=== PATIENT | male | born 1945 | race Caucasian/White ===

== ENCOUNTER 2022-04-13 13:23 | Outpatient (CLI) | payer MEDICARE, SELFPAY ==
[2022-04-13 18:51] LABS: Erythrocyte SedimentationRate* 50 mm/hr (2-15)
== END 2022-04-13 13:24 | disposition home or self-care (01) ==
PROVIDERS: PCP Family Medicine; Visit Provider Family Medicine
DX: R50.9 Fever, unspecified (principal)
CPT/HCPCS: 85651; 87086

== ENCOUNTER 2022-05-14 08:46 | Outpatient (CLI) | payer MEDICARE, SELFPAY ==
--- OUTSIDE RECORDS SUMMARY | 2022-05-14 09:05 | XMS_ITS | Encounter Summary ---
:1945 Author Organization [facility] Address [address] [place] [address]. [place] [address] Care Team Providers Name Role Phone Tello Torres MD Primary Care Provider Encounter Details Date Type Department Care Team Description 04/04/2022 Travel Social History Tobacco Use Types Packs/Day Years Used Date Former Smoker Quit: 03/17/19 87 Alcohol Use Standard Drinks/Week Comments Yes 0 (1 standard drink = 0.6 oz pure alcoho l) 1 drink every other day Alcohol Habits Answer Date Recorded How often do you have a drink containing Not asked alcohol? How many drinks containing alcohol do you have Not asked on a typical day when you are drinking? How often do you have six or more drinks on one Not asked occasion? Comment: 1 drink every other day 03/17/2012 Sex Assigned at Date Recorded Not on file COVID-19 Exposure Response Date Recorded In the last 10 days, have you been in contact with No / Unsu re 04/04/2022 1:21 PM CDT someone who was confirmed or suspected to have Coronavirus/COVID-19? documented as of this encounter Plan of Treatment Not on filedocumented as of this encounter Visit Diagnoses Not on filedocumented in this encounter Care Teams Tearer Press Clipping Relationship Specialty Start Date End Date Tello Torres MD PCP - General Family Practice 03/06/12 [facility] [address] [place] [id number] documented as of this encounter
--- OUTSIDE RECORDS SUMMARY | 2022-05-14 09:05 | XMS_ITS | Clinical Summary ---
:1945 Author Organization [facility] Address [address] [place] [id number] Care Team Providers Name Role Phone Tello Torres MD Primary Care Provider Allergies No known active allergies Medications Medication Sig Dispensed Refills Start Date End Date Status Atorvastatin Calcium Take 10 mg by 0 Active (LIPITOR PO) mouth At Bedtime. NIACIN CR PO Take 500 mg by 0 Ac tive mouth At Bedtime. Multiple Vitamin Take 1 tablet by 0 Active (MULTI-VITAMIN) per mouth daily. tablet oxyCODONE (ROXICODONE) Take 1-2 tablets 50 tablet 0 03/29/2012 Active 5 MG immediate release by mouth every 3 tabletIndications: hours as needed. Status post THR (total hip replacement) Active Problems Problem Noted Date Status post THR (total hip replacement) 03/27/2012 Advanced directives, counseling/discussion 03/27/2012 Overview: Received outside advance directive. HCD: Previously signed by patient and notarized by [employer]. Pet Stylist scanned into EMR as Advance Directive/Living Will document. View document and details in C ode Status History Report. Please see ad guillaume directive for specifics. 03/27/2012 Encounters Date Type Specialty Care Team Description 04/04/2022 Emergency EMERGENCY MEDICINE Benjamin Bullock Acut e pain of both shoulders; Other fatigue 04/04/2022 Travel from Last 3 Months Social History Tobacco Use Types Packs/Day Years [...] Assigned at Date Recorded Not on file Last Filed Vital Signs Vital Sign Reading Time Taken Comments Blood Pressure 132/87 04/04/2022 3:00 PM CDT Pulse 88 04/04/2022 3:00 PM CDT Temperature 36.8 ??C (98.3 ??F) 04/04/2022 1:27 PM CDT Respiratory Rate 16 04/04/2022 1:27 PM CDT Oxygen Saturation 95% 04/04/2022 3:15 PM CDT Inhaled Oxygen Concentration - - Weight 84.8 kg (187 lb) 03/27/2012 5:45 AM CDT Height 182.9 cm (6') 03/27/2012 5:39 AM CDT Body Mass Index 25.36 03/27/2012 5:39 AM CDT Plan of Treatment Health Maintenance Due Date Last Done Comments ANNUAL REVIEW OF HM ORDERS 1945 CT COLONOGRAPHY 1945 FIT-DNA (Cologuard) 1945 FIT 1945 FLEX SIG 1945 COLONOSCOPY 1956 COLORECTAL CANCER SCREENING 1956 HEPATITIS C SCREENING 1964 LIPID 1981 LUNG CANCER SCREENING 1996 AORTIC ANEURYSM SCREENING 2011 (SYSTEM ASSIGNED) FALL RISK ASSESSMENT 2011 MEDICARE ANNUAL WELLNESS 2011 VISIT Pneumococcal Vaccine: 65+ 12/07/2015 12/06/2014, 11/20/2010 , Years (2 - PPSV23 or PCV20) 10/22/2009 ADVANCE CARE PLANNING 03/27/2017 03/27/2012 PHQ-2 (once per calendar 08/15/2021 year) COVID-19 Vaccine (4 - 10/29/2021 07/01/2021, 10/31/2020, Booster for Moderna series) 10/03/2020 INFLUENZA VACCINE (#1) 2022 04/29/2020, 06/18/2019, 06/03/2018, Additional history exists DTAP/TDAP/TD IMMUNIZATION 04/11/2029 04/11/2019, 10/22/2009 (3 - Td or Tdap) ZOSTER IMMUNIZATION Completed 02/18/2021, 12/17/2020, 09/13/2007 HEPATITIS B IMMUNIZATION Aged Out No long er eligible based on patient 's age to complete this topic IPV IMMUNIZATION Aged Out No longer eligi ble based on patient 's age to complete this topic MENINGITIS IMMUNIZATION Aged Out No longe r eligible based on patient 's age to complete this topic Medical Devices Implanted Type Area Psychiatric Technician Device Shelf Model / Identifier Expiration Date Ser ial / Lot Imp Head Femoral Strk Biolox Delta Ceramic 36mm -5mm Right: 11/25/2016 [id number] / Implanted: Qty: 1 on 03/27/2012 by Andrzej Ricks MD at [facility] Hip / [id number] Procedures Procedure Name Priority Date/Time Associated Comments Diagnosis COVID-19 VIRUS STAT 04/04/2022 2:30 PM Results for this (CORONAVIRUS) BY PCR CDT procedu re are in the results section. CBC WITH PLATELETS & STAT 04/04/2022 2:13 PM R esults for this DIFFERENTIAL CDT procedure are i n the results section. CK TOTAL STAT 04/04/2022 2:13 PM Results f or this CDT procedure are i n the results section. ERYTHROCYTE STAT 04/04/2022 2:13 PM Results f or this SEDIMENTATION RATE CDT procedure are in AUTO the results section. CBC WITH PLATELETS AND STAT 04/04/2022 2:13 PM Results for this DIFFERENTIAL CDT procedure are i n the results section. TROPONIN T, HIGH STAT 04/04/2022 2:13 PM Resul ts for this SENSITIVITY CDT procedure are i n the results section. BASIC METABOLIC PANEL STAT 04/04/2022 2:13 PM Results for this CDT procedure are i n the results section. EKG 12-LEAD, TRACING STAT 04/04/2022 2:06 PM R esults for this ONLY CDT procedure are i n the results section. EKG CARDIAC - HIM SCAN 04/04/2022 12:00 AM CDT from Last 3 Months Results Asymptomatic COVID-19 Virus (Coronavirus) by PCR Nasopharyngeal (04/04/2022 2:30 PM CDT) Analysis Performed At Patho logist Time Signature SARS CoV2 PCR Negative Negative 04/04/2022 LABORATORY 3:23 PM CDT Comment: NEGATIVE: SARS-CoV-2 (COVID-19) RNA not detected, presumed negative. Specimen Anatomical Location / Collection Method Collection Sandoval e Received Time (Source) Laterality / Volume Swab NASOPHARYNGEAL Non-blood 04/04/2022 2:30 04/04/2022 2:42 STRUCTURE / Unknown Collection / PM CDT PM CDT Unknown Narrative [facility] - 04/04/2022 3:23 PM CDT Testing was performed using the Xpert Xpress SARS-CoV-2 Assay on the [employer]. A dditional information about this Emergency Use Authorization (EUA) a ssay can be found via the Lab Guide. This test should be ordered for t he detection of SARS-CoV-2 in individuals who meet SARS-CoV-2 clinical and/or epidemiological criteria. Test performance is unknown in asymptomatic patients. This test is for in vitro diagnostic use unde r the FDA EUA for laboratories certified under CLIA to per form high complexity testing. This test has not been FDA cleared or ap proved. A negative result does not rule out the presence of PCR in hibitors in the specimen or target RNA in concentration below the li adriano of detection for the assay. The possibility of a false negati ve should be considered if the patient's recent exposure or clinica l presentation suggests COVID-19. This test was validated by the [facility]. This laboratory is certified under the Clinical Laboratory Improvement Amendments of 1988 (CLIA-88) as qualified to perform high complexity laboratory testing. Benjamin Bullock MD LAB - MICRO GENERAL ORDERABL ES Performing Organization Address City/State/ZIP Code [place] [address] Care [facility] [address] Lab (1st floor, no room number) (ABNORMAL) CBC with platelets and differential (04/04/2022 2:13 PM CDT) Patholo gist Method Time Signature WBC Count 7.3 4.0 - 04/04/2022 LABORATORY 11.0 2:23 PM CDT 10e3/uL RBC Count 4.05 (L) 4.40 - 04/04/2022 [facility] 5.90 2:23 PM CDT 10e6/uL Hemoglobin 13.2 (L) 13.3 - 04/04/2022 [facility] 17.7 g/dL 2:23 PM CDT Hematocrit 39.7 (L) 40.0 - 04/04/2022 [facility] 53.0 % 2:23 PM CDT MCV 98 78 - 100 04/04/2022 [facility] fL 2:23 PM CDT MCH 32.6 26.5 - 04/04/2022 [facility] 33.0 pg 2:23 PM CDT MCHC 33.2 31.5 - 04/04/2022 [facility] 36.5 g/dL 2:23 PM CDT RDW 13.0 10.0 - 04/04/2022 [facility] 15.0 % 2:23 PM CDT Platelet Count 136 (L) 150 - 450 04/04/2022 [facility] 10e3/uL 2:23 PM CDT % Neutrophils 76 % 04/04/2022 [facility] 2:23 PM CDT % Lymphocytes 14 % 04/04/2022 [facility] 2:23 PM CDT % Monocytes 10 % 04/04/2022 [facility] 2:23 PM CDT % Eosinophils 0 % 04/04/2022 [facility] 2:23 PM CDT % Basophils 0 % 04/04/2022 [facility] 2:23 PM CDT % Immature 0 % 04/04/2022 [facility] Granulocytes 2:23 PM CDT NRBCs per 100 0 <1 /100 04/04/2022 [facility] WBC 2:23 PM CDT Absolute 5.5 1.6 - 8.3 04/04/2022 [facility] Neutrophils 10e3/uL 2:23 PM CDT Absolute 1.0 0.8 - 5.3 04/04/2022 [facility] Lymphocytes 10e3/uL 2:23 PM CDT Absolute 0.8 0.0 - 1.3 04/04/2022 [facility] Monocytes 10e3/uL 2:23 PM CDT Absolute 0.0 0.0 - 0.7 04/04/2022 [facility] Eosinophils 10e3/uL 2:23 PM CDT Absolute 0.0 0.0 - 0.2 04/04/2022 [facility] Basophils 10e3/uL 2:23 PM CDT Absolute 0.0 <=0.4 04/04/2022 [facility] Immature 10e3/uL 2:23 PM CDT Granulocytes Absolute NRBCs 0.0 10e3/uL 04/04/2022 [facility] 2:23 PM CDT Specimen Anatomical Collection Method / Collection Time Recei katya Time (Source) Location / Volume Laterality Blood VENOUS LINE / Venipuncture / 04/04/2022 2:13 2 2:19 Unknown Unknown PM CDT PM CDT Benjamin Bullock MD LAB - BLOOD ORDERABLES Performing Organization Address City/State/[place] [phone] Care Lab [address] Lab (1st floor, no room number) Troponin T, High Sensitivity (04/04/2022 2:13 PM CDT) P athologist Signature Troponin T, High 12 <=22 ng/L 04/04/2022 [facility] LABOR[facility] Y Sensitivity 2:49 PM CDT Specimen Anatomical Collection Method / Collection Time Recei katya Time (Source) Location / Volume Laterality Blood VENOUS LINE / Venipuncture / 04/04/2022 2:13 2 2:19 Unknown Unknown PM CDT PM CDT Benjamin Bullock MD LAB - BLOOD ORDERABLES Performing Organization Address City/[facility]/[place] [phone] Care Lab [address] Lab (1st floor, no room number) Erythrocyte sedimentation rate auto (04/04/2022 2:13 PM CDT) Patholo gist Method Time Signature Erythrocyte 19 0 - 20 04/04/2022 LABORATORY Sedimentation Rate mm/hr 3:06 PM CDT Specimen Anatomical Collection Method / Collection Time Recei katya Time (Source) Location / Volume Laterality Blood VENOUS LINE / Venipuncture / 04/04/2022 2:13 2 2:19 Unknown Unknown PM CDT PM CDT Benjamin Bullock MD LAB - BLOOD ORDERABLES Performing Organization Address City/[facility]/[place] [address] Care Lab [address] Lab (1st floor, no room number) CK total (04/04/2022 2:13 PM CDT) P athologist Signature CK 136 39 - 308 U/L 04/04/2022 [facility] 3:18 PM CDT Specimen Anatomical Collection Method / Collection Time Recei katya Time (Source) Location / Volume Laterality Blood VENOUS LINE / Venipuncture / 04/04/2022 2:13 2:19 Unknown Unknown PM CDT PM CDT Benjamin Bullock MD LAB - BLOOD ORDERABLES Performing Organization Address City/State/ZIP Code [place] [address] Care [facility] [address] Lab (1st floor, no room number) (ABNORMAL) Basic metabolic panel (04/04/2022 2:13 PM CDT) Analysis Performed At Patho logist Time Signature Creatinine 0.78 0.67 - 04/04/2022 LABORATORY 1.17 mg/dL 2:46 PM CDT Sodium 137 136 - 145 04/04/2022 LABORATORY mmol/L 2:46 PM CDT Potassium 4.1 3.4 - 5.3 04/04/2022 LABORATORY mmol/L 2:46 PM CDT Urea Nitrogen 11.2 8.0 - 23.0 04/04/2022 LABORATORY mg/dL 2:46 PM CDT Chloride 103 98 - 107 04/04/2022 LABORATORY mmol/L 2:46 PM CDT Carbon Dioxide 26 22 - 29 04/04/2022 LABORATORY (CO2) mmol/L 2:46 PM CDT Anion Gap 8 7 - 15 04/04/2022 LABORATORY mmol/L 2:46 PM CDT Glucose 128 (H) 70 - 99 04/04/2022 LABORATORY mg/dL 2:46 PM CDT GFR Estimate >90 >60 04/04/2022 LABORATORY mL/min/1.7 2:46 PM CDT 3m2 Comment: Effective August 04, 2021 eGF Rcr in adults is calculated using the 2020 CKD-EPI creatinine equation which includ es age and gender ([employer] Operator et al., NEJ, DOI: 10.1056/PELKig3453998) Calcium 9.2 8.8 - 10.2 mg/dL 04/04/2022 2:46 PM CDT [facility] Specimen Anatomical Collection Method / Collection Time Recei katya Time (Source) Location / Volume Laterality Blood VENOUS LINE / Venipuncture / 04/04/2022 2:13 2 2:19 Unknown Unknown PM CDT PM CDT Benjamin Bullock MD LAB - BLOOD ORDERABLES Performing Organization Address City/State/ZIP Code [place] [address] Care Lab [address] Lab (1st floor, no room number) EKG 12-lead, tracing only (04/04/2022 2:06 PM CDT) [facility] gist Method Time Signature Systolic Blood mmHg RADIOLOGY Pressure RESULTS Diastolic Blood mmHg RADIOLOGY Pressure RESULTS Ventricular Rate 92 BPM RADIOLOGY RESULTS Atrial Rate 92 BPM RADIOLOGY RESULTS DC Interval 154 ms RADIOLOGY RESULTS QRS Duration 88 ms RADIOLOGY RESULTS QT 348 ms RADIOLOGY RESULTS QTc 430 ms RADIOLOGY RESULTS P [employer] 50 degrees RADIOLOGY RESULTS R AXIS -31 degrees RADIOLOGY RESULTS T [employer] 52 degrees RADIOLOGY RESULTS Interpretation Sinus rhythm RADIOLOGY ECG Left axis deviation RESULTS Abnormal ECG No previous ECGs available Specimen Anatomical Collection Method Collection Time Receive d Time (Source) Location / / Volume Laterality 04/04/2022 2:06 PM 2 6:49 CDT PM CDT Benjamin Bullock MD ECG ORDERABLES Performing Organization Address City/[facility]/ZIP [facility] Phon e Number RADIOLOGY RESULTS EKG CARDIAC - HIM SCAN (04/04/2022 12:00 AM CDT) Specimen (Source) Anatomical Location Collection Method / Collectio n Time Received Time / Laterality Volume 04/04/2022 Narrative This result has an attachment that is no t available. Provider Outside ECG ORDERABLES from Last 3 Months Insurance Payer Benefit Plan / Subscriber ID Effective Dates Phone Addre ss Type Group ARE [facility] MEDICARE [id number] 2019-Present [phone] [address] [place] [address] Advance Directives For more information, please contact: [phone] Latest Code Status on File Code Status Date Activated Date Inactivated Comments Full Code 03/29/2012 10:59 AM 04/04/2022 1:21 PM Full Code 03/27/2012 1:01 PM 03/29/2012 10:59 AM Care Teams Ethnology Professor Relationship Specialty Start Date End Date Tello Torres MD PCP - General Family Practice 03/06/12 [facility] [address] [place] [id number]
--- OUTSIDE RECORDS SUMMARY | 2022-05-14 09:06 | XMS_ITS | Encounter Summary ---
:1945 Author Organization [facility] Address [address] [place] [id number] Care Team Providers Name Role Phone Tello Torres MD Primary Care Provider Reason for Visit Reason Comments Shoulder Pain Encounter Details Date Type Department Care Team Description 04/04/2022 Emergency [facility] Clayton Bullock MD Acute pain of both shoulders; [facility] Emergency Dep t [facility] Other fatigue [address] [place], [place] [address] [place] [id number] [place] [address] [place], [place] [id number] (Wo rk) Social History Tobacco Use Types Packs/Day Years [...] have Coronavirus/COVID-19? documented as of this encounter Last Filed Vital Signs Vital Sign Reading Time Taken Comments Blood Pressure 132/87 04/04/2022 3:00 PM CDT Pulse 88 04/04/2022 3:00 PM CDT Temperature 36.8 ??C (98.3 ??F) 04/04/2022 1:27 PM CDT Respiratory Rate 16 04/04/2022 1:27 PM CDT Oxygen Saturation 95% 04/04/2022 3:15 PM CDT Inhaled Oxygen Concentration - - Weight - - Height - - Body Mass Index - - documented in this encounter Discharge Instructions Discharge InstructionsBenjamin Bullock MD - 04/04/2022 3:25 PM CDT You came in today with fatigue and bilateral shoulder/upper arm pain. We did not find signs of heartdamage or muscle inflammation/breakdown. On my exam I was concerned for possible inflammation and/orinjury to the rotator cuffs. Please follow-up with your doctor to discuss further evaluation. Returnfor new or worsening symptoms. documented in this encounter Medications at Time of Discharge Medication Sig Dispensed Refills Start Date End Date Atorvastatin Calcium Take 10 mg by mouth 0 (LIPITOR PO) At Bedtime. Multiple Vitamin Take 1 tablet by 0 (MULTI-VITAMIN) per tablet mouth daily. NIACIN CR PO Take 500 mg by mouth 0 At Bedtime. oxyCODONE (ROXICODONE) 5 Take 1-2 tablets by 50 tablet 0 MG immediate release mouth every 3 hours tabletIndications: Status as needed. post THR (total hip replacement) documented as of this encounter ED Notes Michele Gamez RN - 04/04/2022 1:29 PM CDT Pt presents for complaint of bilateral upper arm and shoulder pain. Pt states this has been on goingfor a few days. Pt states he has existing shoulder issues, but the pain is now radiating down his biceps. Pt states pain is worse when lifting his arms. ABC intact, A&Ox4. Benjamin Bullock MD - 04/04/2022 1:21 PM CDT History Chief Complaint: Shoulder Pain HPI Colin Diaz is a 76 year old male who presents with malaise, fatigue, bilateral shoulder pain.Symptoms started about 4 days ago. There is no chest pain or shortness of breath or cough or neck pain or weakness or numbness in the arms. He reports his shoulders being banged up and gets pain fromtime to time. No new injuries he can think of. ROS: Review of Systems A 10 point ROS was obtained and negative except as noted here and in HPI Allergies: No Known Allergies Medications: Atorvastatin Calcium (LIPITOR PO) Multiple Vitamin (MULTI-VITAMIN) per tablet NIACIN CR PO oxyCODONE (ROXICODONE) 5 MG immediate release tablet Past Medical History: Past Medical History: Diagnosis Date ??? Hypertension Past Surgical History: Past Surgical History: Procedure Laterality Date ??? ARTHROPLASTY HIP 03/27/2012 Procedure: ARTHROPLASTY HIP; Right Total Hip ; Surgeon: Andrzej Izquierdo MD; Location: [facility] OR ??? wisdom teeth[ Family History: family history is not on file. Social History: reports that he quit smoking about 35 years ago. He does not have any smokeless tobacco history on file. He reports current alcohol use. He reports that he does not use drugs. PCP: Tello Torres Physical Exam Patient Vitals for the past 24 hrs: BP Temp Pulse Resp SpO2 04/04/22 1515 -- -- -- -- 95 % 04/04/22 1500 132/87 -- 88 -- 94 % 04/04/22 1445 92/74 -- 89 -- 95 % 04/04/22 1430 (!) 89/87 -- 88 -- 97 % 04/04/22 1327 (!) 140/84 98.3 ??F (36.8 ??C) 98 16 97 % Physical Exam VS: Reviewed per above HENT: normal speech EYES: sclera anicteric CV: Rate as noted, regular rhythm. RESP: Effort normal. Breath sounds are normal bilaterally. NEURO: Alert, moving all extremities with 5-5 strength, sensation intact light touch in the bilateral upper extremities. Bilateral radial pulses intact. MSK: No deformity of the extremities, pain with empty can maneuver in the bilateral shoulders. No bilateral upper extremity redness or swelling or warmth. SKIN: Warm and dry Emergency Department Course ECG: ECG dated 04/04/2022 at 1406: Normal sinus rhythm, left axis deviation, abnormal ECG. Ventricular rate 92 bpm. MI interval 154 ms. QRS duration 88 ms. QT/QTc 348/438 ms. P-R-T axes 50, -31, 52. Agree with computer interpretation. No prior ECG for comparison. Interpreted by Benjamin Bullock MD on 04/04/2022 at 2:15 PM. Laboratory: Labs Ordered and Resulted from Time of ED Arrival to Time of ED Departure BASIC METABOLIC PANEL - Abnormal Result Value Creatinine 0.78 Sodium 137 Potassium 4.1 Urea Nitrogen 11.2 Chloride 103 Carbon Dioxide (CO2) 26 Anion Gap 8 Glucose 128 (*) GFR Estimate >90 Calcium 9.2 CBC WITH PLATELETS AND DIFFERENTIAL - Abnormal WBC Count 7.3 RBC Count 4.05 (*) Hemoglobin 13.2 (*) Hematocrit 39.7 (*) MCV 98 MCH 32.6 MCHC 33.2 RDW 13.0 Platelet Count 136 (*) % Neutrophils 76 % Lymphocytes 14 % Monocytes 10 % Eosinophils 0 % Basophils 0 % Immature Granulocytes 0 NRBCs per 100 WBC 0 Absolute Neutrophils 5.5 Absolute Lymphocytes 1.0 Absolute Monocytes 0.8 Absolute Eosinophils 0.0 Absolute Basophils 0.0 Absolute Immature Granulocytes 0.0 Absolute NRBCs 0.0 TROPONIN T, HIGH SENSITIVITY - Normal Troponin T, High Sensitivity 12 ERYTHROCYTE SEDIMENTATION RATE AUTO - Normal Erythrocyte Sedimentation Rate 19 CK TOTAL - Normal CK 136 COVID-19 VIRUS (CORONAVIRUS) BY PCR - Normal SARS CoV2 PCR Negative Emergency Department Course: Reviewed: I reviewed nursing notes, vitals and past medical history Assessments: I obtained history and examined the patient as noted above. I rechecked the patient and explained findings. Disposition: The patient was discharged to home. Impression & Plan Medical Decision Making: Patient presents to the ER for evaluation of intermittent bilateral shoulder/upper arm pain over thepast 4 days. This is accompanied by extreme fatigue. On arrival vital signs are reassuring. On exam there is no evidence of neurovascular compromise in the bilateral upper extremities. No signs of joint effusion or skin soft tissue infection. No weakness or numbness to suggest obvious neuropathy in the extremities. With pain worsened with empty can maneuver, I am concerned for possible rotator cuff pathology contributing to symptoms. No evidence of ACS or rhabdomyolysis or elevated inflammatory markers to suggest processes such as PMR. COVID testing is negative. At this time no emergent condition identified to explain his symptoms. Encouraged ongoing primary care follow-up. Return precautions discussed prior to discharge. Diagnosis: ICD-10-CM 1. Acute pain of both shoulders M25.511 M25.512 2. Other fatigue R53.83 Discharge Medications: New Prescriptions No medications on file 04/04/2022 Benjamin Bullock MD Lindenbaum, Elan, MD 04/04/22 1542 documented in this encounter Plan of Treatment Not on filedocumented as of this encounter Procedures Procedure Name Priority Date/Time Associated Comments Diagnosis COVID-19 VIRUS STAT 04/04/2022 2:30 PM Results for this (CORONAVIRUS) BY PCR CDT procedu re are in the results section. CBC WITH PLATELETS AND STAT 04/04/2022 2:13 PM Results for this DIFFERENTIAL CDT procedure are i n the results section. TROPONIN T, HIGH STAT 04/04/2022 2:13 PM Resul ts for this SENSITIVITY CDT procedure are i n the results section. CBC WITH PLATELETS & STAT 04/04/2022 2:13 PM R esults for this DIFFERENTIAL CDT procedure are i n the results section. ERYTHROCYTE STAT 04/04/2022 2:13 PM Results f or this SEDIMENTATION RATE CDT procedure are in AUTO the results section. CK TOTAL STAT 04/04/2022 2:13 PM Results f or this CDT procedure are i n the results section. BASIC METABOLIC PANEL STAT 04/04/2022 2:13 PM Results for this CDT procedure are i n the results section. EKG 12-LEAD, TRACING STAT 04/04/2022 2:06 PM R esults for this ONLY CDT procedure are i n the results section. documented in this encounter Results Asymptomatic COVID-19 Virus (Coronavirus) by PCR [...] the Xpert Xpress SARS-CoV-2 Assay on the [employer]. A dditional information about this [...] COVID-19. This test was validated by the [facility]. This laboratory is certified under the Clinical Laboratory Improvement Amendments of 1988 (CLIA-88) as qualified to perform high complexity laboratory testing. Benjamin Bullock MD LAB - MICRO GENERAL ORDERABL ES Performing Organization Address City/[facility]/[place] [address] Care Lab [address] [facility] Lab (1st floor, no room number) CK [...] LAB - BLOOD ORDERABLES Performing Organization Address City/[facility]/ZIP [facility] [place] [address] Care Lab [address] Lab (1st floor, no room number) Erythrocyte sedimentation rate auto (04/04/2022 2:13 PM CDT) [facility] Method Time Signature Erythrocyte 19 0 - 20 04/04/2022 [facility] Sedimentation Rate mm/hr 3:06 PM CDT Specimen Anatomical Collection Method / Collection Time Recei katya Time (Source) Location / Volume Laterality Blood VENOUS LINE / Venipuncture / 04/04/2022 2:13 2:19 Unknown Unknown PM CDT PM CDT Benjamin Bullock MD LAB - BLOOD ORDERABLES Performing Organization Address City/State/ZIP Code Ph[place] [phone] Care Lab [address] Lab (1st floor, no room number) (ABNORMAL) CBC with platelets and differential (04/04/2022 2:13 PM CDT) [facility] Method Time Signature WBC Count 7.3 4.0 - 04/04/2022 [facility] 11.0 2:23 PM CDT 10e3/uL RBC [...] 2:23 PM CDT Absolute 0.0 <=0.4 04/04/2022 LABORATORY Immature 10e3/uL 2:23 PM CDT Granulocytes [...] Address City/State/ZIP Code [place] [address] Care Lab [address] [facility] Lab (1st floor, no room number) Troponin T, High Sensitivity (04/04/2022 2:13 PM CDT) athologist Signature Troponin T, High 12 <=22 [...] City/State/ZIP Code [place] [address] Care Lab [address] Lab (1st floor, no room number) [...] equation which includ es age and gender (Ruba et al., NEJM, DOI: 10.1056/MGOGdm6169612) Calcium 9.2 8.8 - 10.2 mg/dL 04/04/2022 2:46 PM CDT [facility] Specimen Anatomical Collection Method / Collection Time Recei katya Time (Source) Location / Volume Laterality Blood VENOUS LINE / Venipuncture / 04/04/2022 2:13 2 2:19 Unknown Unknown PM CDT PM CDT Benjamin Bullock MD LAB - BLOOD ORDERABLES Performing Organization Address City/State/ZIP Code [place] [address] Care Lab [address] Lab (1st floor, no room number) EKG 12-lead, tracing only (04/04/2022 2:06 PM CDT) [facility] Method Time Signature Systolic Blood mmHg RADIOLOGY Pressure RESULTS Diastolic Blood mmHg RADIOLOGY Pressure RESULTS Ventricular Rate 92 BPM RADIOLOGY RESULTS Atrial Rate 92 BPM RADIOLOGY RESULTS MI Interval 154 ms RADIOLOGY RESULTS QRS Duration 88 ms RADIOLOGY RESULTS QT 348 ms RADIOLOGY RESULTS QTc 430 ms RADIOLOGY RESULTS [place] 50 degrees RADIOLOGY RESULTS R AXIS -31 degrees RADIOLOGY RESULTS [place] 52 degrees RADIOLOGY RESULTS Interpretation Sinus rhythm RADIOLOGY ECG Left axis deviation RESULTS Abnormal ECG No previous ECGs available Specimen Anatomical Collection Method Collection Time Receive d Time (Source) Location / / Volume Laterality 04/04/2022 2:06 PM 2 6:49 CDT PM CDT Benjamin Bullock MD ECG ORDERABLES Performing Organization Address City/[facility]/ZIP [facility] Phon e Number RADIOLOGY RESULTS documented in this encounter Visit Diagnoses Diagnosis Acute pain of both shoulders Other fatigue documented in this encounter Care Teams Insemination Worker Relationship Specialty Start Date End Date Tello Torres MD PCP - General Family Practice 03/06/12 [facility] [address] [place] [address] documented as of this encounter
--- OUTSIDE RECORDS SUMMARY | 2022-05-14 09:06 | XMS_ITS | Encounter Summary ---
:1945 Author Organization [facility] Address [address] [place] [id number] Care Team Providers Name Role Phone Tello Torres MD Primary Care Provider Reason for Visit Auth/Cert - Closed Specialty Diagnoses / Procedures Referred By Contact Refer red To Contact Surgery Diagnoses Degenerative Joint Disease Rh Periop Services Procedures ARTHROPLASTY HIP [address] [place], [place] [address] Phone: Fax: Referral ID Status Reason Start Date Expiration Date Visits Requ ested Visits Authorized [id number] Closed 1 1 Encounter Details Date Type Department Care Team Description 03/27/2012 - Hospital Encounter [facility] Timbo Martín petersonsima post THR 03/30/2012 [place] [address] Inge Donnelly MD (total hip Surgical ORTHOPAEDIC replacement) [address] [facility] [place], [place] [address] [id number] [address] [place] [address] Social History Tobacco Use Types Packs/Day Years [...] Assigned at Date Recorded Not on file documented as of this encounter Last Filed Vital Signs Vital Sign Reading Time Taken Comments Blood Pressure 104/67 03/30/2012 7:00 AM CDT Pulse 78 03/30/2012 7:00 AM CDT Temperature 36.9 ??C (98.5 ??F) 03/30/2012 7:00 AM CDT Respiratory Rate 16 03/30/2012 9:13 AM CDT Oxygen Saturation 100% 03/30/2012 7:00 AM CDT Inhaled Oxygen Concentration - - Weight 84.8 kg (187 lb) 03/27/2012 5:45 AM CDT Height 182.9 cm (6') 03/27/2012 5:39 AM CDT Body Mass Index 25.36 03/27/2012 5:39 AM CDT documented in this encounter Discharge Summaries Mayito Izquierdo MD - 03/29/2012 11:00 AM CDT Diagnosis: DJD Hip Procedure: PADMINI Surgeon: Mayito Izquierdo MD Patient underwent total hip replacement without complication. Patient's hospital stay included physical therapy and DVT prophylaxis. Patient will follow -up in the office 10-14days post-op for wound check. Please refer to chart for any other specifics of this hospital stay. Mayito Izquierdo MD documented in this encounter Discharge Instructions Discharge InstructionsCrintea-Eleanor Tilley MD - 03/30/2012 10:39 AM CDT Call md if: 1.Uncontrolled/persistant temperature (chiills, sweats) 2. Uncontrolled pain despite pain medication 3. Numbness or tingling in operative leg, weakness, falls 4. Increased/persistant redness,swelling, bruising, drainage (yellow/odourous), or bleeding from incision or incision pulling apart. 5. Dizziness, lightheaded, sedation 6. Calf pain, hard/swollen/warm area, chest pain or shortness of breath 7. Constipation despite taking over the counter stool softner as directed and laxative for constipation (take as directed) Other instructions: See general discharge instruction sheet for hips. 1. Do exercises as instructed by therapist 2. Observe your hip precautions. 3. Walk daily increasing distance and time each day by a little. 4. Ice hip for swelling and discomfort 3-4 times daily for 20 minutes 5. May shower, change dressing daily and examine incision when uncovered for s/s of infections. Do not soak in tub or pool 6.Notify your dentist of your implant so you can get antibiotics before any dental work or for any other invasive procedure. 7.Follow up apt. 10-14 days,call to make apt. [phone] Izquierdo Follow up with your primary doctor in 3-4 weeks and ask him/her to follow up on your blood cells ( hemoglobin, Platelets) When you have a good bowel regimen you may start taking iron tablet once or twice a day documented in this encounter Medications at Time of Discharge Medication Sig Dispensed Refills Start Date End Date Atorvastatin Calcium Take 10 mg by mouth 0 (LIPITOR PO) At Bedtime. Multiple Vitamin Take 1 tablet by 0 (MULTI-VITAMIN) per mouth daily. tablet NIACIN CR PO Take 500 mg by 0 mouth At Bedtime. oxyCODONE (ROXICODONE) 5 Take 1-2 tablets by 50 tablet 0 MG immediate release mouth every 3 hours tabletIndications: Status as needed. post THR (total hip replacement) aspirin EC 325 MG tablet Take 2 tablets by 120 tablet 0 03/1504/29/2012 mouth two times daily for 30 days. documented as of this encounter Progress Notes Mayito Izquierdo MD - 04/01/2012 12:08 AM CDT Mayito Izquierdo MD - 03/31/2012 9:34 PM CDT Mayito Izquierdo MD - 03/31/2012 9:34 PM CDT Mayito Izquierdo MD - 03/31/2012 9:34 PM CDT Mayito Izquierdo MD - 03/31/2012 9:34 PM CDT Mayito Izquierdo MD - 03/31/2012 9:34 PM CDT Mayito Izquierdo MD - 03/30/2012 1:42 PM CDT [facility] Orthopedic Post-Op Progress Note Assessment and Plan: Assessment: Post-operative day #3 Total hip arthoplasty (Right) Doing well. Pain well-controlled. Plan: Dc today Interval History: Doing well. Continues to improve. Pain is well-controlled. No fevers. Physical Exam: BP 104/67 Pulse 78 Temp(Src) 98.5 ??F (36.9 ??C) (Oral) Resp 16 Ht 1.829 m (6') Wt 84.823 kg (187 lb) BMI 25.36 kg/m2 SpO2 100% Data: Hemoglobin Date Value Range Status 03/30/2012 9.6* 13.3-17.7 (g/dL) Final ] INR/Prothrombin Time MAYITO IZQUIERDO MD Eleanor Raymundo MD - 03/30/2012 10:40 AM CDT [facility] Hospitalist Progress Note Admission day 03/27/2012 Assessment and Plan: Patient admitted for elective right total hip arthroplasty on Mar 27 had post op anemia and sec syncopal episode, feels better and he wants to be discharged today. No acute c/o. 66 yo with hx of HTN, hyperlipdiemia, DJD POD 2 s/p elective RTHA. Had significant intra-op blood loss, with transfusion of 2u PRBC, 1u FFP and 1u Plt. Post-op hgb was 8.5 after the 2 units. Yesterday had episode of dizziness/presyncope after getting OOB. Was transfused 2 more units of RBC later yesterday. A/P: Syncopal episode on Mar 28 likely related to hypovolemia from acute blood loss anemia. Lisinopril held because low BP ASA held because of the recent bleeding ( no Hx of CAD noted ) Acute post-surgical blood loss anemia: Had significant intra-op blood loss, with transfusion of 2u PRBC, 1u FFP and 1u Plt. Post-op hgb was 8.5 after the 2 units. Thrombocytopenia: stable. Instructed to f/u on it with pcp Hyperlipidemia. niacin and Lipitor . Status post right total hip arthroplasty. The patient will continue with PT and OT as tolerated and pain control as per Orthopedics. DVT prophylaxis. Per Orthopedics. DIspo: Per ortho PADMINI pathway. Interval History: No acute c/o. He feels well and he wants to be discharged ROS: negative for fever, chills, cough, wheezes, chest pain, shortness of breath, vomiting, abdominal pain, leg swelling Physical Exam: Blood pressure 104/67, pulse 78, temperature 98.5 ??F (36.9 ??C), temperature source Oral, resp. rate 16, height 1.829 m (6'), weight 84.823 kg (187 lb), SpO2 100.00%. NAD, appears comfortable Skin: no rashes Chest: clear to auscultation bilaterally, good respiratory effort Heart: S1 S2, RRR, no mgr appreciated Abdomen: soft, not tender, Extremities: no clubbing, cyanosis or edema. Neurologic: A, Ox3, no focal signs appreciated Vital Sign Ranges Temperature Temp Av ??F (37.2 ??C) Min: 98.5 ??F (36.9 ??C) Max: 100.2 ??F (37.9 ??C) Blood pressure Systolic (24hrs), Av mmHg, Min:104 mmHg, Max:132 mmHg Diastolic (24hrs), Av mmHg, Min:65 mmHg, Max:74 mmHg Pulse Pulse Av.8 Min: 71 Max: 100 Respirations Resp Av.7 Min: 16 Max: 20 Pulse oximetry SpO2 Av % Min: 95 % Max: 100 % Medications: Current Facility-Administered Medications Medication ??? magnesium hydroxide (MILK OF MAGNESIA) suspension 30 mL ??? 0.9 % sodium chloride IV solution ??? sodium chloride 0.9 % BOLUS 500 mL ??? niacin (NIASPAN) CR tablet 500 mg ??? atorvastatin (LIPITOR) tablet 10 mg ??? sodium chloride (PF) 0.9% PF flush 3 mL ??? sodium chloride (PF) 0.9% PF flush 3 mL ??? sodium chloride (PF) 0.9% PF flush 3 mL ??? rivaroxaban ANTICOAGULANT (XARELTO) tablet 10 mg ??? naloxone (NARCAN) injection 0.1-0.4 mg ??? ondansetron (ZOFRAN-ODT) disintegrating tablet 4 mg Or ??? ondansetron (ZOFRAN) injection 4 mg ??? docusate sodium (COLACE) capsule 100 mg ??? bisacodyl (DULCOLAX) suppository 10 mg ??? phosphate (FLEET) enema 1 enema ??? zolpidem (AMBIEN) tablet 5 mg ??? celecoxib (celeBREX) capsule 200 mg ??? phenol-menthol (CEPASTAT) lozenge 1-2 lozenge ??? DISCONTINUE ACUTE CARE OCCUPATIONAL THERAPIST by end of POD1 ??? HYDROmorphone (DILAUDID) injection 0.2-0.4 mg ??? oxyCODONE (ROXICODONE) immediate release tablet 5-10 mg ??? hydrOXYzine (ATARAX) tablet 25-50 mg Prescriptions prior to admission Medication Sig Dispense Refill ??? Atorvastatin Calcium (LIPITOR PO) Take 10 mg by mouth At Bedtime. ??? NIACIN CR PO Take 500 mg by mouth At Bedtime. ??? Multiple Vitamin (MULTI-VITAMIN) per tablet Take 1 tablet by mouth daily. ??? DISCONTD: aspirin 325 MG tablet Take by mouth daily. ??? DISCONTD: LISINOPRIL PO Take 10 mg by mouth daily. Intake/Output Summary (Last 24 hours) at 03/30/12 1040 Last data filed at 03/30/12 0800 Gross per 24 hour Intake 2170 ml Output 3450 ml Net -1280 ml Data: Recent labs, imaging, and other studies were reviewed. Lab 03/30/12 0550 03/29/12 0552 03/28/12 1710 03/28/12 0532 WBC 8.3 9.2 -- 10.5 HGB 9.6* 10.0* 10.9* -- HCT 28.1* 29.3* -- 24.6* MCV 95 96 -- 96 PLT 80* 82* 95* -- Lab 03/29/12 0552 03/28/12 0532 03/28/12 0530 03/24/12 0900 NA -- 137 -- -- POTASSIUM -- 4.2 -- 3.9 CHLORIDE -- 107 -- -- CO2 -- 24 -- -- ANIONGAP -- 6 -- -- GLC 101* 117* 117* -- BUN -- 6* -- -- CR -- 0.68 -- 0.84 GFRESTIMATED -- >90 -- >90 GFRESTBLACK -- >90 -- >90 DEX -- 7.4* -- -- MAG -- -- -- -- PHOS -- -- -- -- PROTTOTAL -- -- -- -- ALBUMIN -- -- -- -- BILITOTAL -- -- -- -- ALKPHOS -- -- -- -- AST -- -- -- -- ALT -- -- -- -- Mayito Izquierdo MD - 03/29/2012 11:06 AM CDT EIGHT Mayito Izquierdo MD - 03/29/2012 10:55 AM CDT [facility] Orthopedic Post-Op Progress Note Assessment and Plan: Assessment: Post-operative day #2 Total hip arthoplasty (Right) Doing well. Pain well-controlled. Plan: Continue physical therapy Interval History: Doing well. Continues to improve. Pain is well-controlled. No fevers. Much better after transfusion.Dc tomorrow Physical Exam: BP 121/70 Pulse 82 Temp(Src) 98.3 ??F (36.8 ??C) (Oral) Resp 18 Ht 1.829 m (6') Wt 84.823 kg (187 lb) BMI 25.36 kg/m2 SpO2 98% Data: Hemoglobin Date Value Range Status 03/29/2012 10.0* 13.3-17.7 (g/dL) Final ] INR/Prothrombin Time MAYITO IZQUIERDO MD Sveta Marino MD - 03/29/2012 9:12 AM CDT [facility] Hospitalist Progress Note Assessment and Plan: Addendum: Plans for discharge noted, discharge medications reconciled. Will have patient hold ASA and Lisinopril until seen by PCP in one week with repeat CBC 66 yo with hx of HTN, hyperlipdiemia, DJD POD 2 s/p elective RTHA. Had significant intra-op blood loss, with transfusion of 2u PRBC, 1u FFP and 1u Plt. Post-op hgb was 8.5 after the 2 units. Yesterday had episode of dizziness/presyncope after getting OOB. Was transfused 2 more units of RBC later yesterday. A/P: 1. Syncopal episode likely related to hypovolemia from acute blood loss anemia. -- Patient tells me he sat at the edge of bed without symptoms. Planning to work with PT/OT today tosee if symptoms recur -- Continue to hold lisinopril -- BP slightly soft overnight, will gently rehydrate with 500 cc more of NS -- Holding ASA ( no Hx of CAD noted ) 2. Acute post-surgical blood loss anemia: Hb stable at around 10 today after receiving 2 unit of pRBC yesterday afternoon. Recheck tomorrow am if patient stays overnight. 3. Thrombocytopenia: Nor prior baseline, so unclear if chronic or acute, could be related to consumption due to acute bleeding, stable. May need further work up as outpatient if does not improve. 4. Hyperlipidemia. The patient can be resumed on his niacin and Lipitor as tolerated. 5. Status post right total hip arthroplasty. The patient will continue with PT and OT as tolerated and pain control as per Orthopedics. 6. DVT prophylaxis. Per Orthopedics. 7. DIspo: Per ortho PADMINI pathway. Interval History: Feels well today, has not had a chance to stand up yet, pain is controlled. Physical Exam: Blood pressure 121/70, pulse 82, temperature 98.3 ??F (36.8 ??C), temperature source Oral, resp. rate 18, height 1.829 m (6'), weight 84.823 kg (187 lb), SpO2 98.00%. Exam: GENERAL: Comfortable. PSYCH: pleasant, oriented, No acute distress. EYES: Normal conjunctiva. HEART: Normal S1, S2 with no edema. LUNGS: Clear to auscultation, SKIN: Dressing over right hip c/d/i , no surrounding hematoma felt Data: NA 137 03/28/2012 CHLORIDE 107 03/28/2012 BUN 6 03/28/2012 POTASSIUM 4.2 03/28/2012 CO2 24 03/28/2012 CR 0.68 03/28/2012 Lab Results Component Value Date WBC 9.2 03/29/2012 WBC 10.5 03/28/2012 HGB 10.0* 03/29/2012 HGB 10.9* 03/28/2012 PLT 82* 03/29/2012 PLT 95* 03/28/2012 CR 0.68 03/28/2012 CR 0.84 03/24/2012 Medications: I have reviewed this patient's current medications. Bobo Terry OT - 03/28/2012 3:38 PM CDT 03/28/12 4347 Living Environment [R] Lives With spouse Living Arrangements house Home Accessibility stairs to enter home;stairs w/i home;tub/shower is not walk in Number of Stairs to Enter Home 3 Number of Stairs Within Home 2 Transportation Available car;family or friend will provide Self-Care Dominant Hand right Usual Activity Tolerance excellent Current Activity Tolerance poor Regular Exercise yes Activity/Exercise/Self-Care Comment bikes regularly. [R] Functional Level Prior [R] Ambulation 0 - independent [R]Transferring 0 - independent [R] Toileting 0 - independent [R] Bathing 0 - independent [R] Dressing 0 - independent [R] Eating 0 - independent [R] Communication 0 - understands/communicates w/o difficulty [R] Cognition 0 - no cognition issues reported [R] Fall history within last six months no [R] Which of the above functional risks had a recent onset or change? ambulation;transferring;toileting;bathing;dressing General Information, OT Eval Onset of Illness/Injury or Date of Surgery - Date 03/27/[address] Thakkar Patient/Family Goals Statement To get out as soon as possible and to be comfortable using a walker Pertinent History of Current Problem Pt s/p R PADMINI posterior approach on 03/27/12. Precautions/Limitations right hip precautions Weight-Bearing Status - RLE weight-bearing as tolerated Cognitive Status Examination - OT Eval Orientation orientation to person, place and time Level of Consciousness alert Follows Commands and Answers Questions 100% of the time Personal Safety and Judgment intact Memory intact Attention No deficits were identified Organization/Problem Solving No deficits were identified Executive Function No deficits were identified Visual Perception - OT Eval Visual Perception no deficits were identified Visual Perception Comments wears glasses, light sensitivity this a.m. Sensory Examination - OT Eval Sensory Examination (WFL) no deficits were identified Pain Assessment Patient Currently in Pain Yes, see Vital Sign flowsheet (Pt rates resting pain 3/10) Range of Motion (ROM), OT Eval Range of Motion (WFL) no deficits were identified ROM Comment B UE AROM WNLs Strength Manual Muscle Testing Results no deficits were identified Strength Comments B UE AROM Mobility Bed Mobility Bed mobility skill: Scooting/Bridging;Bed mobility skill: Sit to supine;Bed mobility skill: Supine to sit Bed Mobility Skill: Scooting/Bridging, Rehab Eval Level of [place]: Scooting/Bridging minimum assist (75% patients effort) Physical Assist/Nonphysical Assist: Scooting/Bridging 1 person assist Bed Mobility Skill: Sit to Supine Level of [place]: Sit/Supine minimum assist (75% patients effort) Physical Assist/Nonphysical Assist: Sit/Supine verbal cues;supervision;1 person assist Assistive Device: Sit/Supine overhead trapeze Bed Mobility Skill: Supine to Sit Level of [place]: Supine/Sit minimum assist (75% patients effort) Physical Assist/Nonphysical Assist: Supine/Sit supervision;verbal cues;1 person assist Assistive Device: Supine/Sit overhead trapeze Activities of Daily Living Analysis Impairments Contributing to Impaired Activities of Daily Living pain;strength decreased;post surgical precautions;flexibility decreased General Therapy Interventions Planned Therapy Interventions ADL retraining;transfer training;bed mobility training Clinical Impression, OT Eval Criteria for Skilled Therapeutic Interventions Met yes;treatment indicated OT Diagnosis Decreased independence with ADLs. Rehab Potential good, to achieve stated therapy goals Therapy Frequency daily Predicted Duration of Therapy Intervention (days/wks) 1 week Anticipated Equipment Needs at Discharge shower chair Anticipated Discharge Disposition inpatient rehabilitation facility Risks and Benefits of Treatment have been explained. Yes Patient, Family & other staff in agreement with plan of care Yes Total Evaluation Time Total Evaluation Time (Minutes) 10 Kinjal Uriostegui LSW - 03/28/2012 11:23 AM CDT SWS D: Per MD request to see regarding discharge planning. Chart reviewed, noted pt's admit yesterday after surgery for R THR, noted PT assessment with anticipation of pt's return home on discharge. Pt lives with in their home in [place], stairs to enter and within home. Pt has been independent with ambulation and ADLs prior to his surgery. A: Based on progress thus far anticipate pt's return home on discharge with assist of as needed. PT/OT to assess for and issue needed DME for ambulation and ADLs adjustment. P: No SW needs identified at this time, available until discharge should needs arise. EIGHT Mayito Izquierdo MD - 03/28/2012 10:18 AM CDT [facility] Orthopedic Post-Op Progress Note Assessment and Plan: Assessment: Post-operative day #1 Total hip arthoplasty (Right) Doing well. Pain well-controlled. Plan: Start physical therapy Interval History: Doing well. Continues to improve. Pain is well-controlled. No fevers. X ray ok. hgb low, is to have 2 more units of blood Physical Exam: BP 94/53 Pulse 75 Temp(Src) 98.2 ??F (36.8 ??C) (Oral) Resp 16 Ht 1.829 m (6') Wt 84.823 kg (187 lb) BMI 25.36 kg/m2 SpO2 99% Data: Hemoglobin Date Value Range Status 03/28/2012 8.5* 13.3-17.7 (g/dL) Final ] INR/Prothrombin Time MAYITO IZQUIERDO MD Cleopatra Torres, PT - 03/28/2012 8:57 AM CDT 03/28/12 0800 Quick Adds Type of Visit Initial Living Environment [R] Lives With spouse Living Arrangements house Number of Stairs to Enter Home 3 Number of Stairs Within Home 2 Transportation Available car;family or friend will provide Self-Care Dominant Hand right Usual Activity Tolerance excellent Current Activity Tolerance poor Regular Exercise yes (bike, gym 3x/wk) Equipment Currently Used at Home no Functional Level Prior [R] Ambulation 0 - independent [R]Transferring 0 - independent [R] Toileting 0 - independent [R] Bathing 0 - independent [R] Dressing 0 - independent [R] Cognition 0 - no cognition issues reported [R] Fall history within last six months no General Information Onset of Illness/Injury or Date of Surgery - Date 03/27/[address] Thakkar Patient/Family Goals Statement To return home back to independence Pertinent History of Current Problem s/p R PADMINI d/t DJD Precautions/Limitations right hip precautions Weight-Bearing Status - RLE weight-bearing as tolerated General Observations Patient supine in bed upon arrival, pleasant and agreeable to PT Cognitive Status Examination Orientation orientation to person, place and time Level of Consciousness alert Follows Commands and Answers Questions 100% of the time Personal Safety and Judgment intact Memory intact Pain Assessment Patient Currently in Pain Yes, see Vital Sign flowsheet (11/17) Posture Posture Posture was appropriate Range of Motion (ROM) ROM Comment L LE WFL for transfers and mobility, R LE hip motions decreased s/p R PADMINI Strength Strength Comments L LE WFL for transfers and mobility, impaired R LE s/p R PADMINI Mobility Mobility Comments Independent Transfer Skills Transfer Comments Justin for advancing LE's to EOB, independent with sit to stand to FWW with cues forhand placement, difficulty adhering to hip precautions Gait, PT Eval Gait Comments ambulated approx 3' from EOB to w/c CGA with wheeled walker, good weight bearing onto R LE Balance Balance Comments sitting balance good, standing balance impaired s/p R PADMINI Sensory Examination Sensory Perception no deficits were identified General Therapy Interventions Planned Therapy Interventions gait training;ROM;strengthening;transfer training;home program guidelines Clinical Impression Criteria for Skilled Therapeutic Interventions Met yes;treatment indicated PT Diagnosis s/p R PADMINI APTA Preferred Practice Pattern musculoskeletal Influenced by the following impairments pain, decreased ROM, impaired strength Functional limitations due to impairments impaired functional mobility Rehab Potential good, to achieve stated therapy goals Therapy Frequency 2 times/day Predicted Duration of Therapy Intervention (days/wks) 3 days Anticipated Discharge Disposition home;home w/ assist Risk & Benefits of therapy have been explained Yes Patient, Family & other staff in agreement with plan of care Yes Clinical Impression Comments Patient is a 66 y/o male who presents s/p R PADMINI. Patient presents with impairments in ROM, strength, and pain resulting in impaired functional mobility. Skilled PT is indicated to address above mentioned deficits to return to PLOF. Prognosis is good to return home. Total Evaluation Time Total Evaluation Time (Minutes) 10 Marie Damon - 03/27/2012 1:41 PM CDT 03/27/12 0600 [R] Advance Directives [R] Is there an Advance Health Care Directive? Yes Directive Location Copy in chart Validation of Advance Healthcare Directive Reviewed and valid [facility] Progress Note [facility] Advance Directive Advance Directive found on paper chart, reviewed and validated. AD has not yet been scanned into patient's electronic chart. documented in this encounter H&P Notes Marce Provider - 03/24/2012 10:43 AM CDT Flakita Zheng - 03/17/2012 11:06 AM CDT documented in this encounter Consult Notes Harika Evans PA-C - 03/28/2012 9:47 AM CDT Hospitalist consult Dictated 66 yo with hx of HTN, hyperlipdiemia, DJD POD 1 s/p elective RTHA. Had significant intra-op blood loss, s/p 2u PRBC, 1u FFP and 1u Plt. Post-op hgb was 8.5 after the 2 units. Has no hx of coagulapathy,bleeding d/o hematologic d/o. This am RR was called 2/2 near syncope/syncopal episode when getting OOB with PT. C/o being lightheadedness, dizziness, passed out for a few seconds and came through when sat back down to chair. BP in the 94's after being sat down to wheelchair. Sxs resolved currently. A/P: 1. Syncopal episode likely related to hypovolemia from acute blood loss anemia -transfuse 2 U prbc now -check repeat hgb and plt this afternoon -check INR -hold lisinopril Harika Evans PA-C - 03/28/2012 9:46 AM CDT MEDICINE CONSULTATION PRIMARY CARE PROVIDER: Tello Torres MD. REASON FOR CONSULTATION: Postop medical management and presyncopal episode. HISTORY OF PRESENT ILLNESS: Colin Diaz is a 66-year-old gentleman with a past medical history significant for hypertension and hyperlipidemia who underwent elective right total hip arthroplasty secondary to degenerative joint disease. I actually saw him this morning in the setting of rapid response in which he had a presyncopal/syncopal episode while getting up in a standing position with the physical therapist. In reviewing the operative records, it was noted that there was significant blood loss during the case, not from any 1 source, but was constantly oozing. He had an estimated 2,500 cc of estimated blood loss. Therefore, he got 2 units of packed red blood cell intraoperatively along with 2 units of plasma, 2 units of FFP and 1 unit of platelets. His postoperative hemoglobin this morning after 2 units intraoperatively yesterday is 8.5 from a preoperative of 15. He did have significant drain output of 890 after surgery, but it was clamped and overnight it just put out 200. For total net I's and O's, he is currently still up to 2,900 cc since the beginning of OR. His blood pressure overnight has been fairly stable in the low 110s. However, early this morning he was somewhat hypotensive with a blood pressure 84/48, and he got 500 cc of normal saline. His blood pressure then improved into the mid 90s, but when working physical therapy he did become lightheaded and dizzy. His eyes kindof rolled backwards and he fell down to the wheelchair. He did pass out for maybe a few seconds, butopened his eyes immediately once he reached the wheelchair. He otherwise denies any other complaintssuch as chest pain, shortness of breath, nausea or vomiting, but he is somewhat diaphoretic. Currently, as he is sitting, he states that his symptoms have improved. He is no longer lightheaded and dizzy. His blood pressure taken at that time was 94/53 with a heart rate of 75 and sats in the 99s on room air. Otherwise, he had been in normal state of health prior to surgery. He has well- controlled blood pressure and hyperlipidemia with no recent illness. He has never had any heart attacks or strokes. No previous history of arrhythmias. PAST MEDICAL HISTORY: 1. Hypertension. 2. Hyperlipidemia. 3. DJD. 4. Status post skin cancer removal of basal cell carcinoma. MEDICATIONS: 1. Lipitor 10 mg daily. 2. Lisinopril 10 mg daily. 3. Niacin extended release 500 mg daily. 4. Aspirin 325 mg daily, which he stopped on the . 5. Multivitamins daily. ALLERGIES: No known drug allergies. FAMILY HISTORY: Reviewed and noncontributory. His father did have a history of coronary artery disease and hypertension. Mother had osteoporosis. No history of DVTs or PEs. SOCIAL HISTORY: The patient is a nonsmoker and nondrinker. REVIEW OF SYSTEMS: A 12-point system was reviewed and is all negative beyond those stated in HPI. PHYSICAL EXAMINATION: VITAL SIGNS: T-max is 98.2 with a heart rate of 75. His current blood pressure while sitting is 94/53, respirations are 16 and he is saturating 99% on room air. GENERAL: The patient is an alert, oriented gentleman who is somewhat pale and diaphoretic. HEENT: Pupils are equal, round and react to light. EOMs are intact. Sclerae are nonicteric. Conjunctivae are pink. Oral mucosa is pink and moist. NECK: Supple with no evidence cervical lymphadenopathy or thyromegaly. Trachea is midline. CARDIAC: Regular rate and rhythm, normal S1 and S2, with no significant murmur, rubs or gallops appreciated. PULMONARY: Clear to auscultation bilaterally. No wheezing, rales or rhonchi. No use of accessory muscles or intercostal retraction. ABDOMEN: Bowel sounds are present. Soft, nontender and nondistended with no hepatomegaly. EXTREMITIES: No edema. His right hip dressing is clean, dry and intact with a drain intact. NEUROLOGIC: Cranial nerves II-XII are intact. He has bilateral symmetric upper and lower extremity strength. Sensation is intact distally. He has no focal deficits. PSYCHIATRIC: Mood and affect are appropriate. LABORATORY RESULTS: Again, as discussed above, postoperative hemoglobin is 8.5. White count is normal at 10.5 with a platelet count of 98 with no preoperative hemoglobin of 15. BMP is currently pending. ASSESSMENT/PLAN: Colin Diaz is a 66-year-old gentleman with a history of hypertension and hyperlipidemia who underwent elective right total hip arthroplasty secondary to severe progressive DJD. Heexperienced significant blood loss of 2,500 cc intraoperatively, although with no significant specific source of bleeding identified. He did receive 2 units of packed red blood cells along with FFP michelle unit of platelets intraoperatively per report. He did experience a syncopal episode this morning when working with physical therapy, likely related to vasovagal reaction given his hypovolemia and hypotension. 1. Syncopal episode. Again, I suspect this is related to vasovagal response given that he is hypovolemic secondary to acute blood loss anemia. He is still down 7 grams of blood from where he was preoperatively. I am going to give him 500 cc of normal saline and transfuse 2 units of packed red blood cells this morning with a repeat hemoglobin later this afternoon. Ideally, I would like to keep his hemoglobin around 10 if possible. He does have mild thrombocytopenia with a platelet count of 98, although with no previous comparison. He has no history of thrombocytopenia or any type of hematological illness or malignancy that we are aware of. We will continue to monitor him closely. 2. Acute post-surgical blood loss anemia: Again, as stated above, he will receive 2 units of packed red blood cells today, and we will monitor his hemoglobin and platelets later this afternoon. Again, he has previous known history of coagulopathies or hematological disease. 3. Hypertension. Blood pressure is low related to hypovolemia. His lisinopril has been held today. This can be resumed as blood pressure allows. 4. Hyperlipidemia. The patient can be resumed on his niacin and Lipitor as tolerated. 5. Status post right total hip arthroplasty. The patient will continue with PT and OT as tolerated and pain control as per Orthopedics. 5. DVT prophylaxis. The patient is on Xarelto as per Orthopedics. We will continue to monitor his blood counts closely. Should he have continued bleeding from the drain or persistent anemia despite transfusion, we could consider holding off on his anticoagulation, but ultimately I will defer this to Or thopedics. This patient was discussed with Dr. Marino, who agrees with current plans as outlined above. SVETA MARINO MD As dictated by SALLY HOLLINS MT: MARÍA ELENA#[id number] Name: COLIN DIAZ Account: [id number] : 1945 Consult Date: 03/28/2012 Document: [id number] cc: Tello Torres MD documented in this encounter OR Notes OR Anesthesia - Mayito Izquierdo MD - 03/31/2012 9:39 PM CDT documented in this encounter Miscellaneous Notes Plan of Care - Bhargavi Sebastian OT - 03/30/2012 4:48 PM CDT Problem: General Rehab Plan of Care Goal: Occupational Therapy Goals The patient and/or their labor union business representative will achieve their patient-specific goals related to the plan of care. The patient-specific goals include: Goals to be met by 04/03/12. 1. Mod I with toilet transfer, AE prn. 2. Mod I with tub transfer, DME prn. 3. Mod I with total body dressing, AE prn. 4 I with standing at sink for 3 grooming/hyg. Tasks. Frequency: daily Fall precautions Occupational Therapy Discharge Summary Reason for discharge: Discharged from facility Progress towards goals: Goals partially met. Barriers to achieving goals: Pt. requiring some verbal cues to maintain hip precautions when reaching.. Recommendation(s): No further therapy is recommended. Pt. Discharged home with family to assist as needed. Plan of Care - Maia Lee RN - 03/30/2012 11:17 AM CDT Problem: IP GENERAL POC-ADULT,OB,BEHAVIORAL FVCPM Goal: Individualization/Patient-Specific Goal (Adult,OB,Behavioral The patient and/or their labor union business representative will achieve their patient-specific goals related to the plan of care. The patient-specific goals include: Past medical history only for HTN. CTS: Discharge planning for return home. Large blood loss in surgery 03/27/12, questioning clotting disorder. Outcome: Adequate for Discharge Date Met: 03/30/12 RN:pt vss Lungs: are clear, encouraged pt to use IS hourly BS:+ pt is eating and drinking well, adequate output. No bm gave MOm and prune juice CMS:+, Pillow support under operative leg.Dressing is CDI. Minor swelling Pain: controlled with pain meds before pt. Ice to operative extremity. Activity: Up with SBA and walker, doing well in pt, tolerated wheelchair after pt. D?c to home today, reviewed instructions and meds filled rx's given to pt at d/c. Plan of Care - Cleopatra Torres, PT - 03/30/2012 11:05 AM CDT Problem: General Rehab Plan of Care Goal: Physical Therapy Goals The patient and/or their labor union business representative will achieve their patient-specific goals related to the plan of care. The patient-specific goals include: Total Hip Arthroplasty PT Goals 1. Perform all bed mobility with Min Assist or less to allow safe negotiation of bedroom environment. 2. Transfer from sitting with min assist or less following proper PADMINI precautions to allow for safe negotiation of living environment. 3. Ambulate at least 50 ft with SBA or less using assistive device properly to decrease risk for falls during gait in the home environment. 4. Negotiate stairs with/without rail with min assist or less to allow for safe access into living environment. FREQUENCY: BID Outcome: Completed Date Met: 03/30/12 Physical Therapy Discharge Summary Reason for discharge: All goals and outcomes met, no futher needs identified Discharged from facility Progress towards goals: Goals met Recommendation(s): No further therapy is recommended. Patient met all PT goals. Discharged home with assist of . Plan of Care - Bhargavi Sebastian OT - 03/30/2012 10:29 AM CDT Problem: General Rehab Plan of Care Goal: Occupational Therapy Goals The patient and/or their labor union business representative will achieve their patient-specific goals related to the plan of care. The patient-specific goals include: Goals to be met by 04/03/12. 1. Mod I with toilet transfer, AE prn. 2. Mod I with tub transfer, DME prn. 3. Mod I with total body dressing, AE prn. 4 I with standing at sink for 3 grooming/hyg. Tasks. Frequency: daily Fall precautions OT: pt. Completed tub transfer with SBA into tub and modified independence out of tub with use of shower chair, towel to lift leg, and quad cane. Pt. Plans to have family available to assist. Pt. Verbalizes understanding of hip precautions and issued a LHS to use with bathing at home. Pt. Has AE/DME at home to use to adhere to hip precautions. OT recommends home with assist. Plan of Care - Smita Jang RN - 03/29/2012 7:55 PM CDT Problem: Hip Replacement, Total (Adult) Goal: Prevent/Manage Potential Problems Signs and symptoms of listed problems will be absent or manageable. Outcome: Improving Vital signs stable, cms intact to lower extremities.Pain controlled with oxycodone.Dressing intact to rt hip.Pain controlled with oxycodone.Pt ambulated in [place] with walker and sba of 1.Voiding in [place].Plan of care reviewed with pt. Plan of Care - Cleopatra Torres, PT - 03/29/2012 2:28 PM CDT Problem: General Rehab Plan of Care Goal: Physical Therapy Goals The patient and/or their labor union business representative will achieve their patient-specific goals related to the plan of care. The patient-specific goals include: Total Hip Arthroplasty PT Goals 1. Perform all bed mobility with Min Assist or less to allow safe negotiation of bedroom environment. 2. Transfer from sitting with min assist or less following proper PADMINI precautions to allow for safe negotiation of living environment. 3. Ambulate at least 50 ft with SBA or less using assistive device properly to decrease risk for falls during gait in the home environment. 4. Negotiate stairs with/without rail with min assist or less to allow for safe access into living environment. FREQUENCY: BID Outcome: Therapy, progress toward functional goals as expected PT: Patient meeting goal #1, progressing toward goals 2-4. Continue with ambulation, assess stairs at next visit. Requires occasional cueing to follow PADMINI precautions during transferring, and occ cueing for ambulation sequence. Recommended discharge to home with assist. Plan of Care - Maia Lee RN - 03/29/2012 1:17 PM CDT Problem: IP GENERAL POC-ADULT,OB,BEHAVIORAL FVCPM Goal: Individualization/Patient-Specific Goal (Adult,OB,Behavioral The patient and/or their labor union business representative will achieve their patient-specific goals related to the plan of care. The patient-specific goals include: Past medical history only for HTN. CTS: Discharge planning for return home. Large blood loss in surgery 03/27/12, questioning clotting disorder. Outcome: Improving RN:pt vss, bolus given per md otherwise SL Lungs: are clear, encouraged pt to use IS hourly BS:+ pt is eating and drinking well, adequate output. D/c martinez, voiding CMS:+, Pillow support under operative leg.Dressing is CDI. Minor swelling Pain: controlled with one pain meds before pt. Ice to operative extremity. Activity: Up with A1 and walker, doing well in pt, tolerated wheelchair after pt. Staying one more day for more pt tomorrow Plan of Care - Meena Lemus OT - 03/29/2012 10:38 AM CDT Problem: General Rehab Plan of Care Goal: Occupational Therapy Goals The patient and/or their labor union business representative will achieve their patient-specific goals related to the plan of care. The patient-specific goals include: Goals to be met by 04/03/12. 1. Mod I with toilet transfer, AE prn. 2. Mod I with tub transfer, DME prn. 3. Mod I with total body dressing, AE prn. 4 I with standing at sink for 3 grooming/hyg. Tasks. Frequency: daily Fall precautions Outcome: Therapy, progress toward functional goals as expected OT-Patient is progressing in OT as expected. Anticipate discharge home with assistance from spouse as needed. Will continue with OT for ADl's, functional transfers and DME needs. Plan of Care - Cleopatra Torres, PT - 03/29/2012 10:03 AM CDT Problem: General Rehab Plan of Care Goal: Physical Therapy Goals The patient and/or their labor union business representative will achieve their patient-specific goals related to the plan of care. The patient-specific goals include: Total Hip Arthroplasty PT Goals 1. Perform all bed mobility with Min Assist or less to allow safe negotiation of bedroom environment. 2. Transfer from sitting with min assist or less following proper PADMINI precautions to allow for safe negotiation of living environment. 3. Ambulate at least 50 ft with SBA or less using assistive device properly to decrease risk for falls during gait in the home environment. 4. Negotiate stairs with/without rail with min assist or less to allow for safe access into living environment. FREQUENCY: BID Outcome: Therapy, progress toward functional goals as expected PT session completed. Patient ambulating well with rolling walker, occ cues for sequencing. Patient demo's good muscle activation during supine exercises. Continue with ambulation and stairs assessment. Recommended discharge to home with assist. Plan of Care - Catie Fletcher RN - 03/28/2012 10:57 PM CDT Problem: IP GENERAL POC-ADULT,OB,BEHAVIORAL FVCPM Goal: Individualization/Patient-Specific Goal (Adult,OB,Behavioral The patient and/or their labor union business representative will achieve their patient-specific goals related to the plan of care. The patient-specific goals include: Past medical history only for HTN. CTS: Discharge planning for return home. Large blood loss in surgery 03/27/12, questioning clotting disorder. Outcome: Improving Pt. Was symptomatic with Hgb 8.5 this AM. 2 units transfused with improvement of symptoms and Hgb now 10.9, platelets 95. Pain well controlled Tolerates regular diet +CMS. BP 96/52 Pulse 98 Temp(Src) 100.1 ??F (37.8 ??C) (Oral) Resp 16 Ht 1.829 m (6') Wt 84.823 kg (187 lb) BMI 25.36 kg/m2 SpO2 98% Plan of Care - Cleopatra Torres PT - 03/28/2012 4:31 PM CDT Problem: General Rehab Plan of Care Goal: Physical Therapy Goals The patient and/or their labor union business representative will achieve their patient-specific goals related to the plan of care. The patient-specific goals include: Total Hip Arthroplasty PT Goals 1. Perform all bed mobility with Min Assist or less to allow safe negotiation of bedroom environment. 2. Transfer from sitting with min assist or less following proper PADMINI precautions to allow for safe negotiation of living environment. 3. Ambulate at least 50 ft with SBA or less using assistive device properly to decrease risk for falls during gait in the home environment. 4. Negotiate stairs with/without rail with min assist or less to allow for safe access into living environment. FREQUENCY: BID Outcome: Therapy, progress toward functional goals as expected PT session completed. Patient receiving blood transfusion at time of scheduled PT session, only supine there ex performed this visit. Recommended discharge to home with assist. Plan of Care - Bobo Terry OT - 03/28/2012 3:50 PM CDT Problem: General Rehab Plan of Care Goal: Occupational Therapy Goals The patient and/or their labor union business representative will achieve their patient-specific goals related to the plan of care. The patient-specific goals include: Goals to be met by 04/03/12. 1. Mod I with toilet transfer, AE prn. 2. Mod I with tub transfer, DME prn. 3. Mod I with total body dressing, AE prn. 4 I with standing at sink for 3 grooming/hyg. Tasks. Frequency: daily Fall precautions Outcome: Therapy, progress toward functional goals as expected Evaluation completed and treatment initiated. Recommend discharge to TCU at this time, however will update discharge recommendations as pt makes progress. Pt demonstrated bed mobility with Min A and sit<>stand EOB with CGA, WW. Will continue to see daily. Plan of Care - Maia Lee RN - 03/28/2012 2:53 PM CDT Problem: IP GENERAL POC-ADULT,OB,BEHAVIORAL FVCPM Goal: Individualization/Patient-Specific Goal (Adult,OB,Behavioral The patient and/or their labor union business representative will achieve their patient-specific goals related to the plan of care. The patient-specific goals include: Past medical history only for HTN. CTS: Discharge planning for return home. Large blood loss in surgery 03/27/12, questioning clotting disorder. Outcome: Improving RN: pt vss except for BP dropped the 1st time up with pt, pt passed out came to right away ORTHODONTIC LAB TECHNICIAN canceled and layed down and was fine from then on. Lungs are clear, encouraged pt to use IS hourly. BS+ eating and drinking well. CMS+, dressing is CDI on operative extremity Activity: Stood with A1 and walker in pm with ot did well (after 1st unit), Pain: Taking pain meds before pt, minimal pain. Ice to operative extremity. Output: Adequate Martinez otuput 2 units of blood done for hmg 8.5 Rested in between therapy. Plan of Care - Cleopatra Torres, PT - 03/28/2012 9:42 AM CDT Problem: General Rehab Plan of Care Goal: Physical Therapy Goals The patient and/or their labor union business representative will achieve their patient-specific goals related to the plan of care. The patient-specific goals include: Total Hip Arthroplasty PT Goals 1. Perform all bed mobility with Min Assist or less to allow safe negotiation of bedroom environment. 2. Transfer from sitting with min assist or less following proper PADMINI precautions to allow for safe negotiation of living environment. 3. Ambulate at least 50 ft with SBA or less using assistive device properly to decrease risk for falls during gait in the home environment. 4. Negotiate stairs with/without rail with min assist or less to allow for safe access into living environment. FREQUENCY: BID Outcome: Therapy, progress toward functional goals as expected PT evaluation completed and treatment initiated. Noted patient's low hb and blood pressures. Patienthad no c/o dizziness/lightheadedness with supine to sit, sit to stand or ambulation. C/o pain with increased movement of R hip. Tolerated there ex and transfers supine to sit well with Justin to advance R LE. Sitting up in w/c at end of session, no c/o dizziness or lightheadedness. Recommended dischargeto home with assist. Plan of Care - Mabel Cardenas RN - 03/28/2012 5:59 AM CDT Problem: IP GENERAL POC-ADULT,OB,BEHAVIORAL FVCPM Goal: Individualization/Patient-Specific Goal (Adult,OB,Behavioral The patient and/or their labor union business representative will achieve their patient-specific goals related to the plan of care. The patient-specific goals include: Past medical history only for HTN. Large blood loss in surgery 03/27/12, questioning clotting disorder. Pt very pleasant, able to rest this shift. Hgb drawn early this am, down to 8.5 from 15;BP low 84/48, remaining low with rechecks, provider notified. . Martinez patent with adequate output. BS+, passing flatus. Pt eager for therapy, movement in bed. No c/o pain this shift, did request pain medications (does not want oxycodone) before therapy. CMS intact, dressing CDI. Drain has moderate, red output. Provider Notification - Mabel Cardenas RN - 03/28/2012 5:45 AM CDT [facility] and low blood pressure. Plan of Care - Catie Fletcher RN - 03/27/2012 11:17 PM CDT Problem: IP GENERAL POC-ADULT,OB,BEHAVIORAL FVCPM Goal: Individualization/Patient-Specific Goal (Adult,OB,Behavioral The patient and/or their labor union business representative will achieve their patient-specific goals related to the plan of care. The patient-specific goals include: Past medical history only for HTN. Large blood loss in surgery 03/27/12, questioning clotting disorder. Outcome: Improving Pt. Is A/O, receptive to treatments and education +BS, no flatus, full liquids started. +CMS, R hip is CDI with dressing intact and hemovac drain to gravity. Output was 50mls. Pt. Tolerated dangling at bedside with adequate pain control. BP 118/50 Pulse 97 Temp(Src) 97.8 ??F (36.6 ??C) (Oral) Resp 16 Ht 1.829 m (6') Wt 84.823 kg (187 lb) BMI 25.36 kg/m2 SpO2 100% Provider Notification - Maia Lee RN - 03/27/2012 1:30 PM CDT Called and left message for nareshsabino to ask if he wanted the drain off suction per normal paramters due to EBL drain clamped for now per standing orders. Called back at 1430 follow normal drain parameters Op Note - Mayito Izquierdo MD - 03/27/2012 9:27 AM CDT SURGEON: Mayito Izquierdo MD PROFESSOR OF VISUAL ARTS: MELYSSA Estrella PREOPERATIVE DIAGNOSIS: End-stage degenerative joint disease, right hip. POSTOPERATIVE DIAGNOSIS: End-stage degenerative joint disease, right hip. OPERATIVE PROCEDURE: Right total hip arthroplasty, posterior approach. ANESTHESIA: General. INDICATION FOR OPERATION: Colin Diaz is a 66-year-old gentleman with severe and disabling righthip pain. The pain interferes with activities of daily living. He has failed nonoperative management. He is being brought to the operating room at this time for total hip replacement surgery. OPERATIVE SUMMARY: The patient was brought to the operating room where a general anesthetic was administered. He was positioned then in the left lateral decubitus position with the [facility] hip positioner. The right hip was sterilely prepped and draped with the leg free. A skin incision was made over the trochanteric region. Dissection was carried out posteriorly. The short external rotators were released. The hip capsule was opened, and the hip dislocated posteriorly. Femoral neck osteotomy was performed using the [employer] Accolade hip stem broach as a guide. Attention was directed to the acetabulum. The acetabulum was sequentially reamed to 58 mm. A 58 mm outside diameter trial fit well, and that cup was then selected. This was the Trident PSL cup. It was pounded into place with bone graft behind it. Two anti-rotation screws measuring 20 mm in length were placed through holes in the cup. Attention was redirected to the proximal femur. The femur was sequentially broached up to a size 9 femoralcomponent. The appropriate acetabular liner was placed. Trial reductions were performed. The 9 Accolade hip stem with the 132 neck angle was selected and pounded into the proximal femur. Trial reductions were performed. A -5 femoral neck gave excellent temple of leg length and stability. The wound was thoroughly irrigated with antibiotic irrigation solution. The short external rotators were repaired with #1 Vicryl suture. A medium Hemovac was brought out through a separate stab incision and left deep within the wound. The iliotibial tract was repaired with #1 Vicryl suture, subcutaneous closure with 2-0 Vicryl suture, and then the skin with redd. It should be noted that there was significant blood loss during the case, not from any one source, but constant oozing. This required transfusion. The patient was then returned to recovery after wake-up from general anesthesia. MAYITO IZQUIERDO MD MT: [id number] Name: COLIN DIAZ MRN: [id number] Account: [id number] : 1945 Procedure Date: 03/27/2012 Document: [id number] cc: Tello Torres MD Pharmacy-Admission Medication History - Alice Bella RPH - 03/23/2012 6:52 PM CDT Med rec completed by pre adm RN documented in this encounter Plan of Treatment Not on filedocumented as of this encounter Procedures Procedure Name Priority Date/Time Associated Diagnosis Comme nts CBC WITH PLATELETS Routine 03/30/2012 5:50 AM Res ults for this CDT procedure are i n the results section. GLUCOSE Routine 03/29/2012 5:52 AM Results f or this CDT procedure are i n the results section. CBC WITH PLATELETS Routine 03/29/2012 5:52 AM Res ults for this CDT procedure are i n the results section. PLATELET COUNT Timed 03/28/2012 5:10 PM Results for this CDT procedure are i n the results section. HEMOGLOBIN Timed 03/28/2012 5:10 PM Results f or this CDT procedure are i n the results section. INR STAT 03/28/2012 10:05 Results for this AM CDT procedure are i n the results section. BASIC METABOLIC Routine 03/28/2012 5:32 AM Result s for this PANEL CDT procedure are i n the results section. CBC WITH PLATELETS Routine 03/28/2012 5:32 AM Res ults for this CDT procedure are i n the results section. HEMOGLOBIN Routine 03/28/2012 5:30 AM Results f or this CDT procedure are i n the results section. GLUCOSE Routine 03/28/2012 5:30 AM Results f or this CDT procedure are i n the results section. PREPARE PLATELETS Routine 03/27/2012 9:58 PM Resu lts for this ORDER UNIT CDT procedure are i n the results section. XR PELVIS AND HIP Routine 03/27/2012 9:30 AM Resu lts for this RIGHT 1 VIEW CDT procedure are i n the results section. BLOOD COMPONENT Routine 03/27/2012 8:46 AM Result s for this CDT procedure are i n the results section. PREPARE PLATELETS Routine 03/27/2012 8:46 AM Resu lts for this ORDER UNIT CDT procedure are i n the results section. BLOOD COMPONENT Routine 03/27/2012 8:40 AM Result s for this CDT procedure are i n the results section. BLOOD COMPONENT Routine 03/27/2012 8:40 AM Result s for this CDT procedure are i n the results section. PREPARE PLASMA Routine 03/27/2012 8:40 AM Results for this (UNIT) CDT procedure are i n the results section. ARTHROPLASTY, HIP, 03/27/2012 7:11 AM Degenerative Cris nt TOTAL CDT Disease Special Needs 6' / 186 lb - stated documented in this encounter Results (ABNORMAL) CBC with platelets (03/30/2012 5:50 AM CDT) Analysis Performed At Patho logist Time Signature WBC 8.3 4.0 - 11.0 [place] 10e9[facility] RBC Count 2.96 (L) 4.4 - 5.9 [place] 10e12L [facility] Hemoglobin 9.6 (L) 13.3 - [place] 17.7 g/dL [facility] Hematocrit 28.1 (L) 40.0 - [place] 53.0 % [facility] MCV 95 78 - 100 [facility] MCH 32.4 26.5 - [place] 33.0 [facility] MCHC 34.2 31.5 - [place] 36.5 g/dL [facility] RDW 14.3 10.0 - [place] 15.0 [facility] Platelet Count 80 (L) 150 - 450 [place] [id number] [place] [address] LAB Specimen Anatomical Collection Method Collection Time Receive d Time (Source) Location / / Volume Laterality Blood specimen 03/30/2012 5:50 AM 012 6:05 (specimen) CDT AM CDT Sveta Marino MD LAB - BLOOD ORDERABLES Performing Organization Address City/State/ZIP Code Phon e Number [place] [address] [place], [place] [address] [facility] LAB (ABNORMAL) CBC with platelets (03/29/2012 5:52 AM CDT) Analysis Performed At Patho logist Time Signature WBC 9.2 4.0 - 11.0 [place] [facility] RBC Count 3.06 (L) 4.4 - 5.9 [place] 10e12L [facility] Hemoglobin 10.0 (L) 13.3 - [place] 17.7 g/dL [facility] Hematocrit 29.3 (L) 40.0 - [place] 53.0 % [facility] MCV 96 78 - 100 [facility] MCH 32.7 26.5 - [place] 33.0 pg [facility] MCHC 34.1 31.5 - [place] 36.5 g/dL [facility] RDW 15.0 10.0 - [place] 15.0 [facility] Platelet Count 82 (L) 150 - 450 [place] [id number] Specimen Anatomical Collection Method Collection Time Receive d Time (Source) Location / / Volume Laterality Blood specimen 03/29/2012 5:52 AM 012 6:20 (specimen) CDT AM CDT Harika Evans PA-C LAB - BLOOD ORDERABLES Performing Organization Address City/[facility]/ZIP Code Phon e Number [facility] [address] [place], [place] [address] [facility] LAB (ABNORMAL) Glucose (03/29/2012 5:52 AM CDT) athologist Signature Glucose 101 (H) 60 - 99 [place] mg/dL [facility] Specimen Anatomical Collection Method Collection Time Receive d Time (Source) Location / / Volume Laterality Blood specimen 03/29/2012 5:52 AM 012 6:20 (specimen) CDT AM CDT Mayito Izquierdo MD LAB - BLOOD ORDERABLES Performing Organization Address [facility]/ZIP [facility] Phon e Number [place] [address] [place], [place] [address] [facility] LAB (ABNORMAL) Platelet count (03/28/2012 5:10 PM CDT) athologist Signature Platelet Count 95 (L) 150 - 450 [place] 10e9/L [facility] Specimen Anatomical Collection Method Collection Time Receive d Time (Source) Location / / Volume Laterality Blood specimen 03/28/2012 5:10 PM 012 5:29 (specimen) CDT PM CDT Harika Evans PA-C LAB - BLOOD ORDERABLES Performing Organization Address City/[facility]/ZIP [facility] Phon e Number [facility] [address] [place], [place] [address] [facility] LAB (ABNORMAL) Hemoglobin (03/28/2012 5:10 PM CDT) athologist Signature Hemoglobin 10.9 (L) 13.3 - 17.7 [place] g/dL [facility] Specimen Anatomical Collection Method Collection Time Receive d Time (Source) Location / / Volume Laterality Blood specimen 03/28/2012 5:10 PM 012 5:29 (specimen) CDT PM CDT Harika Evans PA-C LAB - BLOOD ORDERABLES Performing Organization Address City/[facility] Code Phon e Titus [place] [address] [place], [place] [phone] [place] [address] LAB (ABNORMAL) INR (03/28/2012 10:05 AM CDT) P athologist Signature INR 1.20 (H) 0.86 - 1.14 [facility] LAB Specimen Anatomical Collection Method Collection Time Receive d Time (Source) Location / / Volume Laterality Blood specimen 03/28/2012 10:05 2 (specimen) AM CDT 10:11 AM CDT Harika Bartonu PA-C LAB - BLOOD ORDERABLES Performing Organization Address [facility] Phon neptali Qureshi [place] [address] [place], [place] [address] [phone] [place] [address] LAB (ABNORMAL) CBC with platelets (03/28/2012 5:32 AM CDT) Analysis Performed At Patho logist Time Signature WBC 10.5 4.0 - 11.0 [place] 10[place]9/L [facility] RBC Count 2.56 (L) 4.4 - 5.9 [place] 10e12/L [facility] Hemoglobin 8.5 (L) 13.3 - [place] 17.7 g/dL [facility] Hematocrit 24.6 (L) 40.0 - [place] 53.0 % [facility] MCV 96 78 - 100 [facility] MCH 33.2 (H) 26.5 - [facility] 33.0 pg [facility] MCHC 34.6 31.5 - [place] 36.5 g/dL [facility] RDW 14.1 10.0 - [place] 15.0 % [facility] Platelet Count 98 (L) 150 - 450 [place] 10e9/L [facility] Specimen Anatomical Collection Method Collection Time Receive d Time (Source) Location / / Volume Laterality 03/28/2012 5:32 AM 2 9:35 CDT AM CDT Mayito Izquierdo MD LAB - BLOOD ORDERABLES Performing Organization Address [facility] Phon neptali [place] [facility] [address] [place], [place] [address] [facility] LAB (ABNORMAL) Basic metabolic panel (03/28/2012 5:32 AM CDT) athologist Signature Sodium 137 133 - 144 [place] mmol/L [facility] Potassium 4.2 3.4 - 5.3 [place] mmol/L [facility] Chloride 107 94 - 109 [place] mmol/L [facility] Carbon Dioxide 24 20 - 32 [place] mmol/L [facility] Anion Gap 6 6 - 17 [place] mmol/L [facility] Glucose 117 (H) 60 - 99 [place] mg/dL [facility] Urea Nitrogen 6 (L) 7 - 30 [place] mg/dL [facility] Creatinine 0.68 0.66 - [facility] 1.25 mg/dL [facility] GFR Estimate >90 >60 [place] mL/min/1.[address] LAB GFR Estimate If >90 >60 [place] Black mL/min/[address] [place] [address] LAB Calcium 7.4 (L) 8.5 - 10.4 [place] mg/dL [facility] Specimen Anatomical Collection Method Collection Time Receive d Time (Source) Location / / Volume Laterality 03/28/2012 5:32 AM 2 9:35 CDT AM CDT Mayito Izquierdo MD LAB - BLOOD ORDERABLES Performing Organization Address City/[facility]/ZIP Code Phon neptali [place] [facility] [address] [place], [place] [address] [facility] LAB (ABNORMAL) Hemoglobin (03/28/2012 5:30 AM CDT) athologist Signature Hemoglobin 8.5 (L) 13.3 - 17.7 [facility] g/dL [facility] Comment: Duplicate request Charge credited Specimen Anatomical Collection Method Collection Time Receive d Time (Source) Location / / Volume Laterality Blood specimen 03/28/2012 5:30 AM 012 5:32 (specimen) CDT AM CDT Mayito Izquierdo MD LAB - BLOOD ORDERABLES Performing Organization Address City/[facility]/ZIP [facility] Phon e Number M [facility] [address] [place], [place] [address] [facility] LAB (ABNORMAL) Glucose (03/28/2012 5:30 AM CDT) P athologist Signature Glucose 117 (H) 60 - 99 [place] mg/dL [facility] Comment: Duplicate request Charge credited Specimen Anatomical Collection Method Collection Time Receive d Time (Source) Location / / Volume Laterality Blood specimen 03/28/2012 5:30 AM 012 5:32 (specimen) CDT AM CDT Mayito Izquierdo MD LAB - BLOOD ORDERABLES Performing Organization Address City/[facility]/ZIP [facility] Phon e Number M [facility] [address] [place], [place] [address] [facility] Platelets prepare order unit (03/27/2012 9:58 PM CDT) [facility] gist Method Time Signature Ordered PLT Pheresis [place] Component Type [facility] Units Ordered 1 [facility] Blood Bank Test [place] Comment canceled by [facility] LAB Specimen Anatomical Collection Method Collection Time Receive d Time (Source) Location / / Volume Laterality 03/27/2012 9:58 PM 2 CDT 10:03 PM CDT Mayito Izquierdo MD BLOOD BANK PRODUCT ORDERABLE S Performing Organization Address City/[facility]/ZIP [facility] Phon e Number [facility] [address] [place], [place] [address] [facility] LAB X-ray Pelvis w/ unilateral hip right (03/27/2012 9:30 AM CDT) Anatomical Region Laterality Modality Abdomen/Pelvis Right Other Specimen (Source) Anatomical Collection Method Collection Time Re ceived Time Location / / Volume Laterality 03/27/2012 9:30 AM CDT Impressions 03/27/2012 11:19 AM CDT PELVIS WITH UNILATERAL HIP RIGHT Mar 27, 2012 9:30:00 AM HISTORY: ??Post-op Right Hip Arthroplast y, COMPARISON: None. IMPRESSION: Status post right total hip arthroplasty with expected postsurgical changes. Hardware is intact . Alignment is anatomic. There is a surgical drain within the right hip joint. Mayito Izquierdo MD IMG DIAGNOSTIC IMAGING ORDER BERNIE Blood component (03/27/2012 8:46 AM CDT) [facility] Total Immersion Method Time Signature Unit Number [id number] [facility] LAB Blood PlateletPher [place] Component Type esis,LeukoRe [facility] LAB (Part 2) Status of Unit Released to [facility] LAB Specimen Anatomical Collection Method Collection Time Receive d Time (Source) Location / / Volume Laterality 03/27/2012 8:46 AM 2 8:51 CDT AM CDT Mayito Izquierdo MD LABORATORY Performing Organization Address City/[facility] Phon e Number M [facility] [address] [place], [place] [address] [phone] [place] [address] LAB Platelets prepare order unit (03/27/2012 8:46 AM CDT) [facility] Total Immersion Method Time Signature Ordered PLT Pheresis [facility] LAB Units Ordered 1 [facility] LAB Specimen Anatomical Collection Method Collection Time Receive d Time (Source) Location / / Volume Laterality 03/27/2012 8:46 AM 2 8:51 CDT AM CDT Mayito Izquierdo MD BLOOD BANK PRODUCT ORDERABLE S Performing Organization Address City/[facility] Phon e Number M [facility] [address] [place], [place] [address] [address] [phone] [place] [address] LAB Blood component (03/27/2012 8:40 AM CDT) [facility] Total Immersion Method Time Signature Unit Number [id number] [facility] LAB Blood Plasma, [place] Component Type Thawed [facility] Status of Unit Released to [facility] LAB Specimen Anatomical Collection Method Collection Time Receive d Time (Source) Location / / Volume Laterality 03/27/2012 8:40 AM 2 8:45 CDT AM CDT Mayito Izquierdo MD LABORATORY Performing Organization Address City/[facility]/ZIP Code Phon e Number M [facility] [address] [place], [place] [address] [facility] LAB Blood component (03/27/2012 8:40 AM CDT) Patholo gist Method Time Signature Unit Number [id number] [facility] LAB Blood Plasma, [facility] LAB Status of Unit [facility] LAB Specimen Anatomical Collection Method Collection Time Receive d Time (Source) Location / / Volume Laterality 03/27/2012 8:40 AM 2 8:45 CDT AM CDT Mayito Izquierdo MD LABORATORY Performing Organization Address City/[facility] Phon e Number M [facility] [address] [place], [place] [address] [facility] Plasma prepare order unit (03/27/2012 8:40 AM CDT) P athologist Signature Ordered Plasma [facility] LAB Units Ordered 2 [facility] LAB Specimen Anatomical Collection Method Collection Time Receive d Time (Source) Location / / Volume Laterality 03/27/2012 8:40 AM 2 8:45 CDT AM CDT Mayito Izquierdo MD BLOOD BANK PRODUCT ORDERABLE S Performing Organization Address City/[facility] Phon e Number M [facility] [address] [place], [place] [address] [facility] documented in this encounter Visit Diagnoses Diagnosis Status post THR (total hip replacement) Hip joint replacement by other means Advanced directives, counseling/discussi on Other specified counseling documented in this encounter Administered Medications Inactive Administered Medications - up to 3 most recent administrations Medication Order MAR Action Action Date Dose Rate Site 0.9 % sodium chloride IV New Bag 03/29/2012 11:26 AM CDT 500 mLs 100 mL/hr solution at 100 mL/hr, Intravenous, CONTINUOUS, Please give 500 mL total and then saline lock. Thanks, Starting on 8/15/12 at 0915, Until Tue03/29/12 at 1414 atorvastatin (LIPITOR) tablet 10 mg Given 03/29/2012 8:21 PM CDT 10 mg 10 mg, Oral, AT BEDTIME, First dose on Tue03/27/12 at 2200 Given 03/28/2012 9:14 PM CDT 10 mg Given 03/27/2012 9:44 PM CDT 10 mg ceFAZolin (ANCEF) IVPB 2 g New Bag 03/27/2012 9:45 PM CDT 2 g 200 mL/hr Routine, 2 g, Intravenous, EVERY 8 HOURS, First dose on Tue03/27/12 at 1400, For 2 doses, First post-op dose due 8 hours after intra-op dose, see eMAR. , Post-procedure New Bag 03/27/2012 3:16 PM CDT 2 g 200 mL/hr celecoxib (celeBREX) capsule 200 mg Given 03/30/2012 8:18 AM CDT 200 mg 200 mg, Oral, 2 TIMES DAILY, First dose on Tue03/28/12 at 0900, Do not give until ketorolac dosing complete or if ibuprofen ordered. , Post-procedure Given 03/29/2012 8:21 PM CDT 200 mg Given 03/29/2012 9:05 AM CDT 200 mg celecoxib (celeBREX) capsule 400 mg Given 03/27/2012 6:09 AM CDT 400 mg 400 mg, Oral, ONCE, On Tue03/27/12 at 0545, For 1 dose, Pre-procedure dextrose 5 % and 0.45 % NaCl + Rate/Dose Verify 03/28/2012 8:00 AM CDT 125 mL/hr KCl 20 mEq/L at 125 mL/hr, Intravenous, CONTINUOUS, Change to saline lock when PO well tolerated., Post-procedure, Starting on Tue03/27/12 at 1315, Until Tue03/28/12 at 2054 Rate/Dose Verify 03/28/2012 6:26 AM CDT 125 mL/hr New Bag 03/28/2012 12:14 AM CDT 125 mL/hr docusate sodium (COLACE) capsule 100 mg Given 03/30/2012 9:12 AM CDT 100 mg 100 mg, Oral, 2 TIMES DAILY, First dose on Tue03/27/12 at 2100, To prevent constipation. Hold for loose stools., Post-procedure Given 03/29/2012 8:21 PM CDT 100 mg Given 03/29/2012 9:05 AM CDT 100 mg fentaNYL (SUBLIMAZE) injection 25-50 mcg Given 03/27/2012 9:29 AM CDT 50 mcg 25-50 mcg, Intravenous, EVERY 2 MIN PRN, other, acute pain, Starting on Tue03/27/12 at 0908, MAX cumulative dose = 250 mcg. Use Fentanyl initially, as a short acting agent for acute pain control. If insufficient, or a longer acting agent is needed, begin Morphine or Hydromorphone if ordered., PACU Given 03/27/2012 9:21 AM CDT 50 mcg HYDROmorphone (DILAUDID) injection 0.2-0 .4 mg Given 03/28/2012 6:30 AM CDT 0.2 mg 0.2-0.4 mg, Intravenous, EVERY 2 HOURS PRN, severe pain, or patient unable to take PO, Starting on Tue03/27/12 at 1300, Hold while on ACUTE CARE OCCUPATIONAL THERAPIST., Post-procedure Given 03/27/2012 2:07 PM CDT 0.2 mg lactated ringers infusion New Bag 03/27/2012 9:27 AM CDT 1,000 mLs 100 mL/hr at 75-100 mL/hr, Intravenous, CONTINUOUS, UNLESS otherwise indicated., Starting on Tue03/27/12 at 0545, Until Tue03/28/12 at 0922 lisinopril (PRINIVIL,ZESTRIL) tablet 10 mg Given 03/27/2012 5:22 PM CDT 5 mg 10 mg, Oral, DAILY, First dose on Tue03/27/12 at 1600 magnesium hydroxide (MILK OF MAGNESIA) Given 03/30/2012 1:30 PM CDT 30 mLs suspension 30 mL 30 mL, Oral, DAILY PRN, constipation, Starting on Savi 03/30/12 at 0958, Shake well. niacin (NIASPAN) CR tablet 500 mg Given 03/29/2012 8:21 PM CDT 500 mg 500 mg, Oral, AT BEDTIME, First dose (after last reorder) on Tue03/28/12 at 2200 oxyCODONE (ROXICODONE) immediate release tablet Given 03/30/2012 9:12 AM CDT 5 mg 5-10 mg 5-10 mg, Oral, EVERY 3 HOURS PRN, moderate to severe pain, Starting on Tue03/27/12 at 1300, Hold while on ACUTE CARE OCCUPATIONAL THERAPIST or with regular IV opioid dosing., Post-procedure Given 03/29/2012 10:04 PM CDT 5 mg Given 03/29/2012 7:26 PM CDT 5 mg rivaroxaban ANTICOAGULANT (XARELTO) tablet 10 Given 8:19 AM CDT 10 mg mg 10 mg, Oral, DAILY, First dose on Tue03/28/12 at 0800, Not recommended if CrCl < 30 mL/min, Post-procedure Given 03/29/2012 9:05 AM CDT 10 mg Given 03/28/2012 8:43 AM CDT 10 mg sodium chloride (PF) 0.9% PF flush 250 m L Given 03/27/2012 9:55 AM CDT 250 mLs 250 mL, Intravenous, ONCE, On Tue03/27/12 at 1000, For 1 dose, PACU sodium chloride (PF) 0.9% PF flush 3 mL Given 03/30/2012 6:20 AM CDT 3 mLs 3 mL, Intravenous, EVERY 8 HOURS, First dose on Tue03/27/12 at 1315, to lock peripheral IV dormant line. Also Ordered Q1H PRN, Post-procedure Given 03/29/2012 8:20 PM CDT 3 mLs Given 03/29/2012 5:00 AM CDT 3 mLs sodium chloride 0.9 % BOLUS 500 mL New Bag 03/28/2012 6:30 AM CDT 500 mLs 500 mL/hr Intravenous, 500 mL, ONCE, at 500 mL/hr, Administer over 1 Hours, On Tue03/28/12 at 0615, For 1 dose sodium chloride 0.9 % BOLUS 500 mL New Bag 03/28/2012 9:25 AM CDT mL mL/hr Intravenous, 500 mL, ONCE, On Tue03/28/12 at 0930, For 1 dose documented in this encounter Active and Recently Administered Medications Times are shown in CDT. Scheduled Medication Order 03/28/2012 03/29/2012 03/30/2012 atorvastatin (LIPITOR) tablet 10 mg (CANCELED) 2113 (G iven - Provider: Catie Fletcher RN) 2020 (Given - Provider: Smita Jnag RN - Comment: pt requested med now)2199 (Canceled Entry - Provider: Smiat Jang RN) 10 mg, Oral, AT BEDTIME, First dose on Tue03/27/12 at 2200 celecoxib (celeBREX) capsule 200 mg (CANCELED) 0843 (G iven - Provider: Harriett Weaver LPN)2113 (Given - Provider: Catie Fletcher RN) 904 (Given - Provider: Maia Lee RN)2020 (Given - Provider: Smita Jang RN) 0818 (Given - Provider: Dayna Tinoco LPN) 200 mg, Oral, 2 TIMES DAILY, First dose on Tue03/28/12 at 0900, Do not give until ketorolac dosing complete or if ibuprofen ordered. , Post-procedure docusate sodium (COLACE) capsule 100 mg (CANCELED) 084 3 (Given - Provider: Harriett Weaver LPN)2240 (Given - Provider: Catie Fletcher RN - Comment: per pt. request) 904 (Given - Provider: Maia Lee RN)2020 (Given - Provider: Smita Jang RN) 0912 (Given - Provider: Dayna brown LPN) 100 mg, Oral, 2 TIMES DAILY, First dose on Tue03/27/12 at 2100, To prevent constipation. Hold for loose stools., Post-procedure niacin (NIASPAN) CR tablet 500 mg (CANCELED) 2244 (Not Given - Provider: Catie Fletcher RN - Reason: Patient/family refused) 2020 (Given - Provider: Smita Jang RN)2199 (Canceled Entry - Provider: Smita Jang RN) 500 mg, Oral, AT BEDTIME, First dose on Tue03/28/12 at 2200 rivaroxaban ANTICOAGULANT (XARELTO) tablet 10 mg 0843 (Given - Provider: Harriett Weaver LPN) 09 (Given - Provider: Maia Lee RN) 0819 (Gi mel - Provider: Dayna Tinoco LPN) 10 mg, Oral, DAILY, First dose on 28/07 at 0800, Not recommended if CrCl < 30 mL/min, Post-procedure sodium chloride (PF) 0.9% PF flush 3 mL (CANCELED) 043 7 (Given - Provider: Mabel Cardenas RN)1315 (Canceled Entry - Provider: Orders Generic Provider)1724 (Given - Provider: Catie Fletcher, CED)2116 (Given - Provider: Catie Fletcher, CED) 0500 (Given - Provider: Hiro brown RN)1315 (Canceled Entry - Provider: Orders Generic Provider)2020 (Given - Provider: Smita Jang RN) 0620 (Given - Provider: Wanda Casiano LPN)1315 (Canceled Entry - Provider: Orders Generic Provider) 3 mL, Intravenous, EVERY 8 HOURS, First dose on Tue03/27/12 at 1315, to lock peripheral IV dormant line. Also Ordered Q1H PRN, Post-procedure sodium chloride 0.9 % BOLUS 500 mL (COMPLETED) 0630 (N ew Bag - Provider: Mabel Cardenas RN) Intravenous, 500 mL, ONCE, at 500 mL/hr, Administer over 1 Hours, On Tue03/28/12 at 0615, For 1 dose sodium chloride 0.9 % BOLUS 500 mL (COMPLETED) 0925 (N ew Bag - Provider: Maia Lee RN) Intravenous, 500 mL, ONCE, On Tue03/28/12 at 0930, For 1 dose Continuous Medication Order 03/28/2012 03/29/2012 03/30/2012 0.9 % sodium chloride IV solution () 1126 (New Bag - Provider: Maia Lee RN - Comment: order states just bolus) 1,000 mL, Intravenous, at 100 mL/hr, CON TINUOUS, Starting Tue03/29/12 at 0915, For 5 hours, Please give 500 mL total and then saline lock. Thanks dextrose 5 % and 0.45 % NaCl + KCl 20 mEq/L (CANCELED) 0014 (New Bag - Provider: Mabel Cardenas RN)0626 (Rate/Dose Verify - Provider: Mabel Cardenas RN)0800 (Rate/Dose Verify - Provider: Maia Lee RN)1100 (Stopped - Provider: Maia Lee RN - Comment: blood) Intravenous, at 125 mL/hr, CONTINUOUS, S tarting 03/27/12 at 1315, Change to saline lock when PO well tolerated., Post-procedure PRN Medication Order 03/28/2012 03/29/2012 03/30/2012 HYDROmorphone (DILAUDID) injection 0.2-0.4 mg (CANCELE D) 0630 (Given - Provider: Mabel Cardenas RN) 0.2-0.4 mg, Intravenous, EVERY 2 HOURS P RN, severe pain, or patient unable to take PO, Starting Tue03/27/12 at 1300, Hold while on ACUTE CARE OCCUPATIONAL THERAPIST., Post-procedure magnesium hydroxide (MILK OF MAGNESIA) suspension 30 mL (CANCELE D) 1330 (Given - Provider: Maia Lee RN - Comment: gave to pt didnt scan before leaving) 30 mL, Oral, DAILY PRN, constipation, Starting Savi 03/15 01/24 at 0958, Shake well. oxyCODONE (ROXICODONE) immediate release tablet 5-10 m g 1112 (Given - Provider: Maia Lee RN)1721 (Given - Provider: Catie Fletcher RN)2241 (Given - Provider: Catie Fletcher RN) 0905 (Given - Provider: Maia Lee RN)1306 (Given - Provider: Maia Lee RN)1926 (Given - Provider: Smita Jang, CED)2204 (Given - Provider: Smita Jang RN) 0912 (Given - Provider: Dayna Tinoco LPN) 5-10 mg, Oral, EVERY 3 HOURS PRN, modera te to severe pain, Starting Tue03/27/12 at 1300, Hold while on ACUTE CARE OCCUPATIONAL THERAPIST or with regular IV opioid dosing., Post-procedure documented in this encounter Care Teams Medical Instrument Technician Relationship Specialty Start Date End Date Tello Torres MD PCP - General Family Practice 03/06/12 [facility] [address] [place] [address] documented as of this encounter
--- OUTSIDE RECORDS SUMMARY | 2022-05-14 09:06 | XMS_ITS | Encounter Summary ---
:1945 Author Organization [place] Address [address] [place] [id number] Care Team Providers Name Role Phone Tello Torres MD Primary Care Provider Reason for Visit Auth/Cert - Closed Specialty Diagnoses / Procedures Referred By Contact Refer red To Contact Surgery Diagnoses Degenerative Joint Disease Rh Periop Services Procedures ARTHROPLASTY HIP [address] [place], [place] [address] Phone: Fax: Referral ID Status Reason Start Date Expiration Date Visits Requ ested Visits Authorized [id number] Closed 1 1 Encounter Details Date Type Department Care Team Description 03/27/[address] [facility] Jn Izquierdo, Right Total Hip PeriOp Services [address] [place] [address] [facility]ANT[facility] [phone] [place], [place] [address] (Wo rk) Surgery Details Date/Time Status Location OR Service Patient Case Case Traum a Class Class Type Case? 03/27/12 7:30 Posted RH OR OR 04 Orthopedics Surgery AM Admit Panel 1 Procedure LRB Anes Op Region Wound Class Commen ts Right Total Hip Right General Hip I-Clean Right Tot al Hip Surgeon Surgeon Role Service Panel Mayito Izquierdo MD Primary Orthopedics 1 Julio Meraz PA Assisting Landfill Gas Technician Authorization 1 Special Needs 6' / 186 lb - stated documented in this encounter Social History Tobacco Use Types Packs/Day Years Used Date Former Smoker Quit: 08/03/19 87 Alcohol Use Standard Drinks/Week Comments Yes [...] documented in this encounter Discharge Instructions Discharge InstructionsCrintreyes-Eleanor Tilley MD - 03/30/2012 10:39 AM CDT [...] up apt. 10-14 days,call to make apt. [phone] Izquierdo Follow up with your [...] Izquierdo MD - 03/30/2012 1:42 PM CDT [facility] Orthopedic Post-Op Progress Note Assessment and Plan: [...] Raymundo MD - 03/30/2012 10:40 AM CDT [facility] Hospitalist Progress Note Admission day 03/27/2012 Assessment [...] phenol-menthol (CEPASTAT) lozenge 1-2 lozenge ??? DISCONTINUE GRANTS ASSISTANT by end of POD1 ??? HYDROmorphone (DILAUDID) [...] Izquierdo MD - 03/29/2012 10:55 AM CDT [facility] Orthopedic Post-Op Progress Note Assessment and Plan: [...] Marino MD - 03/29/2012 9:12 AM CDT [facility] Hospitalist Progress Note Assessment and Plan: Addendum: [...] OT - 03/28/2012 3:38 PM CDT 03/28/12 [id number] Living Environment [R] Lives With spouse Living [...] Mobility Skill: Scooting/Bridging, Rehab Eval Level of [place]: Scooting/Bridging minimum assist (75% patients effort) Physical Assist/Nonphysical Assist: Scooting/Bridging 1 person assist Bed Mobility Skill: Sit to Supine Level of [place]: Sit/Supine minimum assist (75% patients effort) Physical Assist/Nonphysical Assist: Sit/Supine verbal cues;supervision;1 person assist Assistive Device: Sit/Supine overhead trapeze Bed Mobility Skill: Supine to Sit Level of [place]: Supine/Sit minimum assist (75% patients effort) Physical [...] Pt lives with in their home in [place], stairs to enter and within home. Pt has been independent with ambulation and ADLs prior to his surgery. A: Based on progress thus far anticipate pt's return home on discharge with assist of as needed. PT/OT to assess for and issue needed DME for ambulation and ADLs adjustment. P: No SW needs identified at this time, available until discharge should needs arise. Mayito Izquierdo MD - 03/28/2012 10:18 AM CDT [facility] Orthopedic Post-Op Progress Note Assessment and Plan: [...] of Advance Healthcare Directive Reviewed and valid [facility] Progress Note [facility] Advance Directive Advance Directive found on paper chart, reviewed and validated. AD has not yet been scanned into patient's electronic chart. documented in this encounter H&P Notes Abstract, Provider - 03/24/2012 10:43 AM CDT Abstract, Provider - 03/17/2012 11:06 AM CDT documented in [...] mg daily, which he stopped on the 5th. 5. Multivitamins daily. ALLERGIES: No known drug [...] HOLLINS MT: MARÍA ELENA#[id number] Name: COLIN DIAZ MRN: [id number] Account: [id number] : 1945 Consult Date: 03/28/2012 Document: [id number] cc: Tello Torres MD documented in this encounter OR Notes OR Anesthesia - Schaffhausen, Mayito, MD - 03/31/2012 9:39 PM CDT documented in this encounter Miscellaneous Notes Plan of Care - Bhargavi Sebastian OT - 03/30/2012 4:48 PM CDT Problem: General Rehab Plan of Care Goal: Occupational Therapy Goals The patient and/or their procurement representative will achieve their patient-specific goals related [...] Individualization/Patient-Specific Goal (Adult,OB,Behavioral The patient and/or their procurement representative will achieve their patient-specific goals related [...] Physical Therapy Goals The patient and/or their procurement representative will achieve their patient-specific goals related [...] Occupational Therapy Goals The patient and/or their procurement representative will achieve their patient-specific goals related [...] Physical Therapy Goals The patient and/or their procurement representative will achieve their patient-specific goals related [...] Individualization/Patient-Specific Goal (Adult,OB,Behavioral The patient and/or their procurement representative will achieve their patient-specific goals related [...] Occupational Therapy Goals The patient and/or their procurement representative will achieve their patient-specific goals related [...] Physical Therapy Goals The patient and/or their procurement representative will achieve their patient-specific goals related [...] Individualization/Patient-Specific Goal (Adult,OB,Behavioral The patient and/or their procurement representative will achieve their patient-specific goals related [...] SpO2 98% Plan of Care - Cleopatra Torres, PT - 03/28/2012 4:31 PM CDT Problem: General Rehab Plan of Care Goal: Physical Therapy Goals The patient and/or their procurement representative will achieve their patient-specific goals related [...] Occupational Therapy Goals The patient and/or their procurement representative will achieve their patient-specific goals related [...] Individualization/Patient-Specific Goal (Adult,OB,Behavioral The patient and/or their procurement representative will achieve their patient-specific goals related to the plan of care. The patient-specific goals include: Past medical history only for HTN. CTS: Discharge planning for return home. Large blood loss in surgery 03/27/12, questioning clotting disorder. Outcome: Improving RN: pt vss except for BP dropped the 1st time up with pt, pt passed out came to right away CLINICAL RESEARCH NURSE canceled and layed down and was fine [...] Physical Therapy Goals The patient and/or their procurement representative will achieve their patient-specific goals related [...] with assist. Plan of Care - Mabel Cardenas, CED - 03/28/2012 5:59 AM CDT Problem: IP GENERAL POC-ADULT,OB,BEHAVIORAL FVCPM Goal: Individualization/Patient-Specific Goal (Adult,OB,Behavioral The patient and/or their procurement representative will achieve their patient-specific goals related [...] 5:45 AM CDT Called answering [facility] concerning drop in Hgb and low blood pressure. Plan of Care - Catie Fletcher RN - 03/27/2012 11:17 PM CDT Problem: IP GENERAL POC-ADULT,OB,BEHAVIORAL FVCPM Goal: Individualization/Patient-Specific Goal (Adult,OB,Behavioral The patient and/or their procurement representative will achieve their patient-specific goals related [...] PM CDT Called and left message for tunde to ask if he wanted the drain off suction per normal paramters due to EBL drain clamped for now per standing orders. Called back at 1430 follow normal drain parameters Op Note - Mayito Izquierdo MD - 03/27/2012 9:27 AM CDT SURGEON: Mayito Izquierdo MD CROP PICKER: MELYSSA Estrella PREOPERATIVE DIAGNOSIS: End-stage degenerative joint [...] the left lateral decubitus position with the Trotter hip positioner. The right hip was sterilely [...] performed. A -5 femoral neck gave excellent anabaptist of leg length and stability. The wound [...] EM#[id number] Name: COLIN DIAZ MRN: [id number] Account: [id number] : 1945 Procedure Date: 03/27/2012 Document: [id number] cc: Tello Torres MD Pharmacy-Admission Medication History - Alice Bella [facility] - 03/23/2012 6:52 PM CDT Med rec [...] (03/30/2012 5:50 AM CDT) [facility] Time Signature WBC 8.3 4.0 - 11.0 [place] 10e9/L [facility] RBC Count 2.96 (L) 4.4 - 5.9 [place] 10e12/L [facility] Hemoglobin 9.6 (L) 13.3 - [facility] 17.7 g/dL [facility] Hematocrit 28.1 (L) 40.0 - [place] 53.0 % [facility] MCV 95 78 - 100 [facility] MCH 32.4 26.5 - [facility] 33.0 pg [facility] MCHC 34.2 31.5 - [place] 36.5 g/dL [facility] RDW 14.3 10.0 - [place] 15.0 % [facility] Platelet Count 80 (L) 150 - 450 [facility] 10e9/[facility] Specimen Anatomical Collection Method Collection Time Receive d Time (Source) Location / / Volume Laterality Blood specimen 03/30/2012 5:50 AM 012 6:05 (specimen) CDT AM CDT Sveta Marino MD LAB - BLOOD ORDERABLES Performing Organization Address City/State/ZIP Code Phon e Number [place] [address] [place], [place] [address] [facility] (ABNORMAL) CBC with platelets (03/29/2012 5:52 AM CDT) Analysis [facility] Time Signature WBC 9.2 4.0 - 11.0 [place] 10e9L [facility] RBC Count 3.06 (L) 4.4 - 5.9 [place] 10e12/L [facility] Hemoglobin 10.0 (L) 13.3 - [facility] 17.7 g/dL [facility] Hematocrit 29.3 (L) 40.0 - [place] 53.0 % [facility] MCV 96 78 - 100 [facility] MCH 32.7 26.5 - [place] 33.0 pg [facility] MCHC 34.1 31.5 - [place] 36.5 g/dL [facility] RDW 15.0 10.0 - [place] 15.0 % [facility] Platelet Count 82 (L) 150 - 450 [place] 10e9/L [facility] Specimen Anatomical Collection Method Collection Time Receive d Time (Source) Location / / Volume Laterality Blood specimen 03/29/2012 5:52 AM 012 6:20 (specimen) CDT AM CDT Harika Evans PA-C LAB - BLOOD ORDERABLES Performing Organization Address City/[facility]/ZIP [facility] Phon e Number [facility] [address] [place], [place] [address] [facility] (ABNORMAL) Glucose (03/29/2012 5:52 AM CDT) P athologist Signature Glucose 101 (H) 60 - 99 [place] mg/dL [facility] Specimen Anatomical Collection Method Collection Time Receive d Time (Source) Location / / Volume Laterality Blood specimen 03/29/2012 5:52 AM 012 6:20 (specimen) CDT AM CDT Mayito Izquierdo MD LAB - BLOOD ORDERABLES Performing Organization Address City/[facility] Phon e Number [facility] [address] [place], [place] [address] [facility] (ABNORMAL) Platelet count (03/28/2012 5:10 PM CDT) P athologist Signature Platelet Count 95 (L) 150 - 450 [place] 10e9/L [facility] Specimen Anatomical Collection Method Collection Time Receive d Time (Source) Location / / Volume Laterality Blood specimen 03/28/2012 5:10 PM 012 5:29 (specimen) CDT PM CDT Harika Evans PA-C LAB - BLOOD ORDERABLES Performing Organization Address City/[facility]/ZIP Code Phon e Number [facility] [address] [place], [place] [address] [facility] (ABNORMAL) Hemoglobin (03/28/2012 5:10 PM CDT) P athologist Signature Hemoglobin 10.9 (L) 13.3 - 17.7 [place] g/dL [facility] Specimen Anatomical Collection Method Collection Time Receive d Time (Source) Location / / Volume Laterality Blood specimen 03/28/2012 5:10 PM 012 5:29 (specimen) CDT PM CDT Harika ZAVALA-C LAB - BLOOD ORDERABLES Performing Organization Address [facility]/ZIP [facility] Phon e Number [facility] [address] [place], [place] [address] [facility] (ABNORMAL) INR (03/28/2012 10:05 AM CDT) athologist Signature INR 1.20 (H) 0.86 - 1.14 [facility] Specimen Anatomical Collection Method Collection Time Receive d Time (Source) Location / / Volume Laterality Blood specimen 03/28/2012 10:05 2 (specimen) AM CDT 10:11 AM CDT Harika ZAVALA-C LAB - BLOOD ORDERABLES Performing Organization Address [facility] Phon e Number [facility] [address] [place], [place] [address] [facility] (ABNORMAL) CBC with platelets (03/28/2012 5:32 AM CDT) Analysis Performed At Patho logist Time Signature WBC 10.5 4.0 - 11.0 [place] 10e9/L [facility] RBC Count 2.56 (L) 4.4 - 5.9 [place] 10e12/L [facility] Hemoglobin 8.5 (L) 13.3 - [place] 17.7 g/dL [facility] Hematocrit 24.6 (L) 40.0 - [place] 53.0 % [facility] MCV 96 78 - 100 [place] fl [facility] MCH 33.2 (H) 26.5 - [place] 33.0 pg [facility] MCHC 34.6 31.5 - [facility] 36.5 g/dL [facility] RDW 14.1 10.0 - [facility] 15.0 % [facility] Platelet Count 98 (L) 150 - 450 [place] 10e9/L [facility] Specimen Anatomical Collection Method Collection Time Receive d Time (Source) Location / / Volume Laterality 03/28/2012 5:32 AM 2 9:35 CDT AM CDT Mayito Izquierdo MD LAB - BLOOD ORDERABLES Performing Organization Address City/[facility]/ZIP Code Phon e Number [facility] [address] [place], [place] [address] [facility] (ABNORMAL) Basic metabolic panel (03/28/2012 5:32 AM CDT) athologist Signature Sodium 137 133 - 144 [place] mmol/L [facility] Potassium 4.2 3.4 - 5.3 [place] mmol/L [facility] Chloride 107 94 - 109 [place] mmol/L [facility] Carbon Dioxide 24 20 - 32 [place] mmol/L [facility] Anion Gap 6 6 - 17 [place] mmol/L [facility] Glucose 117 (H) 60 - 99 [place] mg/dL [facility] Urea Nitrogen 6 (L) 7 - 30 [place] mg/dL [facility] Creatinine 0.68 0.66 - [facility] 1.25 mg/dL [facility] GFR Estimate >90 >60 [place] mL/min/1.[address] LAB GFR Estimate If >90 >60 [place] Black mL/min/1.[address] LAB Calcium 7.4 (L) 8.5 - 10.4 [place] mg/dL [facility] Specimen Anatomical Collection Method Collection Time Receive d Time (Source) Location / / Volume Laterality 03/28/2012 5:32 AM 2 9:35 CDT AM CDT Mayito Izquierdo MD LAB - BLOOD ORDERABLES Performing Organization Address City/[facility]/ZIP Code Phon e Number [facility] [address] [place], [place] [address] [facility] (ABNORMAL) Hemoglobin (03/28/2012 5:30 AM CDT) athologist Signature Hemoglobin 8.5 (L) 13.3 - 17.7 [place] g/dL [facility] Comment: Duplicate request Charge credited Specimen Anatomical Collection Method Collection Time Receive d Time (Source) Location / / Volume Laterality Blood specimen 03/28/2012 5:30 AM 012 5:32 (specimen) CDT AM CDT Mayito Izquierdo MD LAB - BLOOD ORDERABLES Performing Organization Address City/[facility]/ZIP Code Phon e Number [facility] [address] [place], [place] [address] [facility] (ABNORMAL) Glucose (03/28/2012 5:30 AM CDT) athologist Signature Glucose 117 (H) 60 - 99 [place] mg/dL [facility] Comment: Duplicate request Charge credited Specimen Anatomical Collection Method Collection Time Receive d Time (Source) Location / / Volume Laterality Blood specimen 03/28/2012 5:30 AM 012 5:32 (specimen) CDT AM CDT Mayito Izquierdo MD LAB - BLOOD ORDERABLES Performing Organization Address City/[facility] Code Phon e Number [facility] [address] [place], [place] [address] [facility] Platelets prepare order unit (03/27/2012 9:58 PM CDT) [facility] Method Time Signature Ordered PLT Pheresis [place] Component Type [facility] Units Ordered 1 [facility] Blood Bank Test [place] Comment canceled by [facility] Specimen Anatomical Collection Method Collection Time Receive d Time (Source) Location / / Volume Laterality 03/27/2012 9:58 PM 2 CDT 10:03 PM CDT Mayito Izquierdo MD BLOOD BANK PRODUCT ORDERABLE S Performing Organization Address City/[facility]/ZIP Code Phon e Number [facility] [address] [place], [place] [address] [facility] X-ray Pelvis w/ unilateral hip right [...] BERNIE Blood component (03/27/2012 8:46 AM CDT) [facility] Qinti Method Time Signature Unit Number [id number] [facility] Blood PlateletPher [place] Component Type esis,LeukoRe [facility] LAB (Part 2) Status of Unit Released to [facility] LAB Specimen Anatomical Collection Method Collection Time Receive d Time (Source) Location / / Volume Laterality 03/27/2012 8:46 AM 2 8:51 CDT AM CDT Mayito Izquierdo MD LABORATORY Performing Organization Address City/[facility]/ZIP Code Phon e Number [facility] [address] [place], [place] [address] [facility] Platelets prepare order unit (03/27/2012 8:46 AM CDT) [facility] Qinti Method Time Signature Ordered PLT Pheresis [place] Component Type [facility] Units Ordered 1 [facility] Specimen Anatomical Collection Method Collection Time Receive d Time (Source) Location / / Volume Laterality 03/27/2012 8:46 AM 2 8:51 CDT AM CDT Mayito Izquierdo MD BLOOD BANK PRODUCT ORDERABLE S Performing Organization Address City/[facility] Phon e Number [facility] [address] [place], [place] [address] [facility] Blood component (03/27/2012 8:40 AM CDT) [facility] Qinti Method Time Signature Unit Number [id number] [facility] Blood Plasma, [facility] Type [facility] LAB Status of Unit Released to [facility] LAB Specimen Anatomical Collection Method Collection Time Receive d Time (Source) Location / / Volume Laterality 03/27/2012 8:40 AM 2 8:45 CDT AM CDT Mayito Izquierdo MD LABORATORY Performing Organization Address City/State/ZIP Code Phon e Number [facility] [address] [place], [place] [address] [facility] Blood component (03/27/2012 8:40 AM CDT) [facility] Method Time Signature Unit Number [id number] [facility] Blood Plasma, [facility] LAB Status of Unit [facility] Specimen Anatomical Collection Method Collection Time Receive d Time (Source) Location / / Volume Laterality 03/27/2012 8:40 AM 2 8:45 CDT AM CDT Mayito Izquierdo MD LABORATORY Performing Organization Address City/[facility]/ZIP Code Phon e Number [facility] [address] [place], [place] [address] [facility] Plasma prepare order unit (03/27/2012 8:40 AM CDT) P athologist Signature Ordered Plasma [facility] LAB Units Ordered 2 [facility] Specimen Anatomical Collection Method Collection Time Receive d Time (Source) Location / / Volume Laterality 03/27/2012 8:40 AM 2 8:45 CDT AM CDT Mayito Izquierdo MD BLOOD BANK PRODUCT ORDERABLE S Performing Organization Address City/[facility]/ZIP Code Phon e Number [facility] [address] [place], [place] [address] [facility] documented in this encounter Visit Diagnoses Not on filedocumented in this encounter Active and Recently Administered Medications Times are shown in CDT. Scheduled Medication Order 03/28/2012 03/29/2012 03/30/2012 atorvastatin (LIPITOR) tablet 10 mg (CANCELED) 2113 (Bree crum - Provider: Catie Fletcher RN) 2020 (Given - Provider: Smita Jang RN - Comment: pt requested med now)2199 (Canceled Entry - Provider: Smita Jang RN) 10 mg, Oral, AT BEDTIME, First dose on Tue03/27/12 at 2200 celecoxib (celeBREX) capsule 200 mg (CANCELED) 43 (Bree crum - Provider: Harriett Weaver LPN)2113 (Given - [...] 2200 rivaroxaban ANTICOAGULANT (XARELTO) tablet 10 mg 43 (Given - Provider: Harriett Weaver LPN) 0905 (Given - Provider: Maia Lee, CED) 0819 (Gi mel - Provider: Dayna Tinoco [...] Intravenous, at 125 mL/hr, CONTINUOUS, S tarting Tue03/27/12 at 1315, Change to saline lock when PO well tolerated., Post-procedure PRN Medication Order 03/28/2012 03/29/2012 03/30/2012 HYDROmorphone (DILAUDID) injection 0.2-0.4 mg (CANCELE D) 0630 (Given - Provider: Mabel Cardenas RN) 0.2-0.4 mg, Intravenous, EVERY 2 HOURS P RN, severe pain, or patient unable to take PO, Starting Tue03/27/12 at 1300, Hold while on GRANTS ASSISTANT., Post-procedure magnesium hydroxide (MILK OF MAGNESIA) suspension 30 mL (CANCELE D) 1330 (Given - Provider: Maia eLe RN - Comment: gave to pt didnt [...] Maia Lee RN)1926 (Given - Provider: Smita Jang RN)2204 (Given - Provider: Smita Jang RN) 0912 (Given - Provider: Dayna Tinoco LPN) 5-10 mg, Oral, EVERY 3 HOURS PRN, modera te to severe pain, Starting Tue03/27/12 at 1300, Hold while on GRANTS ASSISTANT or with regular IV opioid dosing., Post-procedure documented in this encounter Care Teams Cmo & President Relationship Specialty Start Date End Date Tello Torres MD PCP - General Family Practice [facility] [address] [place] [id number] documented as of this encounter
--- OUTSIDE RECORDS SUMMARY | 2022-05-14 09:06 | XMS_ITS | Encounter Summary ---
:1945 Author Organization [place] Address [address] [facility] [place] [address] Care Team Providers Name Role Phone Tello Torres MD Primary Care Provider Encounter Details Date Type Department Care Team Description 03/27/2012 Anesthesia Event [facility] Davis Ryder PeriOp Rio Quinteros MD [address] [place] [address] ANESTHESIA [phone] [place], [place] [address] (Wo rk) Anesthesia Record Procedure Summary Procedure Name Responsible Anesthesia Start Anesthesia Stop Time Anesthesiologist Time Right Total Hip Rob Ryder MD 03/27/12 0715 2 0905 (Right Hip) Events Date Time Event Comment 03/27/2012 0715 0715 An Start 0722 An Start Data 0723 An Induction 0726 An Intubation 0905 An Stop Name Total ceFAZolin (ANCEF) 1 g vial to attach to IVPB 2 g Agents No agents on file. Blood No blood administrations on file. Lines, Drains, and Airways Type Details Placement Removal Peripheral IV 03/27/12; 0646; 18 G; 03/27/12 0646 by 03/30/12 1225 by Left; Lower forearm; Rob Ryder, Lynn rt, Dayna Alcohol; Injectable; MD Bosch, RN Tolerated well RETIRED ETT 03/27/12; 0726; Airway 03/27/12 0726 by 03/27/12 0856 by Size: 8; Cuffed; Oral Surendra Delgado, Surendra Yanez, endotracheal tube; Blade MELISSA BRUCE Type: Hernandez; Blade Size: 2; Place by: mdt; Insertion Attempts: 1; Secured at (cm)to lip: 22 cm; Breath Sounds: Equal, clear and bilateral; End Tidal CO2: Present; Dentition: Intact; Grade View of Cords: 1 Urethral Catheter 03/27/12; 0730; 16 fr 03/27/12 0730 by 2 1131 by Elana Wong, Rolf Infante RN Peripheral IV 16 G; Right; Hand; 03/27/12 0837 by 03/30/12 125 4 by Alcohol; None; Tolerated Maia Lee, racheal; blood products RN Closed/Suction Drain 03/27/12; 0839; 1; 03/27/12 0839 by 2 0520 by Right, Midline; Hip; Elana Wong, CED Aksam it, Hiro Accordion; 10 Sinhala N, RN Incision/Surgical Site 03/27/12; 0844; Midline, 03/27/12 0844 by 04/04/22 0000 by Right; Hip; 04/04/22 Elana Wong, Sarahi Valentino RN documented in this encounter Social History Tobacco [...] on file documented as of this encounter OR Notes Anesthesia Postprocedure Evaluation - Leonides Emmanuel MD - 03/27/2012 10:22 AM CDT Anesthesia Post-Evaluation Note [facility]: [facility] Patient Condition Respiratory Function (RR / SpO2 / Airway Patency): Satisfactory Cardiac Function (HR / Rhythm / BP): Satisfactory Mental Status: Satisfactory Temperature: Satisfactory Pain Control: Satisfactory PONV: None or treated Beta-Violeta Therapy: None indicated or treated Hydration Status: Satisfactory B/P: 108/65, T: 97, P: Data Unavailable, R: 8 Leonides Emmanuel MD Anesthesia Preprocedure Evaluation - Rob Ryder MD - 03/27/2012 6:44 AM CDT Anesthesia Evaluation history and physical reviewed . Pt has had prior anesthetic. ROS/MED HX Pulmonary: - neg pulmonary ROS Neurologic: - neg neurologic ROS Cardiovascular: (+) hypertension . . METS/Exercise Tolerance: Hematologic: - neg hematologic ROS Musculoskeletal: - neg musculoskeletal ROS GI/Hepatic: - neg GI/hepatic ROS Renal: - neg renal ROS Endo: - neg endo ROS Psychiatric: - neg psychiatric ROS Infectious Disease: - neg infectious disease ROS Other: - neg other ROS Physical Exam Normal systems: dental Airway Mallampati: II TM distance: >3 FB Neck ROM: full Dental Cardiovascular Rhythm and rate: regular and normal (-) no murmur Pulmonary breath sounds clear to auscultation Anesthesia Plan ASA Score 2 . Plan for General and ETT with Propofol induction. Routine analgesia and antiemetics to be used for post-operative care. Anesthetic plan, risks, benefits and alternatives discussed with: patient or financial service representative. Possibility of blood products discussed. HGB 15 K 3.9 . documented in this encounter Miscellaneous Notes Anesthesia Care Transfer Note - Surendra Delgado APRN CRNA - 03/27/2012 9:04 AM CDT Anesthesia Care Transfer Note Patient: Colin Diaz Transferred to: PACU Patient vital signs: stable Airway: none documented in this encounter Plan of Treatment Not on filedocumented as of this encounter Visit Diagnoses Not on filedocumented in this encounter Administered Medications Inactive Administered Medications - up to 3 most recent administrations Medication Order MAR Action Action Date Dose Rate Site ceFAZolin (ANCEF) 1 g vial to attach Given 03/27/2012 7:16 AM CD T 2 g to IVPB Routine, 1 g, Intravenous, EVERY 2 HOURS PRN, Starting on 03/27/12 at 0538, Intra-op Dose. , Give every 2 hours while patient in surgery, starting 2 hours after pre-op dose. DO NOT GIVE intra-op dose if CrCl < 10 mL/min (on dialysis). If CrCL < 50 mL/min, double the time interval between doses., Pre-procedure documented in this encounter Care Teams Commercial Announcer Relationship Specialty Start Date End Date Tello Torres MD PCP - General Family Practice 03/06/12 [facility] [address] [place] [address] documented as of this encounter
--- OUTSIDE RECORDS SUMMARY | 2022-05-14 09:06 | XMS_ITS | Encounter Summary ---
:1945 Author Organization [place] Address [address] [place] [address] Care Team Providers Name Role Phone Tello Torres MD Primary Care Provider Reason for Visit Auth/Cert - Closed Specialty Diagnoses / Procedures Referred By Contact Refer red To Contact Surgery Diagnoses Degenerative Joint Disease Rh Periop Services Procedures ARTHROPLASTY HIP [address] [place], [place] [address] Phone: Fax: Referral ID Status Reason Start Date Expiration Date Visits Requ ested Visits Authorized [id number] Closed 1 1 Encounter Details Date Type Department Care Team Description 03/24/2012 Hospital Encounter [facility], Laboratory MD Andrzej [address] [facility] [place] [address] CONSULTANTS [phone] [place] [address] Social History Tobacco Use Types [...] on file documented as of this encounter Medications at Time of Discharge [...] mouth two times daily for 30 days. aspirin 325 MG tablet Take by mouth 0 03/29/2012 daily. LISINOPRIL PO Take 10 mg by mouth 0 daily. rivaroxaban ANTICOAGULANT Take 1 tablet by 0 03/1503/30/2012 (XARELTO) 10 MG TABS mouth daily for 10 tabletIndications: Status days. post THR (total hip replacement) documented as of this encounter Plan of Treatment Not on filedocumented as of this encounter Procedures Procedure Name Priority Date/Time Associated Comments Diagnosis BLOOD COMPONENT Routine 03/24/2012 9:00 AM Result s for this CDT procedure are i n the results section. BLOOD COMPONENT Routine 03/24/2012 9:00 AM Result s for this CDT procedure are i n the results section. BLOOD COMPONENT Routine 03/24/2012 9:00 AM Result s for this CDT procedure are i n the results section. BLOOD COMPONENT Routine 03/24/2012 9:00 AM Result s for this CDT procedure are i n the results section. POTASSIUM Routine 03/24/2012 9:00 AM Results f or this CDT procedure are i n the results section. HEMOGLOBIN Routine 03/24/2012 9:00 AM Results f or this CDT procedure are i n the results section. CREATININE Routine 03/24/2012 9:00 AM Results f or this CDT procedure are i n the results section. ABO/RH TYPE AND Routine 03/24/2012 9:00 AM Result s for this SCREEN CDT procedure are i n the results section. documented in this encounter Results Blood component (03/24/2012 9:00 AM CDT) [facility] Method Time Signature Unit Number [id number] [facility] LAB Blood Red Blood BOVEY Component [facility] LAB Reduced Status of Released to [facility] LAB Specimen Anatomical Collection Method Collection Time Receive d Time (Source) Location / / Volume Laterality 03/24/2012 9:00 AM 2 9:05 CDT AM CDT Andrzej Izquierdo MD LABORATORY Performing Organization Address City/State/ZIP Code Phon e Number [facility] [address] [place], [place] [phone] [place] [address] LAB Blood component (03/24/2012 9:00 AM CDT) [employer] Method Time Signature Unit Number [id number] [facility] LAB Blood Red Blood [facility] LAB Reduced Status of Released to [facility] LAB Specimen Anatomical Collection Method Collection Time Receive d Time (Source) Location / / Volume Laterality 03/24/2012 9:00 AM 2 9:05 CDT AM CDT Andrzej Izquierdo MD LABORATORY Performing Organization Address City/[facility]/ZIP Code Phon e Number [facility] [address] [place], [place] [address] [facility] LAB Blood component (03/24/2012 9:00 AM CDT) [employer] Method Time Signature Unit Number [id number] [facility] LAB Blood Red Blood [facility] LAB Reduced Status of Released to [facility] LAB Specimen Anatomical Collection Method Collection Time Receive d Time (Source) Location / / Volume Laterality 03/24/2012 9:00 AM 2 9:05 CDT AM CDT Andrzej Izquierdo MD LABORATORY Performing Organization Address City/[facility]/ZIP Code Phon e Number [facility] [address] [place], [place] [phone] [place] [address] LAB Blood component (03/24/2012 9:00 AM CDT) [employer] Method Time Signature Unit Number [id number] [facility] LAB Blood Red Blood [facility] Component Cells [place] Type Leuk[facility] LAB Reduced Status of Released to [facility] LAB Specimen Anatomical Collection Method Collection Time Receive d Time (Source) Location / / Volume Laterality 03/24/2012 9:00 AM 2 9:05 CDT AM CDT Andrezj Izquierdo MD LABORATORY Performing Organization Address City/[facility]/ZIP Code Phon e Number [facility] [address] [place], [place] [address] [facility] LAB Potassium (03/24/2012 9:00 AM CDT) athologist Signature Potassium 3.9 3.4 - 5.[address] [facility] mmol/L [facility] LAB Specimen Anatomical Collection Method Collection Time Receive d Time (Source) Location / / Volume Laterality 03/24/2012 9:00 AM 2 9:05 CDT AM CDT Andrzej Izquierdo MD LAB - BLOOD ORDERABLES Performing Organization Address City/[facility]/ZIP Code Phon e Number [facility] [address] [place], [place] [address] [facility] LAB Hemoglobin (03/24/2012 9:00 AM CDT) athologist Signature Hemoglobin 15.0 13.3 - 17.[address] [facility] g/dL [facility] LAB Specimen Anatomical Collection Method Collection Time Receive d Time (Source) Location / / Volume Laterality 03/24/2012 9:00 AM 2 9:05 CDT AM CDT Andrzej Izquierdo MD LAB - BLOOD ORDERABLES Performing Organization Address City/[facility]/ZIP [facility] Phon e Number [facility] [address] [place], [place] [address] [facility] LAB Creatinine (03/24/2012 9:00 AM CDT) athologist Signature Creatinine 0.84 0.66 - [facility] 1.25 mg/dL [facility] LAB GFR Estimate >90 >60 [facility] mL/min/1.[address] LAB GFR Estimate If >90 >60 [facility] Black mL/min/1.[address] LAB Specimen Anatomical Collection Method Collection Time Receive d Time (Source) Location / / Volume Laterality 03/24/2012 9:00 AM 2 9:05 CDT AM CDT Andrzej Izquierdo MD LAB - BLOOD ORDERABLES Performing Organization Address City/[facility]/ZIP Code Phon e Number [facility] [address] [place], [place] [address] [facility] LAB ABO/Rh type and screen (03/24/2012 9:00 AM CDT) [facility] gist Method Time Signature Units Ordered 4 [facility] ABO O [facility] RH(D) Pos [facility] LAB Antibody Screen Neg [facility] LAB Specimen 03/30/2012 [facility] LAB Crossmatch Red Blood [facility] LAB Specimen Anatomical Collection Method Collection Time Receive d Time (Source) Location / / Volume Laterality 03/24/2012 9:00 AM 2 9:05 CDT AM CDT Andrzej Izquierdo MD LAB - BLOOD BANK TEST ORDER Performing Organization Address City/[facility]/ZIP Code Phon e Number [facility] [address] [place], [place] [address] [facility] LAB documented in this encounter Visit Diagnoses Not on filedocumented in this encounter Care Teams Carpenter Inspector Relationship Specialty Start Date End Date Tello Torres MD PCP - General Family Practice 03/06/12 [facility] [address] [place] [address] documented as of this encounter
--- OUTSIDE RECORDS SUMMARY | 2022-05-14 09:07 | XMS_ITS ---
:1945 Author Care Team Providers Name Role Phone AUSTIN MCCAIN MD Primary Care Provider [phone] Allergies Code Code System Name Reaction Severity Status Onset NKDA ? Medications Name Status Start Date Stop Date ? ? amoxicillin 500 mg capsule Active ? Not a vailable TAKE 4 CAPSULES BY MOUTH 1 HOUR PRIOR TO APPOINTMENT atorvastatin 20 mg tablet Active ? Not av ailable TAKE 1/2 TABLET BY MOUTH AT BEDTIME azithromycin 250 mg tablet Completed ? 07/13 TAKE TWO TABLETS BY MOUTH ON DAY 1 THEN 1 TABLET DAILY FOR 4 MO RE DAYS ciprofloxacin 500 mg tablet Active ? Not available fluorouracil 5 % topical cream Active ? N ot available APPLY TO AREAS ON THE NECK ONCE DAILY FOR 6 WEEKS imiquimod 5 % topical cream packet Active ? Not available 1 APPLICATION TOPICALLY TO AFFECTED ARE A TUESDAY, TUESDAY, TUESDAY AT BEDTIME, WASH OFF IN THE MORNING FOR 4 WEEKS Orgovyx 120 mg tablet Active ? Not availa ble oxycodone-acetaminophen 5 mg-325 mg tablet Active ? Not available sulfamethoxazole 800 mg-trimethoprim 160 mg tablet Completed ? 12/10/2021 tamsulosin 0.4 mg capsule Active ? Not av ailable TAKE ONE CAPSULE BY MOUTH EVERY DAY FOR 30 DAYS Problems Name Status Onset Date Source ? Raised Prostate Specific Antigen Active 09/28/2018 History Procedures Date Name Performed by ? 11/13/2020 MRI, Prostate, W[facility] [address] [place] [address] (Work Place) Results Lab Results Date Name Specimen Result Interpretation Description Value Range Status Address ? 12/10/2021 PSA, Serum or ? PSA, Total 0.67 ng/mL ? ? Plasma 12/10/2021 PSA, Serum or ? No observation recorded. ? ? ? Plasma 07/13/2021 PSA, Serum or ? PSA, Total 12.7 ? ? Plasma 10/07/2020 PSA, Serum or ? No observation recorded. ? ? ? Plasma Past Encounters 12/10/2021 Raised Prostate Specific Antigen; Malign ant Tumor of Prostate Tom Bond MD: [address], [place] [address], Ph. 09/11/2021 Malignant Tumor of Prostate Tom Bond MD: [address], [place] [address], Ph. 07/13/2021 Malignant Tumor of Prostate Tom Bond MD: [address], [place] [address], Ph. 07/13/2021 Tom Bond MD: [address], [place] [address], Ph. 02/19/2021 Malignant Tumor of Prostate Tom Bond MD: [address], [place] [address], Ph. 01/22/2021 Raised Prostate Specific Antigen; Benign Prostatic Hyperplasia with Outflow Obstruction; Malignant Tumor of Prostate Tom Bond MD: [address], [place] [address], Ph. 12/30/2020 Raised Prostate Specific Antigen Tom Bond MD: [address] [facility], [address] [place] [address], Ph. 11/13/2020 Raised Prostate Specific Antigen; Benign Prostatic Hyperplasia with Outflow Obstruction Tom Bond MD: [address], [place] [address], Ph. Social History Tobacco Smoking Status Former Smoker Vaccine List Vaccine Type COVID-19, mRNA, LNP-S, PF, 100 mcg/0.5 m L dose (Moderna) 10/03/2020 10/31/2020 07/01/2021 Hep A, adult 10/28/2005 influenza, high dose seasonal 05/27/2015 05/18/2016 05/16/2017 06/03/2018 influenza, high-dose, quadrivalent 04/29/2020 influenza, recombinant, quadrIvalent,inj ectable, preservative free 06/18/2019 influenza, seasonal, injectable 06/24/2008 06/25/2014 influenza, seasonal, injectable, preserv ative free 05/20/2009 06/26/2010 06/10/2011 04/26/2012 05/23/2013 novel [id number] 07/04/2009 pneumococcal conjugate PCV 13 12/06/2014 pneumococcal polysaccharide [id number] 10/22/2009 11/20/2010 Tdap 10/22/2009 04/11/2019 zoster live 09/13/2007 zoster recombinant 12/17/2020 02/18/2021 Plan of Care Patient Instructions Will f/u with Dr. Bond as planned Reminders Provider Appointments None recorded. ? ? Lab None recorded. ? ? Referral None recorded. ? ? Procedures None recorded. ? ? Surgeries None recorded. ? ? Imaging None recorded. ? ? Vitals 12/10/2021 02:45PM ESTABLISHED 15 Height Weight BMI 6 ft 193 lbs 26.2 kg/m2 07/13/2021 02:30PM ESTABLISHED 10 Height Weight BMI 6 ft 203 lbs 27.5 kg/m2 02/19/2021 04:00PM ESTABLISHED PHONE VISIT 30 Height Weight BMI 6 ft 203 lbs 27.5 kg/m2 01/22/2021 04:00PM CA TALK Height Weight BMI 6 ft 203 lbs 27.5 kg/m2 12/30/2020 08:00AM URONAV 30 Height Weight BMI 6 ft 203 lbs 27.5 kg/m2 11/13/2020 02:30PM ESTABLISHED 10 Height Weight BMI 6 ft 203 lbs 27.5 kg/m2
--- OUTSIDE RECORDS SUMMARY | 2022-05-14 09:07 | XMS_ITS | Clinical Summary ---
:1945 Author Organization [facility] [place] [address] Care Team Providers Name Role Phone Narendra Torres MD [facility] Provider [facility] Un[facility] Allergies No known active allergies Medications Medication Sig Dispensed Refills Start Date End Date Status atorvastatin Take 1 tablet by 0 03/19/2020 Active (LIPITOR) 20 mg mouth once daily. tablet niacin 500 mg tablet Take 1 tablet by 0 04/02/2020 Active mouth once daily. multivitamin Take 1 tablet by 0 04/02/2020 Active (MULTIPLE VITAMINS) mouth once daily. tablet naproxen (ALEVE) 220 Take 1 tablet by 0 04/02/2020 Active mg tablet mouth 2 times daily with meals. FERROUS GLUCONATE Take 324 mg by mouth 0 Active ORAL once daily. relugolix (Orgovyx) Take 1 Tablet by 0 Active 120 mg tab mouth once daily. oxyCODONE-acetaminop Take 1 Tablet by 8 Tablet 0 09/08/2021 Active hen (PERCOCET) 5-325 mouth every 6 hours mg per if needed for Pain. tabletIndications: Max acetaminophen Prostate cancer (HC) dose: 4000mg in 24 hrs. Active Problems Not on file Social History Tobacco Use Types Packs/Day Years Used Date Former Smoker Cigarettes Quit: 1986 Smokeless Tobacco: Never Used Tobacco Cessation: Counseling Given: Yes Alcohol Use Standard Drinks/Week Comments Yes 0 (1 standard drink = 0.6 oz pure alcoho l) 1-2 per day Alcohol Habits Answer Date Recorded How often do you have a drink containing alcohol? Not asked How many drinks containing alcohol do you have on a typical Not asked day when you are drinking? How often do you have six or more drinks on one occasion? No t asked Comment: 1-2 per day 09/03/2021 Sex Assigned at Date Recorded Not on file Obstetrics History Last Filed Vital Signs Vital Sign Reading Time Taken Comments Blood Pressure 147/88 09/08/2021 3:15 PM CALL OUT CLERK Pulse 84 09/08/2021 3:15 PM CALL OUT CLERK Temperature 36.5 ??C (97.7 ??F) 09/08/2021 2:15 PM CALL OUT CLERK Respiratory Rate 18 09/08/2021 3:15 PM CALL OUT CLERK Oxygen Saturation 98% 09/08/2021 2:15 PM CALL OUT CLERK Inhaled Oxygen Concentration - - Weight 88.5 kg (195 lb) 09/08/2021 9:13 AM CALL OUT CLERK Height 182.9 cm (6') 09/08/2021 9:13 AM CALL OUT CLERK Body Mass Index 26.45 09/08/2021 9:13 AM CALL OUT CLERK Plan of Treatment Health Maintenance Due Date Last Done Comments Tdap 1957 Depression screening for age 12+ 1958 BMI (ht and wt on same day) for age 0108/18/1964 18+ Hepatitis C screening for age 18-79 1964 Tetanus booster 1966 Colonoscopy through age 75 1991 Lipids for age 45-75 1991 Zoster (shingles) series for age 50+ 1996 (1 of 2) AAA screening age 55-77 2001 Medicare Wellness for age 65+ 2011 Pneumococcal series for age 65+ (1 - 2011 PCV) COVID-19 vaccine series (4 - Booster 10/29/2021 07/01/2021, 10/31/2020, for Moderna series) 10/03/2020 Influenza for age 65+ 04/15/2022 Results Not on filefrom Last 3 Months Insurance Payer Benefit Plan / Subscriber ID Effective Dates Phone Addre ss Type Group MEDICARE PART A MEDICARE PART A [id number] 2011-Present ATTN: CLAIMS - HB USE ONLY HB ONLY [address] [facility] [place] [address] UCARE JONAH MEDICARE [id number] 2019-Present [address] [place] [address] Advance Directives Latest Code Status on File Code Status Date Activated Date Inactivated Comments Full Code 09/08/2021 8:53 AM 09/09/2021 2:30 AM Code Status Discussion: Not Discussed Care Teams Geometrician Relationship Specialty Start Date End Date Narendra Torres MD PCP - General Family Practice 08/19/21 [address] [place] [address] Tom Bond MD Surgery - Urology 09/07/21 [address] [place] [address]
[2022-05-14 14:34] LABS: Chloride* 102 mmol/L (96-114)
[2022-05-14 14:35] LABS: Potassium* 3.9 mmol/L (3.6-5.1); Sodium* 139 mmol/L (135-149)
[2022-05-14 14:37] LABS: Cholesterol* 134 mg/dL (90-199); Creatinine* 0.6 mg/dL (0.5-1.5); Estimated Glomerular Filt Rate 101 ml/min
[2022-05-14 14:38] LABS: Blood Urea Nitrogen* 10 mg/dL (7-30); Calcium* 10.1 mg/dL (8.4-10.6); Carbon Dioxide* 26 mmol/L (20-32); Glucose* 114 mg/dL (60-115); Triglycerides* 181 mg/dL (40-149)
[2022-05-14 14:39] LABS: HDL Cholesterol* 50 mg/dL (>=40); LDL Cholesterol Calculated 48 mg/dL (<100)
[2022-05-14 15:14] LABS: PSA Diagnostic* 0.36 ng/mL (0.10-4.00)
== END 2022-05-14 08:47 | disposition home or self-care (01) ==
PROVIDERS: PCP Family Medicine; Visit Provider Family Medicine
DX: E78.5 Hyperlipidemia, unspecified (principal); I10 Essential (primary) hypertension; C61 Malignant neoplasm of prostate
CPT/HCPCS: 80048; 80061; 84153

== ENCOUNTER 2022-07-09 07:07 | Outpatient (CLI) | payer MEDICARE, SELFPAY ==
--- OUTSIDE RECORDS SUMMARY | 2022-07-07 14:48 | XMS_ITS | Encounter Summary ---
:1945 Author Organization [place] Address [address] [place] [address]. [place] [address] Care Team Providers Name Role Phone Tello Torres MD Primary Care Provider Reason for Visit Reason Comments Shoulder Pain Encounter Details Date Type Department Care Team Description 04/04/2022 Emergency [facility] Clayton Bullock MD Acute pain of both shoulders; [facility] Emergency Dep t [facility] Other fatigue [address] [place], [place] [address] [place] [id number] [place] [address] [place], [place] [id number] (Wo rk) Social History Tobacco Use Types Packs/Day Years Used Date Smoking Tobacco: Former Cigarettes Quit : 03/17/1987 Alcohol Use Standard Drinks/Week Comments Yes 0 (1 standard drink = 0.6 oz pure alcoho l) 1 drink every other day Sex Assigned at Date Recorded Not on [...] he does not use drugs. PCP: Tello Torers Physical Exam Patient Vitals for the past [...] deviation, abnormal ECG. Ventricular rate 92 bpm. [place] interval 154 ms. QRS duration 88 ms. [...] / PM CDT PM CDT Unknown Narrative LABORATORY - 04/04/2022 3:23 PM CDT Testing was performed using the Xpert Xpress SARS-CoV-2 Assay on the [employer]. A dditional information about this [...] COVID-19. This test was validated by the [facility]. This laboratory is certified under the Clinical Laboratory Improvement Amendments of 1988 (CLIA-88) as qualified to perform high complexity laboratory testing. Benjamin Bullock MD LAB - MICRO GENERAL ORDERABL ES Performing Organization Address City/[facility]/ZIP Code Ph[place] [address] Care Lab [address] Lab (1st floor, no room number) CK total (04/04/2022 2:13 PM CDT) P athologist Signature CK 136 39 - 308 U/L 04/04/2022 LABORATORY 3:18 PM CDT Specimen Anatomical Collection Method / Collection Time Recei katya Time (Source) Location / Volume Laterality Blood VENOUS LINE / Venipuncture / 04/04/2022 2:13 2 2:19 Unknown Unknown PM CDT PM CDT Benjamin Bullock MD LAB - BLOOD ORDERABLES Performing Organization Address City/[facility]/ZIP Code [place] [address] Care Lab [address] Lab (1st floor, no room number) [...] City/State/ZIP Code Phon [place] [address] Care Lab [address] Lab (1st floor, no room number) (ABNORMAL) CBC with platelets and differential (04/04/2022 2:13 PM CDT) [facility] Method Time Signature WBC Count 7.3 [...] Address City/State/ZIP Code [place] [address] [facility] [address] [facility], no room number) Troponin [...] City/State/ZIP Code Phon [place] [address] Care Lab [address] Lab (1st floor, no room number) [...] and gender (Ruba et al., NEJM, DOI: 10.1056/[id number]) Calcium 9.2 8.8 - 10.2 mg/dL 04/04/2022 2:46 PM CDT RH LABORATORY Specimen Anatomical Collection Method / Collection Time Recei katya Time (Source) Location / Volume Laterality Blood VENOUS LINE / Venipuncture / 04/04/2022 2:13 2 2:19 Unknown Unknown PM CDT PM CDT Benjamin Bullock MD LAB - BLOOD ORDERABLES Performing Organization Address City/State/ZIP Code Phon [place] [phone] Care Lab [address] Lab (1st floor, no room number) EKG 12-lead, tracing only (04/04/2022 2:06 PM CDT) [facility] Method Time Signature Systolic Blood mmHg RADIOLOGY Pressure RESULTS Diastolic Blood mmHg RADIOLOGY Pressure RESULTS Ventricular Rate 92 BPM RADIOLOGY RESULTS Atrial Rate 92 BPM RADIOLOGY RESULTS [place] Interval 154 ms RADIOLOGY RESULTS QRS Duration 88 ms RADIOLOGY RESULTS QT 348 ms RADIOLOGY RESULTS QTc 430 ms RADIOLOGY RESULTS P Burke 50 degrees RADIOLOGY RESULTS R AXIS -31 degrees RADIOLOGY RESULTS T Burke 52 degrees RADIOLOGY RESULTS Interpretation Sinus rhythm RADIOLOGY ECG Left axis deviation RESULTS Abnormal ECG No previous ECGs available Specimen Anatomical Collection Method Collection Time Receive d Time (Source) Location / / Volume Laterality 04/04/2022 2:06 PM 6:49 CDT PM CDT Benjamin Bullock MD ECG ORDERABLES Performing Organization Address City/[facility]/ZIP Code Phon e Number RADIOLOGY RESULTS documented in this encounter Visit Diagnoses Diagnosis Acute pain of both shoulders Other fatigue documented in this encounter Care Teams Consumer Marketing Specialist Relationship Specialty Start Date End Date Tello Torres MD PCP - General Family Practice 03/06/12 [facility] [address] [place] [address] documented as of this encounter
--- OUTSIDE RECORDS SUMMARY | 2022-07-07 14:48 | XMS_ITS | Encounter Summary ---
:1945 Author Organization [place] Address [address] [place] [address]. [place] [address] Care Team Providers Name Role Phone Tello [...] on filedocumented in this encounter Care Teams Youth Accommodation Support Worker Relationship Specialty Start Date End Date Tello Torres MD PCP - General Family Practice 03/06/12 [facility] [address] [place] [address] documented as of this encounter
--- OUTSIDE RECORDS SUMMARY | 2022-07-07 14:48 | XMS_ITS | Clinical Summary ---
:1945 Author Organization [place] Address [address] [place] [address]. [place] [address] Care Team Providers Name Role Phone Tello [...] Previously signed by patient and notarized by [employer]. Cash Control Specialist scanned into EMR as Advance Directive/Living Will document. View document and details in C ode Status History Report. Please see ad guillaume directive for specifics. 03/27/2012 Social History Tobacco Use Types Packs/Day Years [...] (Cologuard) 1945 FIT 1945 FLEX SIG 1945 HEPATITIS B IMMUNIZATION (1 1945 of 3 - 3-dose series) COLONOSCOPY 1956 COLORECTAL CANCER SCREENING 1956 HEPATITIS C SCREENING 1964 LIPID 1981 LUNG CANCER SCREENING 1996 AORTIC ANEURYSM SCREENING 2011 (SYSTEM ASSIGNED) FALL RISK ASSESSMENT 2011 MEDICARE ANNUAL WELLNESS 2011 VISIT Pneumococcal Vaccine: 65+ 12/07/2015 12/06/2014, 11/20/2010 , Years (#3) 10/22/2009 ADVANCE CARE PLANNING 03/27/2017 03/27/2012 PHQ-2 (once per calendar 08/15/2021 year) COVID-19 Vaccine (4 - 08/26/2021 07/01/2021, 10/31/2020, Booster for Moderna series) 10/03/2020 INFLUENZA VACCINE (#1) 2022 04/29/2020, 06/18/2019, 06/03/2018, Additional history exists DTAP/TDAP/TD IMMUNIZATION 04/11/2029 04/11/2019, 10/22/2009 (3 - Td or Tdap) ZOSTER IMMUNIZATION Completed 02/18/2021, 12/17/2020, 09/13/2007 IPV IMMUNIZATION Aged Out No longer eligi ble based on patient 's age to complete this topic MENINGITIS IMMUNIZATION Aged Out No longe r eligible based on patient 's age to complete this topic Medical Devices Implanted Type Area [employer]ane Farm Manager Device Shelf Model / Identifier Expiration Date Ser ial / Lot Imp Head Femoral Strk Biolox Delta Ceramic 36mm -5mm Right: 11/25/2016 [id number] / Implanted: Qty: 1 on 03/27/2012 by Andrzej Ricks MD at [facility] Hip / [id number] Insurance Payer Benefit Plan / Subscriber ID Effective Dates Phone Addre ss Type Group UCARE ARE MEDICARE [id number] 2019-Present [phone] [address] [place] [address] Advance Directives For more information, please contact: [phone] Latest Code Status on File Code Status Date Activated Date Inactivated Comments Full Code 03/29/2012 10:59 AM 04/04/2022 1:21 PM Code Status History Code Status Date Activated Date Inactivated Comments Full Code 03/27/2012 1:01 PM 03/29/2012 10:59 AM Care Teams Household Personal Assistant Relationship Specialty Start Date End Date Tello Torres MD PCP - General Family Practice 03/06/12 [facility] [address] [place] [address]
--- OUTSIDE RECORDS SUMMARY | 2022-07-07 14:49 | XMS_ITS | Encounter Summary ---
:1945 Author Organization [place] Address [address] [place] [address] Care Team Providers Name Role Phone Tello Torres MD Primary Care Provider Reason for Visit Auth/Cert - Closed Specialty Diagnoses / Procedures Referred By Contact Refer red To Contact Surgery Diagnoses Degenerative Joint Disease Rh Periop Services Procedures ARTHROPLASTY HIP [address] [place], [place] [address] Phone: Fax: Referral ID Status Reason Start Date Expiration Date Visits Requ ested Visits Authorized [id number] Closed 1 1 Encounter Details Date Type Department Care Team Description 03/24/2012 Hospital Encounter [facility], Laboratory MD Andrzej [address] [facility] [place] [address] CONSULTANTS [phone] [facility] [address] [place] [address] Social History Tobacco Use Types [...] Results Blood component (03/24/2012 9:00 AM CDT) [facility] gist Method Time Signature Unit Number [id number] [facility] Blood Red Blood [place] Component Cells [facility] HOSPITAL LAB Reduced Status of Released to [facility] LAB Specimen Anatomical Collection Method Collection Time Receive d Time (Source) Location / / Volume Laterality 03/24/2012 9:00 AM 2 9:05 CDT AM CDT Andrzej Izquierdo MD LABORATORY Performing Organization Address City/[facility]/ZIP [facility] Phon e Number Rolf [facility] [address] [place], [place] [address] [facility] Blood component (03/24/2012 9:00 AM CDT) Patholo Remotemedical Method Time Signature Unit Number [id number] [facility] Blood Red Blood [facility] LAB Reduced Status of Released to [facility] LAB Specimen Anatomical Collection Method Collection Time Receive d Time (Source) Location / / Volume Laterality 03/24/2012 9:00 AM 2 9:05 CDT AM CDT Andrzej Izquierdo MD LABORATORY Performing Organization Address City/[facility]/ZIP [facility] Phon e Number Rolf [facility] [address] [place], [place] [address] [facility] Blood component (03/24/2012 9:00 AM CDT) PathDigiZmart Method Time Signature Unit Number [id number] [facility] Blood Red Blood [facility] LAB Reduced Status of Released to [facility] LAB Specimen Anatomical Collection Method Collection Time Receive d Time (Source) Location / / Volume Laterality 03/24/2012 9:00 AM 2 9:05 CDT AM CDT Andrzej Izquierdo MD LABORATORY Performing Organization Address City/[facility]/ZIP Code Phon e Number Rolf [facility] [address] [place], [place] [address] [facility] Blood component (03/24/2012 9:00 AM CDT) Patholo Remotemedical Method Time Signature Unit Number [id number] [facility] Blood Red Blood [facility] LAB Reduced Status of Released to [facility] LAB Specimen Anatomical Collection Method Collection Time Receive d Time (Source) Location / / Volume Laterality 03/24/2012 9:00 AM 2 9:05 CDT AM CDT Andrzej Izquierdo MD LABORATORY Performing Organization Address City/[facility]/ZIP [facility] Phon e Titus [facility] [address] [place], [place] [address] [facility] Potassium (03/24/2012 9:00 AM CDT) P athologist Signature Potassium 3.9 3.4 - 5.3 [facility] mmol/L HOSPITAL LAB Specimen Anatomical Collection Method Collection Time Receive d Time (Source) Location / / Volume Laterality 03/24/2012 9:00 AM 2 9:05 CDT AM CDT Andrzej Izquierdo MD LAB - BLOOD ORDERABLES Performing Organization Address [facility] Phon e [facility] [address] [place], [place] [address] [address] [phone] [place] [address] LAB Hemoglobin (03/24/2012 9:00 AM CDT) athologist Signature Hemoglobin 15.0 13.3 - 17.7 [facility] g/dL HOSPITAL LAB Specimen Anatomical Collection Method Collection Time Receive d Time (Source) Location / / Volume Laterality 03/24/2012 9:00 AM 2 9:05 CDT AM CDT Andrzej Izquierdo MD LAB - BLOOD ORDERABLES Performing Organization Address City/[facility] Phon e Number [facility] [address] [place], [place] [address] 7 [phone] [place] [address] LAB Creatinine (03/24/2012 9:00 AM CDT) P athologist Signature Creatinine 0.84 0.66 - [facility] 1.25 mg/dL [facility] LAB GFR Estimate >90 >60 [facility] mL/min/1.7 [facility] m2 [facility] LAB GFR Estimate If >90 >60 [facility] mL/min/1.7 [facility] m2 [facility] LAB Specimen Anatomical Collection Method Collection Time Receive d Time (Source) Location / / Volume Laterality 03/24/2012 9:00 AM 2 9:05 CDT AM CDT Andrzej Izquierdo MD LAB - BLOOD ORDERABLES Performing Organization Address City/[facility]/ZIP Code Phon e Number M [facility] [address] [place], [place] [address] [facility] ABO/Rh type and screen (03/24/2012 9:00 AM CDT) [facility] gist Method Time Signature Units Ordered 4 [facility] ABO O [facility] RH(D) Pos [facility] Antibody Screen Neg [facility] Specimen 03/30/2012 [facility] LAB Crossmatch Red Blood [facility] LAB Specimen Anatomical Collection Method Collection Time Receive d Time (Source) Location / / Volume Laterality 03/24/2012 9:00 AM 2 9:05 CDT AM CDT Andrzej Izquierdo MD LAB - BLOOD BANK TEST ORDER Performing Organization Address [facility] Phon e Number Rolf [facility] [address] [place], [place] [address] [facility] documented in this encounter Visit Diagnoses Not on filedocumented in this encounter Care Teams Preventive Medicine Officer Relationship Specialty Start Date End Date Tello Torres MD PCP - General Family Practice 03/06/12 [facility] [address] [place] [address] documented as of this encounter
--- OUTSIDE RECORDS SUMMARY | 2022-07-07 14:49 | XMS_ITS | Encounter Summary ---
:1945 Author Organization [facility] Address [address] [place] [address] Care Team Providers Name Role Phone Tello Torres MD Primary Care Provider Reason for Visit Auth/Cert - Closed Specialty Diagnoses / Procedures Referred By Contact Refer red To Contact Surgery Diagnoses Degenerative Joint Disease Rh Periop Services Procedures ARTHROPLASTY HIP [address] [place], [place] [address] Phone: Fax: Referral ID Status Reason Start Date Expiration Date Visits Requ ested Visits Authorized [id number] Closed 1 1 Encounter Details Date Type Department Care Team Description 03/27/2012 Surgery [facility] Jn Izquierdo, Right Total Hip PeriOp Services [address] [place] [address] CONSULTANTS [phone] [facility] [address] [place], [place] [address] (Wo rk) Surgery Details [...] Primary Orthopedics 1 Julio Meraz PA Assisting Day Care Director Authorization 1 Special Needs 6' / 186 [...] up apt. 10-14 days,call to make apt. [phone] Izquierdo Follow up with your [...] Izquierdo MD - 03/30/2012 1:42 PM CDT [facility] Orthopedic Post-Op Progress Note Assessment and Plan: [...] 13.3-17.7 (g/dL) Final ] INR/Prothrombin Time MAYITO IZUQIERDO MD Eleanor Raymundo MD - 03/30/2012 10:40 AM CDT [facility] Hospitalist Progress Note Admission day 03/27/2012 Assessment [...] phenol-menthol (CEPASTAT) lozenge 1-2 lozenge ??? DISCONTINUE QUARTER SUPERVISOR by end of POD1 ??? HYDROmorphone (DILAUDID) [...] Izquierdo MD - 03/29/2012 11:06 AM CDT Mayito Izquierdo MD - 03/29/2012 10:55 AM CDT [facility] Orthopedic Post-Op Progress Note Assessment and Plan: [...] Marino MD - 03/29/2012 9:12 AM CDT [facility] Hospitalist Progress Note Assessment and Plan: Addendum: [...] OT - 03/28/2012 3:38 PM CDT 03/28/12 2842 Living Environment [R] Lives With spouse Living [...] Mobility Skill: Scooting/Bridging, Rehab Eval Level of Albin: Scooting/Bridging minimum assist (75% patients effort) Physical Assist/Nonphysical Assist: Scooting/Bridging 1 person assist Bed Mobility Skill: Sit to Supine Level of Albin: Sit/Supine minimum assist (75% patients effort) Physical Assist/Nonphysical Assist: Sit/Supine verbal cues;supervision;1 person assist Assistive Device: Sit/Supine overhead trapeze Bed Mobility Skill: Supine to Sit Level of Albin: Supine/Sit minimum assist (75% patients effort) Physical [...] Pt lives with in their home in [facility] to enter and within home. Pt has [...] Izquierdo MD - 03/28/2012 10:18 AM CDT [facility] Orthopedic Post-Op Progress Note Assessment and Plan: [...] of Advance Healthcare Directive Reviewed and valid [facility] Progress Note FR Advance Directive Advance Directive found on paper [...] MT: MARÍA ELENA#[id number] Name: COLIN DIAZ Account: [id number] : 1945 Consult Date: 03/28/2012 Document: [id number] cc: Tello Torres MD documented in this encounter OR Notes OR Anesthesia - Mayito Izquierdo MD - 03/31/2012 9:39 PM CDT documented in this encounter Miscellaneous Notes Plan of Care - Bhargavi Sebastian OT - 03/30/2012 4:48 PM CDT Problem: General Rehab Plan of Care Goal: Occupational Therapy Goals The patient and/or their self pay representative will achieve their patient-specific goals related [...] Individualization/Patient-Specific Goal (Adult,OB,Behavioral The patient and/or their self pay representative will achieve their patient-specific goals related [...] Physical Therapy Goals The patient and/or their self pay representative will achieve their patient-specific goals related [...] Occupational Therapy Goals The patient and/or their self pay representative will achieve their patient-specific goals related [...] Physical Therapy Goals The patient and/or their self pay representative will achieve their patient-specific goals related [...] Individualization/Patient-Specific Goal (Adult,OB,Behavioral The patient and/or their self pay representative will achieve their patient-specific goals related [...] Occupational Therapy Goals The patient and/or their self pay representative will achieve their patient-specific goals related [...] Physical Therapy Goals The patient and/or their self pay representative will achieve their patient-specific goals related [...] Individualization/Patient-Specific Goal (Adult,OB,Behavioral The patient and/or their self pay representative will achieve their patient-specific goals related [...] Physical Therapy Goals The patient and/or their self pay representative will achieve their patient-specific goals related [...] Occupational Therapy Goals The patient and/or their self pay representative will achieve their patient-specific goals related [...] Individualization/Patient-Specific Goal (Adult,OB,Behavioral The patient and/or their self pay representative will achieve their patient-specific goals related to the plan of care. The patient-specific goals include: Past medical history only for HTN. CTS: Discharge planning for return home. Large blood loss in surgery 03/27/12, questioning clotting disorder. Outcome: Improving RN: pt vss except for BP dropped the 1st time up with pt, pt passed out came to right away DRAFTER CASTINGS canceled and layed down and was fine [...] Physical Therapy Goals The patient and/or their self pay representative will achieve their patient-specific goals related [...] Individualization/Patient-Specific Goal (Adult,OB,Behavioral The patient and/or their self pay representative will achieve their patient-specific goals related [...] CDT Called answering service for [facility] concerning drop in Hgb and low blood pressure. Plan of Care - Catie Fletcher RN - 03/27/2012 11:17 PM CDT Problem: IP GENERAL POC-ADULT,OB,BEHAVIORAL FVCPM Goal: Individualization/Patient-Specific Goal (Adult,OB,Behavioral The patient and/or their self pay representative will achieve their patient-specific goals related [...] PM CDT Called and left message for fainasusie to ask if he wanted the drain off suction per normal paramters due to EBL drain clamped for now per standing orders. Called back at 1430 follow normal drain parameters Op Note - Mayito Izquierdo MD - 03/27/2012 9:27 AM CDT SURGEON: Mayito Izquierdo MD COMMERCIAL AGENT: MELYSSA Estrella PREOPERATIVE DIAGNOSIS: End-stage degenerative joint [...] the left lateral decubitus position with the [facility] hip positioner. The right hip was sterilely [...] performed. A -5 femoral neck gave excellent jewish of leg length and stability. The wound [...] IZQUIERDO MD MT: [id number] Name: COLIN DIAZ Account: [id number] : 1945 Procedure Date: 03/27/2012 Document: [id number] cc: Tello Torres MD Pharmacy-Admission Medication History [...] (03/30/2012 5:50 AM CDT) Analysis Performed At [facility] Time Signature WBC 8.3 4.0 - 11.0 [place] 10e9[facility] RBC Count 2.96 (L) 4.4 - 5.9 [place] 10e12/L [facility] Hemoglobin 9.6 (L) 13.3 - [place] 17.7 g/dL [facility] LAB Hematocrit 28.1 (L) 40.0 - [place] 53.0 [facility] MCV 95 78 - 100 [facility] LAB MCH 32.4 26.5 - [place] 33.0 [facility] LAB MCHC 34.2 31.5 - [place] 36.5 g/dL [facility] RDW 14.3 10.0 - [place] 15.0 % [facility] Platelet Count 80 (L) 150 - [address] LAB Specimen Anatomical Collection Method Collection Time Receive d Time (Source) Location / / Volume Laterality Blood specimen 03/30/2012 5:50 AM 012 6:05 (specimen) CDT AM CDT Sveta Marino MD LAB - BLOOD ORDERABLES Performing Organization Address City/State/ZIP Code Phon e Number [place] [address] [address] [place], [place] [address] [facility] LAB (ABNORMAL) CBC with platelets (03/29/2012 5:52 AM CDT) Analysis Performed At [facility] Time Signature WBC 9.2 4.0 - 11.0 [place] 10e9[facility] RBC Count 3.06 (L) 4.4 - 5.9 [place] 10e12L [facility] Hemoglobin 10.0 (L) 13.3 - [place] 17.7 g/dL [facility] Hematocrit 29.3 (L) 40.0 - [place] 53.0 % [facility] MCV 96 78 - 100 [facility] LAB MCH 32.7 26.5 - [facility] 33.0 pg [facility] LAB MCHC 34.1 31.5 - [place] 36.5 g/dL [facility] RDW 15.0 10.0 - [place] 15.0 % [facility] Platelet Count 82 (L) 150 - 450 [place] 10e9/L [facility] LAB Specimen Anatomical Collection Method Collection Time Receive d Time (Source) Location / / Volume Laterality Blood specimen 03/29/2012 5:52 AM 012 6:20 (specimen) CDT AM CDT Harika Evans PA-C LAB - BLOOD ORDERABLES Performing Organization Address City/[facility]/ZIP Code Phon e [facility] [address] [place], [place] [address] [facility] LAB (ABNORMAL) Glucose (03/29/2012 5:52 AM CDT) athologist Signature Glucose 101 (H) 60 - 99 [place] mg/dL [facility] LAB Specimen Anatomical Collection Method Collection Time Receive d Time (Source) Location / / Volume Laterality Blood specimen 03/29/2012 5:52 AM 012 6:20 (specimen) CDT AM CDT Mayito Izquierdo MD LAB - BLOOD ORDERABLES Performing Organization Address City/[facility] Phon e Number [place] [address] [address] [place], [place] [address] [facility] LAB (ABNORMAL) Platelet count (03/28/2012 5:10 PM CDT) athologist Signature Platelet Count 95 (L) 150 - 450 [place] 10e9/[facility] LAB Specimen Anatomical Collection Method Collection Time Receive d Time (Source) Location / / Volume Laterality Blood specimen 03/28/2012 5:10 PM 012 5:29 (specimen) CDT PM CDT Harika Evans PA-C LAB - BLOOD ORDERABLES Performing Organization Address City/[facility] Phon e Number [facility] [address] [place], [place] [address] [facility] LAB (ABNORMAL) Hemoglobin (03/28/2012 5:10 PM CDT) athologist Signature Hemoglobin 10.9 (L) 13.3 - 17.7 [place] g/dL [facility] LAB Specimen Anatomical Collection Method Collection Time Receive d Time (Source) Location / / Volume Laterality Blood specimen 03/28/2012 5:10 PM 012 5:29 (specimen) CDT PM CDT Harika Bartonu PA-C LAB - BLOOD ORDERABLES Performing Organization Address City/[facility] Phon e Number [facility] [address] [place], [place] [address] [facility] LAB (ABNORMAL) INR (03/28/2012 10:05 AM CDT) P athologist Signature INR 1.20 (H) 0.86 - 1.14 [facility] LAB Specimen Anatomical Collection Method Collection Time Receive d Time (Source) Location / / Volume Laterality Blood specimen 03/28/2012 10:05 2 (specimen) AM CDT 10:11 AM CDT Harika Bartonu PA-C LAB - BLOOD ORDERABLES Performing Organization Address City/[facility] Phon e [facility] [address] [place], [place] [address] [facility] LAB (ABNORMAL) CBC with platelets (03/28/2012 5:32 AM CDT) Analysis Performed At Patho logist Time Signature WBC 10.5 4.0 - 11.0 [place] 10e9/L [facility] LAB RBC Count 2.56 (L) 4.4 - 5.9 [place] 10e12/L [facility] Hemoglobin 8.5 (L) 13.3 - [place] 17.7 g/dL [facility] Hematocrit 24.6 (L) 40.0 - [facility] 53.0 % [facility] LAB MCV 96 78 - 100 [place] fl [facility] LAB MCH 33.2 (H) 26.5 - [place] 33.0 pg [facility] LAB MCHC 34.6 31.5 - [place] 36.5 g/dL [facility] RDW 14.1 10.0 - [place] 15.0 % [facility] Platelet Count 98 (L) 150 - 450 [place] 10e9/L [facility] LAB Specimen Anatomical Collection Method Collection Time Receive d Time (Source) Location / / Volume Laterality 03/28/2012 5:32 AM 2 9:35 CDT AM CDT Mayito Izquierdo MD LAB - BLOOD ORDERABLES Performing Organization Address City/State/ZIP Code Phon e Titus Bansal [facility] [address] [place], [place] [address] [facility] LAB (ABNORMAL) Basic metabolic panel (03/28/2012 5:32 AM CDT) athologist Signature Sodium 137 133 - 144 [place] mmol/L [facility] LAB Potassium 4.2 3.4 - 5.3 [place] mmol/L [facility] LAB Chloride 107 94 - 109 [place] mmol/L [facility] LAB Carbon Dioxide 24 20 - 32 [place] mmol/L [facility] LAB Anion Gap 6 6 - 17 [place] mmol/L [facility] LAB Glucose 117 (H) 60 - 99 [place] mg/dL [facility] LAB Urea Nitrogen 6 (L) 7 - 30 [place] mg/dL [facility] LAB Creatinine 0.68 0.66 - [facility] 1.25 mg/dL [facility] LAB GFR Estimate >90 >60 [place] mL/min/1.[address] LAB GFR Estimate If >90 >60 [place] Black mL/min/[address] [place] [address] LAB Calcium 7.4 (L) 8.5 - 10.4 [place] mg/dL [facility] LAB Specimen Anatomical Collection Method Collection Time Receive d Time (Source) Location / / Volume Laterality 03/28/2012 5:32 AM 2 9:35 CDT AM CDT Mayito Izquierdo MD LAB - BLOOD ORDERABLES Performing Organization Address City/[facility]/ZIP Code Phon e Titus Bansal [facility] [address] [place], [place] [address] [facility] LAB (ABNORMAL) Hemoglobin (03/28/2012 5:30 AM CDT) athologist Signature Hemoglobin 8.5 (L) 13.3 - 17.7 [facility] g/dL [facility] Comment: Duplicate request Charge credited Specimen Anatomical Collection Method Collection Time Receive d Time (Source) Location / / Volume Laterality Blood specimen 03/28/2012 5:30 AM 012 5:32 (specimen) CDT AM CDT Mayito Izquierdo MD LAB - BLOOD ORDERABLES Performing Organization Address City/[facility]/ZIP Code Phon e Number M [facility] [address] [place], [place] [address] [facility] LAB (ABNORMAL) Glucose (03/28/2012 5:30 AM CDT) P athologist Signature Glucose 117 (H) 60 - 99 [place] mg/dL [facility] LAB Comment: Duplicate request Charge credited Specimen Anatomical Collection Method Collection Time Receive d Time (Source) Location / / Volume Laterality Blood specimen 03/28/2012 5:30 AM 012 5:32 (specimen) CDT AM CDT Mayito Izquierdo MD LAB - BLOOD ORDERABLES Performing Organization Address City/[facility]/ZIP Code Phon e Number M [facility] [address] [place], [place] [address] [facility] LAB Platelets prepare order unit (03/27/2012 9:58 PM CDT) [facility] Method Time Signature Ordered PLT Pheresis [place] Component Type [facility] LAB Units Ordered 1 [facility] LAB Blood Bank Test [place] Comment canceled by [facility] LAB Specimen Anatomical Collection Method Collection Time Receive d Time (Source) Location / / Volume Laterality 03/27/2012 9:58 PM 2 CDT 10:03 PM CDT Mayito Izquierdo MD BLOOD BANK PRODUCT ORDERABLE S Performing Organization Address City/[facility]/ZIP Code Phon e Number M [facility] [address] [place], [place] [address] [facility] LAB X-ray Pelvis w/ unilateral hip right [...] BERNIE Blood component (03/27/2012 8:46 AM CDT) [facility] [employer] Method Time Signature Unit Number [id number] [facility] LAB Blood PlateletPher [place] Component Type esis,LeukoRe [facility] LAB (Part 2) Status of Unit Released to [facility] LAB Specimen Anatomical Collection Method Collection Time Receive d Time (Source) Location / / Volume Laterality 03/27/2012 8:46 AM 2 8:51 CDT AM CDT Mayito Izquierdo MD LABORATORY Performing Organization Address City/[facility]/ZIP Code Phon e Number M [facility] [address] [place], [place] [address] [facility] LAB Platelets prepare order unit (03/27/2012 8:46 AM CDT) [facility] [employer] Method Time Signature Ordered PLT Pheresis [facility] LAB Units Ordered 1 [facility] LAB Specimen Anatomical Collection Method Collection Time Receive d Time (Source) Location / / Volume Laterality 03/27/2012 8:46 AM 2 8:51 CDT AM CDT Mayito Izquierdo MD BLOOD BANK PRODUCT ORDERABLE S Performing Organization Address City/[facility]/ZIP [facility] Phon e Number M [facility] [address] [place], [place] [address] [address] [phone] LAB Blood component (03/27/2012 8:40 AM CDT) [facility] [employer] Method Time Signature Unit Number [id number] [facility] LAB Blood Plasma, [facility] Thawed [facility] LAB Status of Unit Released to [facility] LAB Specimen Anatomical Collection Method Collection Time Receive d Time (Source) Location / / Volume Laterality 03/27/2012 8:40 AM 2 8:45 CDT AM CDT Mayito Izquierdo MD LABORATORY Performing Organization Address City/[facility]/ZIP Code Phon e Number M [facility] [address] [place], [place] [address] [facility] LAB Blood component (03/27/2012 8:40 AM CDT) Patholo gist Method Time Signature Unit Number [id number] [facility] LAB Blood Plasma, [facility] LAB Status of Unit [facility] LAB Specimen Anatomical Collection Method Collection Time Receive d Time (Source) Location / / Volume Laterality 03/27/2012 8:40 AM 2 8:45 CDT AM CDT Mayito Izquierdo MD LABORATORY Performing Organization Address City/[facility]/ZIP Code Phon e Number M [facility] [address] [place], [place] [address] [facility] Plasma prepare order unit (03/27/2012 8:40 AM CDT) P athologist Signature Ordered Plasma [facility] LAB Units Ordered 2 [facility] LAB Specimen Anatomical Collection Method Collection Time Receive d Time (Source) Location / / Volume Laterality 03/27/2012 8:40 AM 2 8:45 CDT AM CDT Mayito Izquierdo MD BLOOD BANK PRODUCT ORDERABLE S Performing Organization Address City/[facility]/ZIP [facility] Phon e Number M [facility] [address] [place], [place] [address] [facility] documented in this encounter Visit Diagnoses [...] LPN)2113 (Given - Provider: Catie Fletcher RN) 09 (Given - Provider: Maia Lee RN)2020 (Given [...] Catie Fletcher, CED)2116 (Given - Provider: Catie Fletcher RN) 0500 (Given - Provider: Hiro brown RN)1315 [...] Starting Tue03/27/12 at 1300, Hold while on QUARTER SUPERVISOR., Post-procedure magnesium hydroxide (MILK OF MAGNESIA) suspension [...] Starting Tue03/27/12 at 1300, Hold while on QUARTER SUPERVISOR or with regular IV opioid dosing., Post-procedure documented in this encounter Care Teams Cancer Program Consultant Relationship Specialty Start Date End Date Tello Torres MD PCP - General Family Practice 03/06/12 [facility] [address] [place] [address] documented as of this encounter
--- OUTSIDE RECORDS SUMMARY | 2022-07-07 14:49 | XMS_ITS | Encounter Summary ---
:1945 Author Organization [place] Address [facility], [address] [facility] [place] [address] Care Team Providers Name Role Phone Tello Torres MD Primary Care Provider Encounter Details Date Type Department Care Team Description 03/27/2012 Anesthesia Event M [facility] Ryder PeriOp [facility] MD [place] [address] [place] [address] ANESTHESIA [id number] [place], [place] [address] (Wo rk) Anesthesia Record Procedure Summary Procedure Name Responsible Anesthesia Start Anesthesia Stop Time Anesthesiologist Time Right Total Hip Rob Ryder MD 03/27/12 0715 2 0905 (Right: Hip) Events Date Time Event Comment 03/27/2012 [...] by 03/30/12 1225 by Left; Lower forearm; oRb Ryder Stewa rt, Dayna Alcohol; Injectable; MD Bosch, RN Tolerated well RETIRED ETT 03/27/12; 0726; Airway 03/27/12 0726 by 03/27/12 0856 by Size: 8; Cuffed; Oral Thyen, Surendra, Surendra Yanez, endotracheal tube; Blade MELISSA BRUCE Type: Hernandez; Blade Size: 2; Place by: mdt; Insertion Attempts: 1; Secured at (cm)to lip: 22 cm; Breath Sounds: Equal, clear and bilateral; End Tidal CO2: Present; Dentition: Intact; Grade View of Cords: 1 Urethral Catheter 03/27/12; 0730; 16 fr 03/27/12 0730 by 2 1131 by Elana Wong RN Rosckes, M onica A, RN Peripheral IV 16 G; Right; Hand; 03/27/12 0837 by 03/30/12 125 4 by Alcohol; None; Tolerated Maia Lee, racheal; blood products RN Closed/Suction Drain 03/27/12; 0839; 1; 03/27/12 0839 by 2 0520 by Right, Midline; Hip; Elana Wong, CED Aksa it, Hiro Accordion; 10 Tajik N RN Incision/Surgical Site 03/27/12; 0844; Midline, 03/27/12 [...] AM CDT Anesthesia Post-Evaluation Note Patient: Colin Diaz Patient Condition Respiratory Function (RR / SpO2 [...] benefits and alternatives discussed with: 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 Possibility of blood products discussed. HGB [...] Pre-procedure documented in this encounter Care Teams House Painter Helper Relationship Specialty Start Date End Date Tello Torres MD PCP - General Family Practice 03/06/12 [facility] [address] [place] [address] documented as of this encounter
--- OUTSIDE RECORDS SUMMARY | 2022-07-07 14:49 | XMS_ITS | Encounter Summary ---
:1945 Author Organization [facility] Address [address] [place] [address] Care Team Providers Name Role Phone Tello Torres MD Primary Care Provider Reason for Visit Auth/Cert - Closed Specialty Diagnoses / Procedures Referred By Contact Refer red To Contact Surgery Diagnoses Degenerative Joint Disease Rh Periop Services Procedures ARTHROPLASTY HIP [address] [place], [place] [phone] Phone: Fax: Referral ID Status Reason Start Date Expiration Date Visits Requ ested Visits Authorized [id number] Closed 1 1 Encounter Details Date Type Department Care Team Description 03/27/2012 - Hospital Encounter [facility]ín tusima post THR 03/30/2012 [place] [address] Inge Donnelly MD (total hip Surgical ORTHOPAEDIC replacement) [address] [facility] [place], [place] [address] [id number] [address] [place] [address] Social History Tobacco Use Types [...] up apt. 10-14 days,call to make apt. [phone] Izquierdo Follow up with your [...] Izquierdo MD - 03/30/2012 1:42 PM CDT [facility] Orthopedic Post-Op Progress Note Assessment [...] Raymundo MD - 03/30/2012 10:40 AM CDT [facility] Hospitalist Progress Note Admission day [...] phenol-menthol (CEPASTAT) lozenge 1-2 lozenge ??? DISCONTINUE MARKETING CLERK by end of POD1 ??? HYDROmorphone (DILAUDID) [...] Izquierdo MD - 03/29/2012 10:55 AM CDT [facility] Orthopedic Post-Op Progress Note Assessment [...] Marino MD - 03/29/2012 9:12 AM CDT [facility] Hospitalist Progress Note Assessment and [...] OT - 03/28/2012 3:38 PM CDT 03/28/12 2944 Living Environment [R] Lives With spouse Living [...] Mobility Skill: Scooting/Bridging, Rehab Eval Level of [place]: Scooting/Bridging minimum assist (75% patients effort) Physical Assist/Nonphysical Assist: Scooting/Bridging 1 person assist Bed Mobility Skill: Sit to Supine Level of [place]: Sit/Supine minimum assist (75% patients effort) Physical Assist/Nonphysical Assist: Sit/Supine verbal cues;supervision;1 person assist Assistive Device: Sit/Supine overhead trapeze Bed Mobility Skill: Supine to Sit Level of [place]: Supine/Sit minimum assist (75% patients effort) Physical [...] Pt lives with in their home in [place], stairs to enter and within home. Pt has been independent with ambulation and ADLs prior to his surgery. A: Based on progress thus far anticipate pt's return home on discharge with assist of as needed. PT/OT to assess for and issue needed DME for ambulation and ADLs adjustment. P: No SW needs identified at this time, available until discharge should needs arise. EIGHT Myaito Izquierdo MD - 03/28/2012 10:18 AM CDT [facility] Orthopedic Post-Op Progress Note Assessment [...] of Advance Healthcare Directive Reviewed and valid [facility] Progress Note [facility] Advance Directive Advance Directive found on paper chart, reviewed and validated. AD has not yet been scanned into patient's electronic chart. documented in this encounter H&P Notes Marce Provider - 03/24/2012 10:43 AM CDT Marce Provider - 03/17/2012 11:06 AM CDT documented [...] ELENA#[id number] Name: COLIN DIAZ MRN: [id number] Account: [id number] : 1945 Consult Date: 03/28/2012 Document: [id number] cc: Tello Torres MD documented in this encounter OR Notes OR Anesthesia - Mayito Izquierdo MD - 03/31/2012 9:39 PM CDT documented in this encounter Miscellaneous Notes Plan of Care - Bhargavi Sebastian OT - 03/30/2012 4:48 PM CDT Problem: General Rehab Plan of Care Goal: Occupational Therapy Goals The patient and/or their pharmaceutical specialty representative will achieve their patient-specific goals related [...] Individualization/Patient-Specific Goal (Adult,OB,Behavioral The patient and/or their pharmaceutical specialty representative will achieve their patient-specific goals related [...] Physical Therapy Goals The patient and/or their pharmaceutical specialty representative will achieve their patient-specific goals related [...] Occupational Therapy Goals The patient and/or their pharmaceutical specialty representative will achieve their patient-specific goals related [...] Physical Therapy Goals The patient and/or their pharmaceutical specialty representative will achieve their patient-specific goals related [...] Individualization/Patient-Specific Goal (Adult,OB,Behavioral The patient and/or their pharmaceutical specialty representative will achieve their patient-specific goals related [...] pt tomorrow Plan of Care - Meena Lemus, OT - 03/29/2012 10:38 AM CDT Problem: General Rehab Plan of Care Goal: Occupational Therapy Goals The patient and/or their pharmaceutical specialty representative will achieve their patient-specific goals related [...] Physical Therapy Goals The patient and/or their pharmaceutical specialty representative will achieve their patient-specific goals related [...] Individualization/Patient-Specific Goal (Adult,OB,Behavioral The patient and/or their pharmaceutical specialty representative will achieve their patient-specific goals related [...] Physical Therapy Goals The patient and/or their pharmaceutical specialty representative will achieve their patient-specific goals related [...] Occupational Therapy Goals The patient and/or their pharmaceutical specialty representative will achieve their patient-specific goals related [...] Individualization/Patient-Specific Goal (Adult,OB,Behavioral The patient and/or their pharmaceutical specialty representative will achieve their patient-specific goals related to the plan of care. The patient-specific goals include: Past medical history only for HTN. CTS: Discharge planning for return home. Large blood loss in surgery 03/27/12, questioning clotting disorder. 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 Plan of Care - Catie Fletcher RN - 03/27/2012 11:17 PM CDT Problem: IP GENERAL POC-ADULT,OB,BEHAVIORAL FVCPM Goal: Individualization/Patient-Specific Goal (Adult,OB,Behavioral The patient and/or their pharmaceutical specialty representative will achieve their patient-specific goals related [...] 9:27 AM CDT SURGEON: Mayito Izquierdo MD AIRCRAFT ENGINE SPECIALIST: MELYSSA Estrella PREOPERATIVE DIAGNOSIS: End-stage degenerative joint [...] the left lateral decubitus position with the Trottre hip positioner. The right hip was sterilely [...] performed. A -5 femoral neck gave excellent muslim of leg length and stability. The wound [...] from general anesthesia. MAYITO IZQUIERDO MD MT: #[id number] Name: COLIN DIAZ Account: [id number] : 1945 Procedure Date: 03/27/2012 Document: [id number] cc: Tello Torres MD Pharmacy-Admission Medication History [...] Time Signature WBC 8.3 4.0 - 11.0 [facility] 10[facility]9/L [facility] RBC Count 2.96 (L) 4.4 - 5.9 [facility] 10e12/L [facility] Hemoglobin 9.6 (L) 13.3 - [facility] 17.7 g/dL [facility] Hematocrit 28.1 (L) 40.0 - [place] 53.0 % [facility] MCV 95 78 - 100 [facility] MCH 32.4 26.5 - [facility] 33.0 [facility] MCHC 34.2 31.5 - [facility] 36.5 g/dL [facility] RDW 14.3 10.0 - [place] 15.0 % [facility] Platelet Count 80 (L) 150 - 450 [place] 10e9/L [facility] Specimen Anatomical Collection Method Collection Time Receive d Time (Source) Location / / Volume Laterality Blood specimen 03/30/2012 5:50 AM 012 6:05 (specimen) CDT AM CDT Sveta Marino MD LAB - BLOOD ORDERABLES Performing Organization Address City/State/[facility] Phon e Number [place] [address], [place] [address] [facility] (ABNORMAL) CBC with platelets (03/29/2012 5:52 AM CDT) Analysis Performed At Patho logist Time Signature WBC 9.2 4.0 - 11.0 [place] 10e9/L [facility] RBC Count 3.06 (L) 4.4 - 5.9 [place] 10e12/L [facility] Hemoglobin 10.0 (L) 13.3 - [place] 17.7 g/dL [facility] Hematocrit 29.3 (L) 40.0 - [place] 53.0 % [facility] MCV 96 78 - 100 [facility] MCH 32.7 26.5 - [facility] 33.0 [facility] LAB MCHC 34.1 31.5 - [place] 36.5 g/dL [facility] RDW 15.0 10.0 - [place] 15.0 % [facility] Platelet Count 82 (L) 150 - 450 [place] 10e9L [facility] Specimen Anatomical Collection Method Collection Time Receive d Time (Source) Location / / Volume Laterality Blood specimen 03/29/2012 5:52 AM 012 6:20 (specimen) CDT AM CDT Harika Evans PA-C LAB - BLOOD ORDERABLES Performing Organization Address City/State/ZIP Code Phon e Number [facility] [address] [place], [place] [address] [facility] LAB (ABNORMAL) Glucose (03/29/2012 5:52 AM CDT) P athologist Signature Glucose 101 (H) 60 - 99 [place] mg/dL [facility] Specimen Anatomical Collection Method Collection Time Receive d Time (Source) Location / / Volume Laterality Blood specimen 03/29/2012 5:52 AM 012 6:20 (specimen) CDT AM CDT Mayito Izquierdo MD LAB - BLOOD ORDERABLES Performing Organization Address [facility]/ZIP [facility] Phon e Number [facility] [address], [place] [address] [facility] LAB (ABNORMAL) Platelet count (03/28/2012 5:10 PM CDT) P athologist Signature Platelet Count 95 (L) 150 - 450 [place] 10e9/L [facility] Specimen Anatomical Collection Method Collection Time Receive d Time (Source) Location / / Volume Laterality Blood specimen 03/28/2012 5:10 PM 012 5:29 (specimen) CDT PM CDT Harika Evans PA-C LAB - BLOOD ORDERABLES Performing Organization Address City/[facility]/ZIP Code Phon e Number [facility] [address], [place] [address] [facility] LAB (ABNORMAL) Hemoglobin (03/28/2012 5:10 PM CDT) P athologist Signature Hemoglobin 10.9 (L) 13.3 - 17.7 [place] g/dL [facility] Specimen Anatomical Collection Method Collection Time Receive d Time (Source) Location / / Volume Laterality Blood specimen 03/28/2012 5:10 PM 012 5:29 (specimen) CDT PM CDT Harika Bartonu PA-C LAB - BLOOD ORDERABLES Performing Organization Address City/[facility]/ZIP Code Phon e Number [facility] [address], [place] [address] [facility] LAB (ABNORMAL) INR (03/28/2012 10:05 AM CDT) P athologist Signature INR 1.20 (H) 0.86 - 1.14 [facility] Specimen Anatomical Collection Method Collection Time Receive d Time (Source) Location / / Volume Laterality Blood specimen 03/28/2012 10:05 2 (specimen) AM CDT 10:11 AM CDT Harika Evans PA-C LAB - BLOOD ORDERABLES Performing Organization Address City/[facility]/ZIP Code Phon e Number [place] [address], [place] [address] [facility] (ABNORMAL) CBC with platelets (03/28/2012 5:32 AM CDT) Analysis Performed At Patho logist Time Signature WBC 10.5 4.0 - 11.0 [place] 10e9/L [facility] RBC Count 2.56 (L) 4.4 - 5.9 [place] 10e12/L [facility] Hemoglobin 8.5 (L) 13.3 - [place] 17.7 g/dL [facility] Hematocrit 24.6 (L) 40.0 - [place] 53.0 % [facility] MCV 96 78 - 100 [facility] MCH 33.2 (H) 26.5 - [place] 33.0 pg [facility] MCHC 34.6 31.5 - [place] 36.5 g/dL [facility] RDW 14.1 10.0 - [place] 15.0 % [facility] Platelet Count 98 (L) 150 - 450 [place] 10e9/L [facility] Specimen Anatomical Collection Method Collection Time Receive d Time (Source) Location / / Volume Laterality 03/28/2012 5:32 AM 2 9:35 CDT AM CDT Mayito Izquierdo MD LAB - BLOOD ORDERABLES Performing Organization Address City/[facility]/ZIP Code Phon e Number [facility] [address], [place] [address] [facility] (ABNORMAL) Basic metabolic panel (03/28/2012 5:32 AM CDT) athologist Signature Sodium 137 133 - 144 [place] mmol/L [facility] Potassium 4.2 3.4 - 5.3 [place] mmol/L [facility] Chloride 107 94 - 109 [place] mmol/L [facility] Carbon Dioxide 24 20 - 32 [place] mmol/L [facility] Anion Gap 6 6 - 17 [place] mmol/L [facility] Glucose 117 (H) 60 - 99 [place] mg/dL [facility] Urea Nitrogen 6 (L) 7 - 30 [place] mg/dL [facility] Creatinine 0.68 0.66 - [facility] 1.25 mg/dL [facility] GFR Estimate >90 >60 [place] mL/min/1.[address] LAB GFR Estimate If >90 >60 [place] Black mL/min/[address] [place] [address] LAB Calcium 7.4 (L) 8.5 - 10.4 [place] mg/dL [facility] Specimen Anatomical Collection Method Collection Time Receive d Time (Source) Location / / Volume Laterality 03/28/2012 5:32 AM 2 9:35 CDT AM CDT Mayito Izquierdo MD LAB - BLOOD ORDERABLES Performing Organization Address City/State/[facility] Code Phon e [facility] [address], [place] [address] [facility] LAB (ABNORMAL) Hemoglobin (03/28/2012 5:30 AM CDT) athologist Signature Hemoglobin 8.5 (L) 13.3 - 17.7 [place] g/dL [facility] Comment: Duplicate request Charge credited Specimen Anatomical Collection Method Collection Time Receive d Time (Source) Location / / Volume Laterality Blood specimen 03/28/2012 5:30 AM 012 5:32 (specimen) CDT AM CDT Mayito Izquierdo MD LAB - BLOOD ORDERABLES Performing Organization Address City/[facility] Phon e Number [facility] [address], [place] [address] [facility] LAB (ABNORMAL) Glucose (03/28/2012 5:30 AM CDT) P athologist Signature Glucose 117 (H) 60 - 99 [place] mg/dL [facility] Comment: Duplicate request Charge credited Specimen Anatomical Collection Method Collection Time Receive d Time (Source) Location / / Volume Laterality Blood specimen 03/28/2012 5:30 AM 012 5:32 (specimen) CDT AM CDT Mayito Izquierdo MD LAB - BLOOD ORDERABLES Performing Organization Address City/[facility]/ZIP Code Phon e Number [facility] [employer] [address], [place] [address] [facility] Platelets prepare order unit (03/27/2012 9:58 PM CDT) [facility] Method Time Signature Ordered PLT Pheresis [place] Component Type [facility] Units Ordered 1 [facility] Blood Bank Test [place] Comment canceled by [facility] LAB Specimen Anatomical Collection Method Collection Time Receive d Time (Source) Location / / Volume Laterality 03/27/2012 9:58 PM 2 CDT 10:03 PM CDT Mayito Izquierdo MD BLOOD BANK PRODUCT ORDERABLE S Performing Organization Address City/[facility]/ZIP Code Phon e Number [facility] [address], [place] [address] [facility] X-ray Pelvis w/ unilateral [...] BERNIE Blood component (03/27/2012 8:46 AM CDT) [facility] Method Time Signature Unit Number [id number] [facility] Blood PlateletPher [place] Component Type esis,LeukoRe [facility] LAB (Part 2) Status of Unit Released to [facility] LAB Specimen Anatomical Collection Method Collection Time Receive d Time (Source) Location / / Volume Laterality 03/27/2012 8:46 AM 2 8:51 CDT AM CDT Mayito Izquierdo MD LABORATORY Performing Organization Address City/[facility]/ZIP Code Phon e Number [facility] [employer] [address], [place] [address] [facility] Platelets prepare order unit (03/27/2012 8:46 AM CDT) [facility] Method Time Signature Ordered PLT Pheresis [facility] Type [facility] Units Ordered 1 [facility] Specimen Anatomical Collection Method Collection Time Receive d Time (Source) Location / / Volume Laterality 03/27/2012 8:46 AM 2 8:51 CDT AM CDT Mayito Izquierdo MD BLOOD BANK PRODUCT ORDERABLE S Performing Organization Address City/[facility]/ZIP Code Phon e Number [facility] [employer] [address], [place] [address] [facility] Blood component (03/27/2012 8:40 AM CDT) [facility] Method Time Signature Unit Number [id number] [facility] Blood Plasma, [place] Component Type Thawed [facility] Status of Unit Released to [facility] LAB Specimen Anatomical Collection Method Collection Time Receive d Time (Source) Location / / Volume Laterality 03/27/2012 8:40 AM 2 8:45 CDT AM CDT Mayito Izquierdo MD LABORATORY Performing Organization Address City/State/ZIP Code Phon e Number [facility] [employer] [address], [place] [address] [facility] Blood component (03/27/2012 8:40 AM CDT) Patholo gist Method Time Signature Unit Number [id number] [facility] Blood Plasma, [facility] Type [facility] LAB Status of Unit [facility] Specimen Anatomical Collection Method Collection Time Receive d Time (Source) Location / / Volume Laterality 03/27/2012 8:40 AM 2 8:45 CDT AM CDT Mayito Izquierdo MD LABORATORY Performing Organization Address City/State/ZIP Code Phon e Number [facility] [employer] [address], [place] [address] [facility] Plasma prepare order unit (03/27/2012 8:40 AM CDT) P athologist Signature Ordered Plasma [facility] LAB Units Ordered 2 [facility] Specimen Anatomical Collection Method Collection Time Receive d Time (Source) Location / / Volume Laterality 03/27/2012 8:40 AM 2 8:45 CDT AM CDT Mayito Izquierdo MD BLOOD BANK PRODUCT ORDERABLE S Performing Organization Address City/[facility]/ZIP [facility] e Number [facility] [address], [place] [address] [facility] documented in this encounter Visit Diagnoses Diagnosis Status post THR (total hip replacement) Hip joint replacement by other means Status post THR (total hip replacement) Hip [...] and then saline lock. Thanks, Starting on Tue03/29/12 at 0915, Until Tue03/29/12 at 1414 atorvastatin [...] 03/28/2012 6:26 AM CDT 125 mL/hr New 03/28/2012 12:14 AM CDT 125 mL/hr docusate [...] mg, Intravenous, EVERY 2 HOURS PRN, severe pain (7-10), or patient unable to take PO, Starting on Tue03/27/12 at 1300, Hold while on MARKETING CLERK., Post-procedure Given 03/27/2012 2:07 PM CDT 0.2 [...] mL, Oral, DAILY PRN, constipation, Starting on Tue03/30/12 at 0958, Shake well. niacin (NIASPAN) CR [...] on Tue03/27/12 at 1300, Hold while on MARKETING CLERK or with regular IV opioid dosing., Post-procedure [...] (LIPITOR) tablet 10 mg (CANCELED) 2113 (Bree nixonen - Provider: Catie Fletcher RN) 2020 (Given [...] Catie Fletcher, CED)2116 (Given - Provider: Catie Fletchre RN) 0500 (Given - Provider: Hiro brown RN)1315 (Canceled Entry - Provider: Orders Generic Provider)2020 (Given - Provider: Smita Jang, CED) 0620 (Given - Provider: Wanda Casiano LPN)1315 [...] chloride 0.9 % BOLUS 500 mL (COMPLETED) 09 (N ew Bag - Provider: Maia Lee [...] Starting Tue03/27/12 at 1300, Hold while on MARKETING CLERK., Post-procedure magnesium hydroxide (MILK OF MAGNESIA) suspension [...] Starting Tue03/27/12 at 1300, Hold while on MARKETING CLERK or with regular IV opioid dosing., Post-procedure documented in this encounter Care Teams Machine Clipper Relationship Specialty Start Date End Date Tello Torres MD PCP - General Family Practice 03/06/12 [facility] [address] [place] [address] documented as of this encounter
--- OUTSIDE RECORDS SUMMARY | 2022-07-07 14:50 | XMS_ITS ---
:1945 Author Care Team Providers Name Role Phone AUSTIN MCCAIN MD Primary Care Provider [phone] Allergies Code Code System Name Reaction Severity Status Onset NKDA ? Medications Name Status Start Date Stop Date ? ? amoxicillin 500 mg capsule Completed ? 06/17 TAKE 4 CAPSULES BY MOUTH 1 HOUR PRIOR TO APPOINTMENT atorvastatin 20 mg tablet Active ? Not av ailable TAKE 1/2 TABLET BY MOUTH AT BEDTIME azithromycin 250 mg tablet Completed ? 07/13 TAKE TWO TABLETS BY MOUTH ON DAY 1 THEN 1 TABLET DAILY FOR 4 MO RE DAYS ciprofloxacin 500 mg tablet Completed ? 10/2021 fluorouracil 5 % topical cream Active ? N ot available APPLY TO AREAS ON THE NECK ONCE DAILY FOR 6 WEEKS imiquimod 5 % topical cream packet Active ? Not available APPLY TO AREA AT BEDTIME TUESDAY-TUESDAY AND WASH OFF I N THE MORNING FOR 6 WEEKS levofloxacin 500 mg tablet Completed ? 06/17 TAKE ONE TABLET BY MOUTH EVERY DAY Orgovyx 120 mg tablet Active ? Not availa ble oxycodone-acetaminophen 5 mg-325 mg tablet Completed ? 06/17/2022 sulfamethoxazole 800 mg-trimethoprim 160 mg tablet Completed ? 12/10/2021 tamsulosin 0.4 mg capsule Active ? Not av ailable TAKE ONE CAPSULE (0.4MG) BY MOUTH EVERY DAY AT BEDTIME Problems Name Status Onset Date Source ? Raised Prostate Specific Antigen Active 09/28/2018 History Malignant Tumor of Prostate Active 06/17/2022 ? Lower Urinary Tract Symptoms Due to Benign Prostatic Active 06/17/2022 ? Hypertrophy Procedures Date Name Performed by ? 11/13/2020 MRI, Prostate, W/wo Contrast [facility] [address] [place] [address] (Work Place) Results Lab Results Date Name Specimen Result Interpretation Description Value Range Status Address ? 06/17/2022 PSA, Serum or ? No observation recorded. ? ? ? Plasma 05/14/2022 PSA, Serum or ? No observation recorded. ? ? ? Plasma 12/10/2021 PSA, Serum or ? PSA, Total 0.67 ng/mL ? ? Plasma 12/10/2021 PSA, Serum or ? No observation recorded. ? ? ? Plasma 07/13/2021 PSA, Serum or ? PSA, Total 12.7 ? ? Plasma 10/07/2020 PSA, Serum or ? No observation recorded. ? ? ? Plasma Past Encounters 06/17/2022 Raised Prostate Specific Antigen; Lower Urinary Tract Symptoms Due to Benign Prostatic Hypertrophy; Malignant Tumor of Prostate Ken eNal MD: [address], [place] [address], Ph. 12/10/2021 Raised Prostate Specific Antigen; Malign ant Tumor of Prostate Tom Bond MD: [address], [place] [address], Ph. 09/11/2021 Malignant Tumor of Prostate Tom Bond MD: [address], [place] [address], Ph. 07/13/2021 Malignant Tumor of Prostate Tom Bond MD: [address], [place] [address], Ph. 07/13/2021 Tom Bond MD: [address], [place] [address], Ph. 02/19/2021 Malignant Tumor of Prostate Tom Bond MD: [address], [place] [address], Ph. 01/22/2021 Raised Prostate Specific Antigen; Benign Prostatic Hyperplasia with Outflow Obstruction; Malignant Tumor of Prostate Tom Bond MD: [address], [place] [address], Ph. Social History Tobacco Smoking Status Former [...] free 05/20/2009 06/26/2010 06/10/2011 04/26/2012 05/23/2013 novel [id number] 07/04/2009 pneumococcal conjugate PCV 13 12/06/2014 pneumococcal polysaccharide PPV23 10/22/2009 11/20/2010 Tdap 10/22/2009 04/11/2019 zoster live 09/13/2007 zoster recombinant 12/17/2020 02/18/2021 Plan of Care Patient Instructions Will f/u with Dr. Bnod as planned Reminders Provider Appointments None recorded. ? ? Lab None recorded. ? ? Referral None recorded. ? ? Procedures None recorded. ? ? Surgeries None recorded. ? ? Imaging None recorded. ? ? Vitals 06/17/2022 09:30AM NEW PATIENT 30 Height Weight BMI 6 ft 193 lbs 26.2 kg/m2 12/10/2021 02:45PM ESTABLISHED 15 Height Weight BMI [...]
--- OUTSIDE RECORDS SUMMARY | 2022-07-07 14:50 | XMS_ITS | Clinical Summary ---
:1945 Author Organization [facility] [place] [address] Care Team Providers Name Role Phone Narendra Torres MD [facility] Un[facility] Allergies No known active allergies [...] Comments Blood Pressure 147/88 09/08/2021 3:15 PM NURSING DIRECTOR Pulse 84 09/08/2021 3:15 PM NURSING DIRECTOR Temperature 36.5 ??C (97.7 ??F) 09/08/2021 2:15 PM NURSING DIRECTOR Respiratory Rate 18 09/08/2021 3:15 PM NURSING DIRECTOR Oxygen Saturation 98% 09/08/2021 2:15 PM NURSING DIRECTOR Inhaled Oxygen Concentration - - Weight 88.5 kg (195 lb) 09/08/2021 9:13 AM NURSING DIRECTOR Height 182.9 cm (6') 09/08/2021 9:13 AM NURSING DIRECTOR Body Mass Index 26.45 09/08/2021 9:13 AM NURSING DIRECTOR Plan of Treatment Health Maintenance Due Date [...] PCV) COVID-19 vaccine series (4 - Booster 08/26/2021 07/01/2021, 10/31/2020, for Moderna series) 10/03/2020 Influenza for age 65+ 04/15/2022 Results Not on filefrom Last 3 Months Insurance Payer Benefit Plan / Subscriber ID Effective Dates Phone Addre ss Type Group MEDICARE PART A MEDICARE PART A [id number] 2011-Present ATTN: CLAIMS - HB USE ONLY HB ONLY [address] [place] [address] UCARE JONAH MEDICARE [id number] 2019-Present [address] [place] [address] Advance Directives Latest Code Status on File Code Status Date Activated Date Inactivated Comments Full Code 09/08/2021 8:53 AM 09/09/2021 2:30 AM Code Status Discussion: Not Discussed Care Teams Last Chalker Relationship Specialty Start Date End Date Narendra Torres MD PCP - General Family Practice 08/19/21 [address] [place] [address] Tom Bond MD Surgery - Urology 09/07/21
--- OUTSIDE RECORDS SUMMARY | 2022-07-07 14:50 | XMS_ITS | Encounter Summary ---
:1945 Author Care Team Providers Name Role Phone eTllo Torres MD Primary Care Provider [phone] Reason for Visit Prostate Cancer Assessment and Plan Assessment Note 76M s/p cryotherapy for cT1c Harry 3+ 3=6 prostate cancer 08/2021 - can start flomax - excellent PSA response to prostate cry otherapy/orgovyx - can stop orgovyx, now has completed 1 year - f/u 6 months with PSA 1. Raised prostate specific antigen 2. Lower urinary tract symptoms due to benign prostatic hypertrophy 3. Malignant tumor of prostate Discussion Note: None recorded.Patient educational handouts: No information available. Plan of Care Reminders Provider Appointments [facility] 12/16/2022 10:00AM [facility] ? Established 12/16/2022 10:20AM Ken Neal MD Lab None recorded. ? ? Referral None recorded. ? ? Procedures None recorded. ? ? Surgeries None recorded. ? ? Imaging None recorded. ? ? Medications Name Start Date ? ? atorvastatin 20 mg tablet ? TAKE 1/2 TABLET BY MOUTH AT BEDTIME fluorouracil 5 % topical cream ? APPLY TO AREAS ON THE NECK ONCE DAILY FOR 6 WEEKS imiquimod 5 % topical cream packet ? APPLY TO AREA AT BEDTIME TUESDAY-TUESDAY AND WASH OFF I N THE MORNING FOR 6 WEEKS Orgovyx 120 mg tablet ? Take 1 tablet every day by oral route. tamsulosin 0.4 mg capsule ? TAKE ONE CAPSULE (0.4MG) BY MOUTH EVERY DAY AT BEDTIM E Medications Administered None recorded. Vitals Height Weight BMI 6 ft 193 lbs 26.2 kg/m2 Results Lab Results None recorded. Allergies Code Code System Name Reaction Severity Onset NKDA ? ? ? Problems Name Status Onset Date Source ? Raised Prostate Specific Antigen Active 09/28/2018 History Malignant Tumor of Prostate Active 06/17/2022 ? Lower Urinary Tract Symptoms Due to Benign Prostatic Active 06/17/2022 ? Hypertrophy Procedures None recorded. Vaccine List Vaccine Type COVID-19, mRNA, LNP-S, PF, 100 mcg/0.5 m L dose (Moderna) 10/03/2020 10/31/2020 07/01/2021 Hep A, adult 10/28/2005 influenza, high dose seasonal 05/27/2015 05/18/2016 05/16/2017 06/03/2018 influenza, high-dose, quadrivalent 04/29/2020 influenza, recombinant, quadrIvalent,inj ectable, preservative free 06/18/2019 influenza, seasonal, injectable 06/24/2008 06/25/2014 influenza, seasonal, injectable, preserv ative free 05/20/2009 06/26/2010 06/10/2011 04/26/2012 05/23/2013 novel [id number] 07/04/2009 pneumococcal conjugate PCV 13 12/06/2014 pneumococcal polysaccharide PPV23 10/22/2009 11/20/2010 Tdap 10/22/2009 04/11/2019 zoster live 09/13/2007 zoster recombinant 12/17/2020 02/18/2021 Social History Tobacco Smoking Status Former Smoker What was the date of your most recent tobacco 06/17/2022 screening? Do you or have you ever used any other forms of N tobacco or nicotine? When did you quit smoking? 17+yearssincelastcigarette Family History Relation Problem Onset Age of Age Notes Mother Family history of cardiac (No Information) N/A (No Notes) disorder Father Family history of cardiac (No Information) N/A (No Notes) disorder Functional Status Unknown. Past Encounters 06/17/2022 Raised Prostate Specific Antigen; Lower Urinary Tract Symptoms Due to Benign Prostatic Hypertrophy; Malignant Tumor of Prostate Ken Neal MD: [address] [place] [address], Ph. History of Present Illness Note: <div>76M s/p cryotherapy for cT1c Harry 3+3=6 prostate cancer 08/2021</div><div>
</div><div> </div><div> </div><div> </div><div> </div><div>Biopsy (12-30-20) 50% of [place] 3+3 from the right mid cores.</div>& lt;div>
</div><div>Also orgovyx x 1 year. </div><div>
</div><div> </div><div> </div><div> </div><div> </div><div>PSA results</div><div>07/13/21 12.7</div><div>12/10/21 0.67</div><div>05/14/22 0.36</div><div>
</div><div>Orgovyx x 1 year</div><div>
</div><div>FOS ok, PVR 110 ml today</div><div>
</div><div>Will start flomax next week</div><div>
</div> Review of Systems ? Comprehensive General Adult ROS Reported By: Patient Constitutional: Constitutional: no fever, no chills Eyes: Eyes: no dry eyes, no vision change, no irritation Endocrine: Endocrine: no fatigue, no in creased thirst Cardiovascular: Cardiovascular: no chest yasmin n, no palpitations Integumentary: Skin: no rashes, no change i n skin color Respiratory: Respiratory: no wheezing, no cough, no shortness of breath Gastrointestinal: Gastrointestinal: no abdomin al pain, no nausea, no vomiting, no constipation, no GERD Musculoskeletal: Musculoskeletal: no neck yasmin n, no back pain Neurologic: Neurologic: no tremor, no di zziness, no numbness, no headaches Genitourinary: Genitourinary: no incontinen ce, no difficulty urinating ENMT: Ears: no ear pain. Mouth/Thr oat: no sore throat Allergic/Immunologic: Allergy/Immunologic: no itch ing, no hives Hematologic/Lymphatic: Hematologic/Lymphatic no swo llen glands, no excessive bleeding Psychiatric: Psych: no hallucinations, (n ormal) sleep disturbances: mismatch of sleep / wake anu edule with lifestyle needs Physical Exam ? Notes: <div>General: No acute distr ess, well developed/well nourished</div><div>Resp: Respirations nonlabored, no audible wheeze, symmetric</div><div>Psych: normal mood and affect</div><div><b r></div><div>
</div>
--- OUTSIDE RECORDS SUMMARY | 2022-07-09 07:09 | XMS_ITS | Clinical Summary ---
:1945 Author Organization [facility] Address [address] [place] [address]. [place] [address] Care Team Providers Name Role Phone Tello [...] Previously signed by patient and notarized by [employer]. 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 Device Shelf Model / Identifier Expiration Date Ser ial / Lot Imp Head Femoral Strk [employer] Delta Ceramic 36mm -5mm Right: 11/25/2016 [id number] / Implanted: Qty: 1 on 03/27/2012 by Andrzej Ricks MD at [facility] / [id number] Insurance Payer Benefit Plan / Subscriber ID Effective Dates Phone Addre ss Type Group UCARE UCARE MEDICARE [id number] 2019-Present [phone] [address] [place] [address] Advance Directives For more information, please contact: [phone] Latest Code Status on File Code Status Date Activated Date Inactivated Comments Full Code 03/29/2012 10:59 AM 04/04/2022 1:21 PM Code Status History Code Status Date Activated Date Inactivated Comments Full Code 03/27/2012 1:01 PM 03/29/2012 10:59 AM Care Teams Eyelet Operator Relationship Specialty Start Date End Date Tello Torres MD PCP - General Family Practice 03/06/12 [facility] [address] [place] [facility] [address]
--- OUTSIDE RECORDS SUMMARY | 2022-07-09 07:09 | XMS_ITS | Encounter Summary ---
:1945 Author Organization [place] Address [address] [place] [address] Care Team Providers Name Role Phone Tlelo Torres MD Primary Care Provider Reason for Visit Auth/Cert - Closed Specialty Diagnoses / Procedures Referred By Contact Refer red To Contact Surgery Diagnoses Degenerative Joint Disease Rh Periop Services Procedures ARTHROPLASTY HIP [address] [place], [place] [address] Phone: Fax: Referral ID Status Reason Start Date Expiration Date Visits Requ ested Visits Authorized [id number] Closed 1 1 Encounter Details Date Type Department Care Team Description 03/27/2012 - Hospital Encounter [facility] BeauraulsusieMartín tusima post THR 03/30/2012 [place] [address] Inge Donnelly MD (total hip Surgical ORTHOPAEDIC replacement) [address] [employer] [place], [place] [address] [address] [address] [place] [address] Social History Tobacco Use Types [...] up apt. 10-14 days,call to make apt. [phone] Izquierdo Follow up with your [...] Izquierdo MD - 03/30/2012 1:42 PM CDT [facility] Orthopedic Post-Op Progress Note Assessment and [...] Raymundo MD - 03/30/2012 10:40 AM CDT [facility] Hospitalist Progress Note Admission day 03/27/2012 [...] phenol-menthol (CEPASTAT) lozenge 1-2 lozenge ??? DISCONTINUE [facility] by end of POD1 ??? HYDROmorphone (DILAUDID) [...] Izquierdo MD - 03/29/2012 10:55 AM CDT [facility] Post-Op Progress Note Assessment and [...] Marino MD - 03/29/2012 9:12 AM CDT [facility] Hospitalist Progress Note Assessment and Plan: [...] OT - 03/28/2012 3:38 PM CDT 03/28/12 [id number] Living Environment [R] Lives With spouse Living [...] Mobility Skill: Scooting/Bridging, Rehab Eval Level of [place]: Scooting/Bridging minimum assist (75% patients effort) Physical Assist/Nonphysical Assist: Scooting/Bridging 1 person assist Bed Mobility Skill: Sit to Supine Level of [place]: Sit/Supine minimum assist (75% patients effort) Physical Assist/Nonphysical Assist: Sit/Supine verbal cues;supervision;1 person assist Assistive Device: Sit/Supine overhead trapeze Bed Mobility Skill: Supine to Sit Level of [place]: Supine/Sit minimum assist (75% patients effort) Physical [...] Pt lives with in their home in [place], stairs to enter and within home. Pt [...] Izquierdo MD - 03/28/2012 10:18 AM CDT [facility] Post-Op Progress Note Assessment and [...] Final ] INR/Prothrombin Time MAYITO IZQUIERDO MD Cleoptara Torres, PT - 03/28/2012 8:57 AM CDT [...] of Advance Healthcare Directive Reviewed and valid [facility] Progress Note [facility] Advance Directive Advance Directive found on paper [...] ELENA#[id number] Name: COLIN DIAZ MRN: [id number] Account: [id number] : 1945 Consult Date: 03/28/2012 Document: [id number] cc: Tello Torres MD documented in this encounter OR Notes OR Anesthesia - Mayito Izquierdo MD - 03/31/2012 9:39 PM CDT documented in this encounter Miscellaneous Notes Plan of Care - Bhargavi Sebastian OT - 03/30/2012 4:48 PM CDT Problem: General Rehab Plan of Care Goal: Occupational Therapy Goals The patient and/or their desk representative will achieve their patient-specific goals related [...] Individualization/Patient-Specific Goal (Adult,OB,Behavioral The patient and/or their desk representative will achieve their patient-specific goals related [...] Physical Therapy Goals The patient and/or their desk representative will achieve their patient-specific goals related [...] Occupational Therapy Goals The patient and/or their desk representative will achieve their patient-specific goals related [...] Physical Therapy Goals The patient and/or their desk representative will achieve their patient-specific goals related [...] Individualization/Patient-Specific Goal (Adult,OB,Behavioral The patient and/or their desk representative will achieve their patient-specific goals related [...] Occupational Therapy Goals The patient and/or their desk representative will achieve their patient-specific goals related [...] Physical Therapy Goals The patient and/or their desk representative will achieve their patient-specific goals related [...] Individualization/Patient-Specific Goal (Adult,OB,Behavioral The patient and/or their desk representative will achieve their patient-specific goals related [...] Physical Therapy Goals The patient and/or their desk representative will achieve their patient-specific goals related [...] Occupational Therapy Goals The patient and/or their desk representative will achieve their patient-specific goals related [...] to see daily. Plan of Care - Maai Lee RN - 03/28/2012 2:53 PM CDT Problem: IP GENERAL POC-ADULT,OB,BEHAVIORAL FVCPM Goal: Individualization/Patient-Specific Goal (Adult,OB,Behavioral The patient and/or their desk representative will achieve their patient-specific goals related to the plan of care. The patient-specific goals include: Past medical history only for HTN. CTS: Discharge planning for return home. Large blood loss in surgery 03/27/12, questioning clotting disorder. Outcome: Improving RN: pt vss except for BP dropped the 1st time up with pt, pt passed out came to right away BUSINESS DEVELOPMENT [employer]OCIATE canceled and layed down and was fine [...] Physical Therapy Goals The patient and/or their desk representative will achieve their patient-specific goals related [...] Individualization/Patient-Specific Goal (Adult,OB,Behavioral The patient and/or their desk representative will achieve their patient-specific goals related [...] 5:45 AM CDT [facility] drop in Hgb and low blood pressure. Plan of Care - Catie Fletcher RN - 03/27/2012 11:17 PM CDT Problem: IP GENERAL POC-ADULT,OB,BEHAVIORAL FVCPM Goal: Individualization/Patient-Specific Goal (Adult,OB,Behavioral The patient and/or their desk representative will achieve their patient-specific goals related [...] 9:27 AM CDT SURGEON: Mayito Izquierdo MD ALUMINUM SIDING MECHANIC: MELYSSA Estrella PREOPERATIVE DIAGNOSIS: End-stage degenerative joint [...] performed. A -5 femoral neck gave excellent episcopalian of leg length and stability. The wound [...] MD MT: #[id number] Name: COLIN DIAZ Account: [id number] : 1945 Procedure Date: 03/27/2012 Document: [id number] cc: Tello Torres MD Pharmacy-Admission Medication History [...] Time Signature WBC 8.3 4.0 - 11.0 [facility] 10e9/L [facility] RBC Count 2.96 (L) 4.4 - 5.9 [facility] 10e12/L [facility] Hemoglobin 9.6 (L) 13.3 - [facility] 17.7 g/dL [facility] Hematocrit 28.1 (L) 40.0 - [place] 53.0 % [facility] MCV 95 78 - 100 [facility] MCH 32.4 26.5 - [facility] 33.0 [facility] MCHC 34.2 31.5 - [facility] 36.5 g/dL [facility] RDW 14.3 10.0 - [place] 15.0 % [facility] Platelet Count 80 (L) 150 - 450 [place] 10e9/L [facility] Specimen Anatomical Collection Method Collection Time Receive d Time (Source) Location / / Volume Laterality Blood specimen 03/30/2012 5:50 AM 012 6:05 (specimen) CDT AM CDT Sveta Marino MD LAB - BLOOD ORDERABLES Performing Organization Address City/State/[facility] Phon e Number [place] [address] [place], [place] [address] [facility] (ABNORMAL) CBC with platelets (03/29/2012 5:52 AM CDT) Analysis Performed At Patho logist Time Signature WBC 9.2 4.0 - 11.0 [place] 10e9/L [facility] RBC Count 3.06 (L) 4.4 - 5.9 [place] 10e12/L [facility] Hemoglobin 10.0 (L) 13.3 - [place] 17.7 g/dL [facility] Hematocrit 29.3 (L) 40.0 - [place] 53.0 % [facility] MCV 96 78 - 100 [facility] MCH 32.7 26.5 - [facility] 33.0 [facility] MCHC 34.1 31.5 - [place] 36.5 g/dL [facility] RDW 15.0 10.0 - [place] 15.0 % [facility] Platelet Count 82 (L) 150 - 450 [place] 10e9L [facility] Specimen Anatomical Collection Method Collection Time Receive d Time (Source) Location / / Volume Laterality Blood specimen 03/29/2012 5:52 AM 012 6:20 (specimen) CDT AM CDT Harika Evans PA-C LAB - BLOOD ORDERABLES Performing Organization Address City/State/ZIP Code Phon e Number Rolf [facility] [address] [place], [place] [address] [facility] (ABNORMAL) Glucose (03/29/2012 5:52 AM CDT) P athologist Signature Glucose 101 (H) 60 - 99 [place] mg/dL [facility] Specimen Anatomical Collection Method Collection Time Receive d Time (Source) Location / / Volume Laterality Blood specimen 03/29/2012 5:52 AM 012 6:20 (specimen) CDT AM CDT Mayito Izquierdo MD LAB - BLOOD ORDERABLES Performing Organization Address [facility]/ZIP [facility] Phon e Number [facility] [address], [place] [address] [facility] (ABNORMAL) Platelet count (03/28/2012 5:10 PM CDT) P athologist Signature Platelet Count 95 (L) 150 - 450 [place] 10e9/L [facility] Specimen Anatomical Collection Method Collection Time Receive d Time (Source) Location / / Volume Laterality Blood specimen 03/28/2012 5:10 PM 012 5:29 (specimen) CDT PM CDT Harika Evans PA-C LAB - BLOOD ORDERABLES Performing Organization Address City/[facility]/ZIP Code Phon e Number [facility] [address] [place], [place] [address] [facility] (ABNORMAL) Hemoglobin (03/28/2012 5:10 PM CDT) P athologist Signature Hemoglobin 10.9 (L) 13.3 - 17.7 [place] g/dL [facility] Specimen Anatomical Collection Method Collection Time Receive d Time (Source) Location / / Volume Laterality Blood specimen 03/28/2012 5:10 PM 012 5:29 (specimen) CDT PM CDT Harika Bartonu PA-C LAB - BLOOD ORDERABLES Performing Organization Address City/[facility]/ZIP Code Phon e Number [facility] [address], [place] [address] [facility] (ABNORMAL) INR (03/28/2012 10:05 AM CDT) P athologist Signature INR 1.20 (H) 0.86 - 1.14 [facility] Specimen Anatomical Collection Method Collection Time Receive d Time (Source) Location / / Volume Laterality Blood specimen 03/28/2012 10:05 2 (specimen) AM CDT 10:11 AM CDT Harika Evans PA-C LAB - BLOOD ORDERABLES Performing Organization Address City/[facility]/ZIP Code Phon e Number [place] [address] [place], [place] [address] [facility] (ABNORMAL) CBC with platelets (03/28/2012 5:32 AM CDT) Analysis Performed At Patho logist Time Signature WBC 10.5 4.0 - 11.0 [place] 10e9/L [facility] RBC Count 2.56 (L) 4.4 - 5.9 [place] 10e12/L [facility] Hemoglobin 8.5 (L) 13.3 - [place] 17.7 g/dL [facility] Hematocrit 24.6 (L) 40.0 - [place] 53.0 % [facility] MCV 96 78 - 100 [facility] MCH 33.2 (H) 26.5 - [place] 33.0 pg [facility] MCHC 34.6 31.5 - [place] 36.5 g/dL [facility] RDW 14.1 10.0 - [place] 15.0 % [facility] Platelet Count 98 (L) 150 - 450 [place] 10e9/L [facility] Specimen Anatomical Collection Method Collection Time Receive d Time (Source) Location / / Volume Laterality 03/28/2012 5:32 AM 2 9:35 CDT AM CDT Mayito Izquierdo MD LAB - BLOOD ORDERABLES Performing Organization Address City/[facility]/ZIP Code Phon e Number [facility] [address], [place] [address] [facility] (ABNORMAL) Basic metabolic panel (03/28/2012 5:32 AM CDT) athologist Signature Sodium 137 133 - 144 [place] mmol/L [facility] Potassium 4.2 3.4 - 5.3 [place] mmol/L [facility] Chloride 107 94 - 109 [place] mmol/L [facility] Carbon Dioxide 24 20 - 32 [place] mmol/L [facility] Anion Gap 6 6 - 17 [place] mmol/L [facility] Glucose 117 (H) 60 - 99 [place] mg/dL [facility] Urea Nitrogen 6 (L) 7 - 30 [place] mg/dL [facility] Creatinine 0.68 0.66 - [facility] 1.25 mg/dL [facility] GFR Estimate >90 >60 [place] mL/min/1.[address] LAB GFR Estimate If >90 >60 [place] Black mL/min/1.[address] [place] [address] LAB Calcium 7.4 (L) 8.5 - 10.4 [place] mg/dL [facility] Specimen Anatomical Collection Method Collection Time Receive d Time (Source) Location / / Volume Laterality 03/28/2012 5:32 AM 2 9:35 CDT AM CDT Mayito Izquierdo MD LAB - BLOOD ORDERABLES Performing Organization Address City/State/[facility] Code Phon e [facility] [address], [place] [address] [facility] (ABNORMAL) Hemoglobin (03/28/2012 5:30 AM CDT) athologist Signature Hemoglobin 8.5 (L) 13.3 - 17.7 [place] g/dL [facility] Comment: Duplicate request Charge credited Specimen Anatomical Collection Method Collection Time Receive d Time (Source) Location / / Volume Laterality Blood specimen 03/28/2012 5:30 AM 012 5:32 (specimen) CDT AM CDT Mayito Izquierdo MD LAB - BLOOD ORDERABLES Performing Organization Address City/[facility] Phon e Number [facility] [address], [place] [address] [facility] (ABNORMAL) Glucose (03/28/2012 5:30 AM CDT) P athologist Signature Glucose 117 (H) 60 - 99 [place] mg/dL [facility] Comment: Duplicate request Charge credited Specimen Anatomical Collection Method Collection Time Receive d Time (Source) Location / / Volume Laterality Blood specimen 03/28/2012 5:30 AM 012 5:32 (specimen) CDT AM CDT Mayito Izquierdo MD LAB - BLOOD ORDERABLES Performing Organization Address City/[facility]/ZIP Code Phon e Number M [facility] [address], [place] [address] [facility] Platelets prepare order unit (03/27/2012 9:58 PM CDT) [facility] Method Time Signature Ordered PLT Pheresis [place] Component Type [facility] Units Ordered 1 [facility] Blood Bank Test [place] Comment canceled by [facility] Specimen Anatomical Collection Method Collection Time Receive d Time (Source) Location / / Volume Laterality 03/27/2012 9:58 PM 2 CDT 10:03 PM CDT Mayito Izquierdo MD BLOOD BANK PRODUCT ORDERABLE S Performing Organization Address City/[facility]/ZIP Code Phon e Number M [facility] [address], [place] [address] [facility] X-ray Pelvis w/ unilateral hip [...] BERNIE Blood component (03/27/2012 8:46 AM CDT) [facility] Method Time Signature Unit Number [id number] [facility] Blood PlateletPher [place] Component Type esis,LeukoRe [facility] LAB (Part 2) Status of Unit Released to [facility] LAB Specimen Anatomical Collection Method Collection Time Receive d Time (Source) Location / / Volume Laterality 03/27/2012 8:46 AM 2 8:51 CDT AM CDT Mayito Izquierdo MD LABORATORY Performing Organization Address City/[facility]/ZIP Code Phon e Number M [facility] [address], [place] [address] [facility] Platelets prepare order unit (03/27/2012 8:46 AM CDT) [facility] Method Time Signature Ordered PLT Pheresis [facility] Type [facility] Units Ordered 1 [facility] Specimen Anatomical Collection Method Collection Time Receive d Time (Source) Location / / Volume Laterality 03/27/2012 8:46 AM 2 8:51 CDT AM CDT Mayito Izquierdo MD BLOOD BANK PRODUCT ORDERABLE S Performing Organization Address City/[facility]/ZIP Code Phon e Number M [facility] [address], [place] [address] [facility] Blood component (03/27/2012 8:40 AM CDT) [facility] Method Time Signature Unit Number [id number] [facility] Blood Plasma, [place] Component Type Thawed [facility] Status of Unit Released to [facility] LAB Specimen Anatomical Collection Method Collection Time Receive d Time (Source) Location / / Volume Laterality 03/27/2012 8:40 AM 2 8:45 CDT AM CDT Mayito Izquierdo MD LABORATORY Performing Organization Address City/State/ZIP Code Phon e Number M [facility] [address], [place] [address] [facility] Blood component (03/27/2012 8:40 AM CDT) Patholo gist Method Time Signature Unit Number [id number] [facility] Blood Plasma, [facility] Type [facility] LAB Status of Unit [facility] Specimen Anatomical Collection Method Collection Time Receive d Time (Source) Location / / Volume Laterality 03/27/2012 8:40 AM 2 8:45 CDT AM CDT Mayito Izquierdo MD LABORATORY Performing Organization Address City/State/ZIP Code Phon e Number M [facility] [address], [place] [address] [facility] Plasma prepare order unit (03/27/2012 8:40 AM CDT) P athologist Signature Ordered Plasma [facility] LAB Units Ordered 2 [facility] Specimen Anatomical Collection Method Collection Time Receive d Time (Source) Location / / Volume Laterality 03/27/2012 8:40 AM 2 8:45 CDT AM CDT Mayito Izquierdo MD BLOOD BANK PRODUCT ORDERABLE S Performing Organization Address City/[facility]/ZIP [place] e Number [facility] [address], [place] [address] [facility] documented in this encounter Visit [...] on Tue03/27/12 at 1300, Hold while on [employer]., Post-procedure Given 03/27/2012 2:07 PM CDT 0.2 [...] on Tue03/27/12 at 1300, Hold while on [employer] or with regular IV opioid dosing., Post-procedure [...] Harriett Weaver LPN)2240 (Given - Provider: Catie Fltecher RN - Comment: per pt. request) 904 [...] Starting Tue03/27/12 at 1300, Hold while on [employer]., Post-procedure magnesium hydroxide (MILK OF MAGNESIA) suspension [...] Starting Tue03/27/12 at 1300, Hold while on [employer] or with regular IV opioid dosing., Post-procedure documented in this encounter Care Teams Exam Proctor Relationship Specialty Start Date End Date Tello Torres MD PCP - General Family Practice 03/06/12 [facility] [address] [place] [address] documented as of this encounter
--- OUTSIDE RECORDS SUMMARY | 2022-07-09 07:09 | XMS_ITS | Encounter Summary ---
:1945 Author Organization [place] Address [facility] [place] [address] Care Team Providers Name Role Phone Tello Torres MD Primary Care Provider Encounter Details Date Type Department Care Team Description 03/27/2012 Anesthesia Event M [facility] MD [place] [address] [place] [address] ANESTHESIA [phone] [place], [place] [address] (Wo rk) Anesthesia Record [...] 03/30/12 1225 by Left; Lower forearm; Rob Ryder Stewa rt, Dayna Alcohol; Injectable; MD [...] Wong, CED Aksa it, Hiro Accordion; 10 Haitian N RN Incision/Surgical Site 03/27/12; 0844; Midline, [...] benefits and alternatives discussed with: patient or footwear sales representative. Possibility of blood products discussed. [...] Pre-procedure documented in this encounter Care Teams Home Child Care Provider Relationship Specialty Start Date End Date Tello Torres MD PCP - General Family Practice 03/06/12 [facility] [address] [place] [address] documented as of this encounter
--- OUTSIDE RECORDS SUMMARY | 2022-07-09 07:09 | XMS_ITS | Encounter Summary ---
:1945 Author Organization [place] Address [address] [place] [address]. [place] [address] Care Team Providers Name Role Phone Tello [...] on filedocumented in this encounter Care Teams Competitive Intelligence Manager Relationship Specialty Start Date End Date Tello Torres MD PCP - General Family Practice 03/06/12 [facility] [address] [place] [address] documented as of this encounter
--- OUTSIDE RECORDS SUMMARY | 2022-07-09 07:09 | XMS_ITS | Encounter Summary ---
:1945 Author Organization [facility] Address [address] [place] [address]. [place] [address] Care Team Providers Name Role Phone Tello Torres MD Primary Care Provider Reason for Visit Reason Comments Shoulder Pain Encounter Details Date Type Department Care Team Description 04/04/2022 Emergency [facility] Clayton Bullock MD Acute pain of both shoulders; [facility] Emergency Dep t EMERGENCY PHYSICIANS Other fatigue [address] [place], [place] [address] [employer] [id number] [place] [address] [place], [place] [id number] (Wo rk) Social History Tobacco Use Types [...] documented in this encounter Discharge Instructions Discharge InstructionseBnjamin Bullock MD - 04/04/2022 3:25 PM CDT [...] deviation, abnormal ECG. Ventricular rate 92 bpm. NJ interval 154 ms. QRS duration 88 ms. [...] the Xpert Xpress SARS-CoV-2 Assay on the [employer]. A dditional information about this [...] COVID-19. This test was validated by the [facility]. This laboratory is certified under the Clinical Laboratory Improvement Amendments of 1988 (CLIA-88) as qualified to perform high complexity laboratory testing. Benjamin Bullock MD LAB - MICRO GENERAL ORDERABL ES Performing Organization Address City/[facility]/ZIP Code [place] [address] Care Lab [address] Lab (1st floor, no room number) [...] Organization Address City/[facility]/ZIP Code [place] [address] Care Lab [address] Lab (1st floor, no room number) [...] City/State/ZIP Code Ph[place] [address] Care Lab [address] Lab (1st floor, no room number) (ABNORMAL) CBC with platelets and differential (04/04/2022 2:13 PM CDT) [facility] Method Time Signature WBC Count 7.3 [...] Address City/State/ZIP Code [place] [address] [facility] [address] [facility], no room number) Troponin [...] City/State/ZIP Code [place] [address] Care Lab [address] Lab (1st floor, no room number) [...] and gender (Ruba et al., NEJM, DOI: 10.1056/[id number]) Calcium 9.2 8.8 - 10.2 mg/dL 04/04/2022 2:46 PM CDT [facility] LABORATORY Specimen Anatomical Collection Method / Collection Time Recei katya Time (Source) Location / Volume Laterality Blood VENOUS LINE / Venipuncture / 04/04/2022 2:13 2 2:19 Unknown Unknown PM CDT PM CDT Benjamin Bullock MD LAB - BLOOD ORDERABLES Performing Organization Address City/State/ZIP Code Phon [place] [phone] Care Lab [address] Lab (1st floor, no room number) EKG 12-lead, tracing only (04/04/2022 2:06 PM CDT) [facility] Method Time Signature Systolic Blood mmHg RADIOLOGY Pressure RESULTS Diastolic Blood mmHg RADIOLOGY Pressure RESULTS Ventricular Rate 92 BPM RADIOLOGY RESULTS Atrial Rate 92 BPM RADIOLOGY RESULTS NJ Interval 154 ms RADIOLOGY RESULTS QRS Duration 88 ms RADIOLOGY RESULTS QT 348 ms RADIOLOGY RESULTS QTc 430 ms RADIOLOGY RESULTS P [place] 50 degrees RADIOLOGY RESULTS R AXIS -31 degrees RADIOLOGY RESULTS T [place] 52 degrees RADIOLOGY RESULTS Interpretation Sinus rhythm RADIOLOGY ECG Left axis deviation RESULTS Abnormal ECG No previous ECGs available Specimen Anatomical Collection Method Collection Time Receive d Time (Source) Location / / Volume Laterality 04/04/2022 2:06 PM 6:49 CDT PM CDT Benjamin Bullock MD ECG ORDERABLES Performing Organization Address City/[facility]/ZIP Code Phon e Number RADIOLOGY RESULTS documented in this encounter Visit Diagnoses Diagnosis Acute pain of both shoulders Other fatigue documented in this encounter Care Teams Deliverer Food Relationship Specialty Start Date End Date Tello Torres MD PCP - General Family Practice 03/06/12 [facility] [address] [place] [address] documented as of this encounter
--- OUTSIDE RECORDS SUMMARY | 2022-07-09 07:10 | XMS_ITS | Encounter Summary ---
:1945 Author Care Team Providers Name Role Phone Tello Torres MD Primary Care Provider [phone] Reason for Visit Prostate Cancer Assessment and [...] free 05/20/2009 06/26/2010 06/10/2011 04/26/2012 05/23/2013 novel [id number] 07/04/2009 pneumococcal conjugate PCV 13 12/06/2014 pneumococcal [...] Prostate Ken Neal MD: [address] [place] [address], Ph. History of Present Illness Note: <div>76M s/p cryotherapy for cT1c Harry 3+3=6 prostate cancer 08/2021</div><div>
</div><div> </div><div> </div><div> </div><div> </div><div>Biopsy (12-30-20) 50% of [place] 3+3 from the right mid cores.</div>& lt;div>
[...]
--- OUTSIDE RECORDS SUMMARY | 2022-07-09 07:10 | XMS_ITS | Encounter Summary ---
:1945 Author Organization [facility] Address [address] [place] [address] Care Team Providers Name Role Phone Tello Torres MD Primary Care Provider Reason for Visit Auth/Cert - Closed Specialty Diagnoses / Procedures Referred By Contact Refer red To Contact Surgery Diagnoses Degenerative Joint Disease Rh Periop Services Procedures ARTHROPLASTY HIP [address] [place], [place] [address] Phone: Fax: Referral ID Status Reason Start Date Expiration Date Visits Requ ested Visits Authorized [id number] Closed 1 1 Encounter Details Date Type Department Care Team Description 03/27/2012 Surgery [facility] Jn Izquierdo, Right Total Hip PeriOp Services [address] [place] [address] CONSULTANTS [phone] [facility] [address] [place], [place] [address] (Wo rk) Surgery Details [...] Primary Orthopedics 1 Julio Meraz PA Assisting Flight Surgeon Authorization 1 Special Needs 6' / 186 [...] up apt. 10-14 days,call to make apt. [phone] Izquierdo Follow up with your [...] Izquierdo MD - 03/30/2012 1:42 PM CDT [facility] Orthopedic Post-Op Progress Note Assessment and [...] Raymundo MD - 03/30/2012 10:40 AM CDT [facility] Hospitalist Progress Note Admission day 03/27/2012 [...] phenol-menthol (CEPASTAT) lozenge 1-2 lozenge ??? DISCONTINUE ACCOUNTING SYSTEMS MANAGER by end of POD1 ??? HYDROmorphone (DILAUDID) [...] Izquierdo MD - 03/29/2012 11:06 AM CDT Mayiot Izquierdo MD - 03/29/2012 10:55 AM CDT [facility] Orthopedic Post-Op Progress Note Assessment and [...] Marino MD - 03/29/2012 9:12 AM CDT [facility] Hospitalist Progress Note Assessment and Plan: [...] OT - 03/28/2012 3:38 PM CDT 03/28/12 [id number] Living Environment [R] Lives With spouse Living [...] Mobility Skill: Scooting/Bridging, Rehab Eval Level of [place]: Scooting/Bridging minimum assist (75% patients effort) Physical Assist/Nonphysical Assist: Scooting/Bridging 1 person assist Bed Mobility Skill: Sit to Supine Level of [place]: Sit/Supine minimum assist (75% patients effort) Physical Assist/Nonphysical Assist: Sit/Supine verbal cues;supervision;1 person assist Assistive Device: Sit/Supine overhead trapeze Bed Mobility Skill: Supine to Sit Level of [place]: Supine/Sit minimum assist (75% patients effort) Physical [...] Pt lives with in their home in [place] [facility] to enter and within home. Pt has [...] Izquierdo MD - 03/28/2012 10:18 AM CDT [facility] Orthopedic Post-Op Progress Note Assessment and [...] [facility] Progress Note FR Advance [...] MT: MARÍA ELENA#[id number] Name: COLIN DIAZ Account: [id number] : 1945 Consult Date: 03/28/2012 Document: [id number] cc: Tello Torres MD documented in this encounter OR Notes OR Anesthesia - Mayito Izquierdo MD - 03/31/2012 9:39 PM CDT documented in this encounter Miscellaneous Notes Plan of Care - Bhargavi Sebastian OT - 03/30/2012 4:48 PM CDT Problem: General Rehab Plan of Care Goal: Occupational Therapy Goals The patient and/or their hostess party sales representative will achieve their patient-specific goals related [...] Individualization/Patient-Specific Goal (Adult,OB,Behavioral The patient and/or their hostess party sales representative will achieve their patient-specific goals related [...] Physical Therapy Goals The patient and/or their hostess party sales representative will achieve their patient-specific goals related [...] Occupational Therapy Goals The patient and/or their hostess party sales representative will achieve their patient-specific goals related [...] Physical Therapy Goals The patient and/or their hostess party sales representative will achieve their patient-specific goals related [...] Individualization/Patient-Specific Goal (Adult,OB,Behavioral The patient and/or their hostess party sales representative will achieve their patient-specific goals related [...] Occupational Therapy Goals The patient and/or their hostess party sales representative will achieve their patient-specific goals related [...] Physical Therapy Goals The patient and/or their hostess party sales representative will achieve their patient-specific goals related [...] Individualization/Patient-Specific Goal (Adult,OB,Behavioral The patient and/or their hostess party sales representative will achieve their patient-specific goals related [...] Physical Therapy Goals The patient and/or their hostess party sales representative will achieve their patient-specific goals related [...] Occupational Therapy Goals The patient and/or their hostess party sales representative will achieve their patient-specific goals related [...] to see daily. Plan of Care - Miaa Lee RN - 03/28/2012 2:53 PM CDT Problem: IP GENERAL POC-ADULT,OB,BEHAVIORAL FVCPM Goal: Individualization/Patient-Specific Goal (Adult,OB,Behavioral The patient and/or their hostess party sales representative will achieve their patient-specific goals related to the plan of care. The patient-specific goals include: Past medical history only for HTN. CTS: Discharge planning for return home. Large blood loss in surgery 03/27/12, questioning clotting disorder. Outcome: Improving RN: pt vss except for BP dropped the 1st time up with pt, pt passed out came to right away BUSINESS CONTROL SPECIALIST canceled and layed down and was fine [...] Physical Therapy Goals The patient and/or their hostess party sales representative will achieve their patient-specific goals related [...] Individualization/Patient-Specific Goal (Adult,OB,Behavioral The patient and/or their hostess party sales representative will achieve their patient-specific goals related [...] 5:45 AM CDT Called answering service for [facility] concerning drop in Hgb and low blood pressure. Plan of Care - Catie Fletcher RN - 03/27/2012 11:17 PM CDT Problem: IP GENERAL POC-ADULT,OB,BEHAVIORAL FVCPM Goal: Individualization/Patient-Specific Goal (Adult,OB,Behavioral The patient and/or their hostess party sales representative will achieve their patient-specific goals related [...] 9:27 AM CDT SURGEON: Mayito Izquierdo MD EGG BUYER: MELYSSA Estrella PREOPERATIVE DIAGNOSIS: End-stage degenerative joint [...] the left lateral decubitus position with the [facility] hip positioner. The right hip was sterilely [...] performed. A -5 femoral neck gave excellent protestant of leg length and stability. The wound [...] MD MT: [id number] Name: COLIN DIAZ Account: [id number] : 1945 Procedure Date: 03/27/2012 Document: [id number] cc: Tello Torres MD Pharmacy-Admission Medication History [...] (03/30/2012 5:50 AM CDT) Analysis Performed At [facility] Time Signature WBC 8.3 4.0 - 11.0 [place] 10e9[facility] RBC Count 2.96 (L) 4.4 - 5.9 [place] 10e12/L [facility] LAB Hemoglobin 9.6 (L) 13.3 - [place] 17.7 g/dL [facility] LAB Hematocrit 28.1 (L) 40.0 - [place] 53.0 [facility] MCV 95 78 - 100 [facility] LAB MCH 32.4 26.5 - [place] 33.0 [facility] LAB MCHC 34.2 31.5 - [place] 36.5 g/dL [facility] RDW 14.3 10.0 - [place] 15.0 % [facility] Platelet Count 80 (L) 150 - [address] LAB Specimen Anatomical Collection Method Collection Time Receive d Time (Source) Location / / Volume Laterality Blood specimen 03/30/2012 5:50 AM 012 6:05 (specimen) CDT AM CDT Sveta Marino MD LAB - BLOOD ORDERABLES Performing Organization Address City/State/ZIP Code Phon e Number [place] [address] [address] [place], [place] [address] [facility] LAB (ABNORMAL) CBC with platelets (03/29/2012 5:52 AM CDT) Analysis Performed At [facility] Time Signature WBC 9.2 4.0 - 11.0 [place] 10e9[facility] RBC Count 3.06 (L) 4.4 - 5.9 [place] 10e12L [facility] Hemoglobin 10.0 (L) 13.3 - [place] 17.7 g/dL [facility] Hematocrit 29.3 (L) 40.0 - [place] 53.0 % [facility] MCV 96 78 - 100 [facility] LAB MCH 32.7 26.5 - [facility] 33.0 pg [facility] MCHC 34.1 31.5 - [place] 36.5 g/dL [facility] RDW 15.0 10.0 - [place] 15.0 % [facility] Platelet Count 82 (L) 150 - 450 [place] 10e9/L [facility] LAB Specimen Anatomical Collection Method Collection Time Receive d Time (Source) Location / / Volume Laterality Blood specimen 03/29/2012 5:52 AM 012 6:20 (specimen) CDT AM CDT Harika Evans PA-C LAB - BLOOD ORDERABLES Performing Organization Address City/[facility]/ZIP Code Phon e [facility] [address] [place], [place] [address] [facility] LAB (ABNORMAL) Glucose (03/29/2012 5:52 AM CDT) athologist Signature Glucose 101 (H) 60 - 99 [place] mg/dL [facility] LAB Specimen Anatomical Collection Method Collection Time Receive d Time (Source) Location / / Volume Laterality Blood specimen 03/29/2012 5:52 AM 012 6:20 (specimen) CDT AM CDT Mayito Izquierdo MD LAB - BLOOD ORDERABLES Performing Organization Address City/[facility] Phon e Number [place] [address] [address] [place], [place] [address] [facility] LAB (ABNORMAL) Platelet count (03/28/2012 5:10 PM CDT) athologist Signature Platelet Count 95 (L) 150 - 450 [place] 10e9/[facility] LAB Specimen Anatomical Collection Method Collection Time Receive d Time (Source) Location / / Volume Laterality Blood specimen 03/28/2012 5:10 PM 012 5:29 (specimen) CDT PM CDT Harika Evans PA-C LAB - BLOOD ORDERABLES Performing Organization Address City/[facility] Phon e Number [facility] [address] [place], [place] [address] [facility] LAB (ABNORMAL) Hemoglobin (03/28/2012 5:10 PM CDT) athologist Signature Hemoglobin 10.9 (L) 13.3 - 17.7 [place] g/dL [facility] LAB Specimen Anatomical Collection Method Collection Time Receive d Time (Source) Location / / Volume Laterality Blood specimen 03/28/2012 5:10 PM 012 5:29 (specimen) CDT PM CDT Harika Bartonu PA-C LAB - BLOOD ORDERABLES Performing Organization Address City/[facility] Phon e Number [facility] [address] [place] [address] [facility] LAB (ABNORMAL) INR (03/28/2012 10:05 AM CDT) P athologist Signature INR 1.20 (H) 0.86 - 1.14 [facility] LAB Specimen Anatomical Collection Method Collection Time Receive d Time (Source) Location / / Volume Laterality Blood specimen 03/28/2012 10:05 2 (specimen) AM CDT 10:11 AM CDT Harika Bartonu PA-C LAB - BLOOD ORDERABLES Performing Organization Address City/[facility] Phon e [facility] [address] [place], [place] [address] [facility] LAB (ABNORMAL) CBC with platelets (03/28/2012 5:32 AM CDT) Analysis Performed At Patho logist Time Signature WBC 10.5 4.0 - 11.0 [place] 10e9/L [facility] LAB RBC Count 2.56 (L) 4.4 - 5.9 [place] 10e12/L [facility] LAB Hemoglobin 8.5 (L) 13.3 - [place] 17.7 g/dL [facility] LAB Hematocrit 24.6 (L) 40.0 - [facility] 53.0 % [facility] LAB MCV 96 78 - 100 [place] fl [facility] LAB MCH 33.2 (H) 26.5 - [place] 33.0 pg [facility] LAB MCHC 34.6 31.5 - [place] 36.5 g/dL [facility] LAB RDW 14.1 10.0 - [place] 15.0 % [facility] LAB Platelet Count 98 (L) 150 - 450 [place] 10e9/L [facility] LAB Specimen Anatomical Collection Method Collection Time Receive d Time (Source) Location / / Volume Laterality 03/28/2012 5:32 AM 2 9:35 CDT AM CDT Mayito Izquierdo MD LAB - BLOOD ORDERABLES Performing Organization Address City/State/ZIP Code Phon e Titus Bansal [facility] [address] [place], [place] [address] [facility] LAB (ABNORMAL) Basic metabolic panel (03/28/2012 5:32 AM CDT) athologist Signature Sodium 137 133 - 144 [place] mmol/L [facility] LAB Potassium 4.2 3.4 - 5.3 [place] mmol/L [facility] LAB Chloride 107 94 - 109 [place] mmol/L [facility] LAB Carbon Dioxide 24 20 - 32 [place] mmol/L [facility] LAB Anion Gap 6 6 - 17 [place] mmol/L [facility] LAB Glucose 117 (H) 60 - 99 [place] mg/dL [facility] LAB Urea Nitrogen 6 (L) 7 - 30 [place] mg/dL [facility] LAB Creatinine 0.68 0.66 - [facility] 1.25 mg/dL [facility] LAB GFR Estimate >90 >60 [place] mL/min/1.[address] LAB GFR Estimate If >90 >60 [place] mL/min/1.[address] [place] [address] LAB Calcium 7.4 (L) 8.5 - 10.4 [place] mg/dL [facility] LAB Specimen Anatomical Collection Method Collection Time Receive d Time (Source) Location / / Volume Laterality 03/28/2012 5:32 AM 2 9:35 CDT AM CDT Mayito Izquierdo MD LAB - BLOOD ORDERABLES Performing Organization Address City/[facility]/ZIP Code Phon e Titus Bansal [facility] [address] [place] [place], [place] [address] [facility] LAB (ABNORMAL) Hemoglobin (03/28/2012 5:30 AM CDT) athologist Signature Hemoglobin 8.5 (L) 13.3 - 17.7 [facility] g/dL [facility] Comment: Duplicate request Charge credited Specimen Anatomical Collection Method Collection Time Receive d Time (Source) Location / / Volume Laterality Blood specimen 03/28/2012 5:30 AM 012 5:32 (specimen) CDT AM CDT Mayito Izquierdo MD LAB - BLOOD ORDERABLES Performing Organization Address City/[facility]/ZIP Code Phon e Number M [facility] [address] [place], [place] [address] [facility] LAB (ABNORMAL) Glucose (03/28/2012 5:30 AM CDT) P athologist Signature Glucose 117 (H) 60 - 99 [place] mg/dL [facility] Comment: Duplicate request Charge credited Specimen Anatomical Collection Method Collection Time Receive d Time (Source) Location / / Volume Laterality Blood specimen 03/28/2012 5:30 AM 012 5:32 (specimen) CDT AM CDT Mayito Izquierdo MD LAB - BLOOD ORDERABLES Performing Organization Address City/[facility]/ZIP Code Phon e Number M [facility] [address] [place], [place] [address] [facility] LAB Platelets prepare order unit (03/27/2012 9:58 PM CDT) [facility] Method Time Signature Ordered PLT Pheresis [place] Component Type [facility] Units Ordered 1 [facility] LAB Blood Bank Test [place] Comment canceled by [facility] LAB Specimen Anatomical Collection Method Collection Time Receive d Time (Source) Location / / Volume Laterality 03/27/2012 9:58 PM 2 CDT 10:03 PM CDT Mayito Izquierdo MD BLOOD BANK PRODUCT ORDERABLE S Performing Organization Address City/[facility]/ZIP Code Phon e Number M [facility] [address] [place], [place] [address] [facility] LAB X-ray Pelvis w/ unilateral hip right [...] BERNIE Blood component (03/27/2012 8:46 AM CDT) [facility] Molecular Biometrics Method Time Signature Unit Number [id number] [facility] LAB Blood PlateletPher [place] Component Type esis,LeukoRe [facility] LAB (Part 2) Status of Unit Released to [facility] LAB Specimen Anatomical Collection Method Collection Time Receive d Time (Source) Location / / Volume Laterality 03/27/2012 8:46 AM 2 8:51 CDT AM CDT Mayito Izquierdo MD LABORATORY Performing Organization Address City/[facility]/ZIP Code Phon e Number M [facility] [address] [place], [place] [address] [facility] LAB Platelets prepare order unit (03/27/2012 8:46 AM CDT) [facility] Molecular [employer]ometrics Method Time Signature Ordered PLT Pheresis [facility] LAB Units Ordered 1 [facility] LAB Specimen Anatomical Collection Method Collection Time Receive d Time (Source) Location / / Volume Laterality 03/27/2012 8:46 AM 2 8:51 CDT AM CDT Mayito Izquierdo MD BLOOD BANK PRODUCT ORDERABLE S Performing Organization Address City/[facility]/ZIP [facility] Phon e Number M [facility] [address] [place], [place] [address] [phone] LAB Blood component (03/27/2012 8:40 AM CDT) [facility] Molecular Biometrics Method Time Signature Unit Number [id number] [facility] LAB Blood Plasma, [facility] Thawed [facility] Status of Unit Released to [facility] LAB Specimen Anatomical Collection Method Collection Time Receive d Time (Source) Location / / Volume Laterality 03/27/2012 8:40 AM 2 8:45 CDT AM CDT Mayito Izquierdo MD LABORATORY Performing Organization Address City/[facility]/ZIP Code Phon e Number M [facility] [address] [place], [place] [address] [facility] LAB Blood component (03/27/2012 8:40 AM CDT) Patholo gist Method Time Signature Unit Number [id number] [facility] LAB Blood Plasma, [facility] LAB Status of Unit [facility] LAB Specimen Anatomical Collection Method Collection Time Receive d Time (Source) Location / / Volume Laterality 03/27/2012 8:40 AM 2 8:45 CDT AM CDT Mayito Izquierdo MD LABORATORY Performing Organization Address City/[facility]/ZIP Code Phon e Number M [facility] [address] [place], [place] [address] [facility] LAB Plasma prepare order unit (03/27/2012 8:40 AM CDT) P athologist Signature Ordered Plasma [facility] LAB Units Ordered 2 [facility] LAB Specimen Anatomical Collection Method Collection Time Receive d Time (Source) Location / / Volume Laterality 03/27/2012 8:40 AM 2 8:45 CDT AM CDT Mayito Izquierdo MD BLOOD BANK PRODUCT ORDERABLE S Performing Organization Address City/[facility]/ZIP [facility] Phon e Number M [facility] [address] [place], [place] [address] [facility] documented in this encounter Visit [...] Starting Tue03/27/12 at 1300, Hold while on ACCOUNTING SYSTEMS MANAGER., Post-procedure magnesium hydroxide (MILK OF MAGNESIA) suspension [...] Starting Tue03/27/12 at 1300, Hold while on ACCOUNTING SYSTEMS MANAGER or with regular IV opioid dosing., Post-procedure documented in this encounter Care Teams Cake Knocker Relationship Specialty Start Date End Date Tello Torres MD PCP - General Family Practice 03/06/12 [facility] [address] [place] [id number] documented as of this encounter
--- OUTSIDE RECORDS SUMMARY | 2022-07-09 07:10 | XMS_ITS | Encounter Summary ---
:1945 Author Organization [place] Address [address] [place] [address] Care Team Providers Name Role Phone Tello Torres MD Primary Care Provider Reason for Visit Auth/Cert - Closed Specialty Diagnoses / Procedures Referred By Contact Refer red To Contact Surgery Diagnoses Degenerative Joint Disease Rh Periop Services Procedures ARTHROPLASTY HIP [address], [place] [address] Phone: Fax: Referral ID Status Reason Start Date Expiration Date Visits Requ ested Visits Authorized [id number] Closed 1 1 Encounter Details Date Type Department Care Team Description 03/24/2012 Hospital Encounter [facility], Laboratory MD Andrzej [address] [facility] [place] [address] CONSULTANTS [phone] [facility] [address] [place] [address] Social History Tobacco Use Types [...] Results Blood component (03/24/2012 9:00 AM CDT) [facility] gist Method Time Signature Unit Number [id number] [facility] Blood Red Blood ALBERT LEA Component Cells [facility] HOSPITAL LAB Reduced Status of Released to [facility] LAB Specimen Anatomical Collection Method Collection Time Receive d Time (Source) Location / / Volume Laterality 03/24/2012 9:00 AM 2 9:05 CDT AM CDT Andrzej Izquierdo MD LABORATORY Performing Organization Address City/[facility]/ZIP [facility] Phon e Number [facility] [facility] [address] [place], [place] [address] [facility] Blood component (03/24/2012 9:00 AM CDT) Patholo 4th aspect Method Time Signature Unit Number [id number] [facility] Blood Red Blood [facility] LAB Reduced Status of Released to [facility] LAB Specimen Anatomical Collection Method Collection Time Receive d Time (Source) Location / / Volume Laterality 03/24/2012 9:00 AM 2 9:05 CDT AM CDT Andrzej Izquierdo MD LABORATORY Performing Organization Address City/[facility]/ZIP [facility] Phon e Number [facility] [facility] [address] [place], [place] [address] [facility] Blood component (03/24/2012 9:00 AM CDT) [email or web address] Method Time Signature Unit Number [id number] [facility] Blood Red Blood [facility] LAB Reduced Status of Released to [facility] LAB Specimen Anatomical Collection Method Collection Time Receive d Time (Source) Location / / Volume Laterality 03/24/2012 9:00 AM 2 9:05 CDT AM CDT Andrzej Izquierdo MD LABORATORY Performing Organization Address City/[facility]/ZIP Code Phon e Number Rolf [facility] [address] [place], [place] [address] [facility] Blood component (03/24/2012 9:00 AM CDT) Patholo 4th aspect Method Time Signature Unit Number [id number] [facility] Blood Red Blood [facility] LAB Reduced Status of Released to [facility] LAB Specimen Anatomical Collection Method Collection Time Receive d Time (Source) Location / / Volume Laterality 03/24/2012 9:00 AM 2 9:05 CDT AM CDT Andrzej Izquierdo MD LABORATORY Performing Organization Address City/[facility]/ZIP [facility] Phon e Titus [facility] [address], [place] [address] [facility] Potassium (03/24/2012 9:00 AM CDT) P athologist Signature Potassium 3.9 3.4 - 5.3 [facility][NOTE 3] mmol/L HOSPITAL LAB Specimen Anatomical Collection Method Collection Time Receive d Time (Source) Location / / Volume Laterality 03/24/2012 9:00 AM 2 9:05 CDT AM CDT Andrzej Izquierdo MD LAB - BLOOD ORDERABLES Performing Organization Address [facility] Phon e [facility] [address], [place] [address] [phone] [place] [address] LAB Hemoglobin (03/24/2012 9:00 AM CDT) athologist Signature Hemoglobin 15.0 13.3 - 17.7 [facility][NOTE 3] g/dL HOSPITAL LAB Specimen Anatomical Collection Method Collection Time Receive d Time (Source) Location / / Volume Laterality 03/24/2012 9:00 AM 2 9:05 CDT AM CDT Andrzej Izquierdo MD LAB - BLOOD ORDERABLES Performing Organization Address City/[facility] Phon e Number [facility] [address], [place] [address] 7 [phone] [place] [address] LAB Creatinine (03/24/2012 9:00 AM CDT) P athologist Signature Creatinine 0.84 0.66 - [facility] 1.25 mg/dL [facility] GFR Estimate >90 >60 [facility] mL/min/1.7 [facility] m2 [facility] GFR Estimate If >90 >60 [facility] mL/min/1.7 [facility] m2 [facility] LAB Specimen Anatomical Collection Method Collection Time Receive d Time (Source) Location / / Volume Laterality 03/24/2012 9:00 AM 2 9:05 CDT AM CDT Andrzej Izquierdo MD LAB - BLOOD ORDERABLES Performing Organization Address City/[facility]/ZIP Code Phon e Number [facility] [address] [place], [place] [address] [facility] ABO/Rh type and screen (03/24/2012 9:00 AM CDT) [facility] gist Method Time Signature Units Ordered 4 [facility] ABO O [facility] RH(D) Pos [facility] Antibody Screen Neg [facility] Specimen 03/30/2012 [facility] LAB Crossmatch Red Blood [facility] LAB Specimen Anatomical Collection Method Collection Time Receive d Time (Source) Location / / Volume Laterality 03/24/2012 9:00 AM 2 9:05 CDT AM CDT Andrzej Izquierdo MD LAB - BLOOD BANK TEST ORDER Performing Organization Address [facility] Phon e Number [facility] [address] [place], [place] [address] [facility] documented in this encounter Visit Diagnoses Not on filedocumented in this encounter Care Teams Operator Helper Relationship Specialty Start Date End Date Tello Torres MD PCP - General Family Practice 03/06/12 [facility] [address] [place] [address] documented as of this encounter
--- OUTSIDE RECORDS SUMMARY | 2022-07-09 07:10 | XMS_ITS ---
:1945 Author Care Team Providers Name Role Phone AUSTIN MCCAIN MD Primary Care Provider [phone] Allergies Code Code System Name Reaction Severity [...] 11/13/2020 MRI, Prostate, W/wo Contrast [facility] [place] [address] [place] [address] (Work Place) Results Lab Results [...] of Prostate Ken Neal MD: [address], [place] [address], Ph. 12/10/2021 Raised Prostate Specific Antigen; Malign ant Tumor of Prostate Tom Bond MD: [address], [place] [address], Ph. 09/11/2021 Malignant Tumor of Prostate Tom Bond MD: [address], [place] [address], Ph. 07/13/2021 Malignant Tumor of Prostate Tom Bond MD: [address], [place] [address], Ph. 07/13/2021 Tom Bond MD: [address], [place] [address], Ph. 02/19/2021 Malignant Tumor of Prostate Tom Bond MD: [address], [place] [address], Ph. 01/22/2021 Raised Prostate Specific Antigen; Benign Prostatic Hyperplasia with Outflow Obstruction; Malignant Tumor of Prostate Tom Bond MD: [address], [place] [address], Ph. Social History Tobacco Smoking Status Former [...] free 05/20/2009 06/26/2010 06/10/2011 04/26/2012 05/23/2013 novel [id number] 07/04/2009 pneumococcal conjugate PCV 13 12/06/2014 pneumococcal [...]
--- OUTSIDE RECORDS SUMMARY | 2022-07-09 07:10 | XMS_ITS | Clinical Summary ---
:1945 Author Organization [employer] [facility] [place] [address] Care Team Providers Name Role Phone Narendra Torres MD [facility] Un[facility] Allergies No known active [...] Comments Blood Pressure 147/88 09/08/2021 3:15 PM LEDGE MAN Pulse 84 09/08/2021 3:15 PM LEDGE MAN Temperature 36.5 ??C (97.7 ??F) 09/08/2021 2:15 PM LEDGE MAN Respiratory Rate 18 09/08/2021 3:15 PM LEDGE MAN Oxygen Saturation 98% 09/08/2021 2:15 PM LEDGE MAN Inhaled Oxygen Concentration - - Weight 88.5 kg (195 lb) 09/08/2021 9:13 AM LEDGE MAN Height 182.9 cm (6') 09/08/2021 9:13 AM LEDGE MAN Body Mass Index 26.45 09/08/2021 9:13 AM LEDGE MAN Plan of Treatment Health Maintenance Due Date [...] Group MEDICARE PART A MEDICARE PART A [id number] 2011-Present ATTN: CLAIMS - HB USE ONLY HB ONLY [address] [place] [address] [employer]AH MEDICARE [id number] 2019-Present [address] [place] [address] Advance Directives Latest Code Status on File Code Status Date Activated Date Inactivated Comments Full Code 09/08/2021 8:53 AM 09/09/2021 2:30 AM Code Status Discussion: Not Discussed Care Teams System Support Developer Relationship Specialty Start Date End Date Narendra Torres MD PCP - General Family Practice 08/19/21 [address] [place] [address] Tom Bond MD Surgery - Urology 09/07/21
--- NOTE | 2022-07-09 07:15 | CRLHL7_ITS ---
For Patients: As a result of the 21st Century Cures Act, medical imaging exams and procedure reports are released immediately into your electronic medical record. You may view this report before your referring provider. If you have questions, please contact your health care provider. INDICATION: Lumbar stenosis with neurogenic claudication. TECHNIQUE: Multiplanar multisequence noncontrast MR images acquired through the lumbar spine. COMPARISON: None. FINDINGS: Mild rightward lumbar curvature. The lumbar lordosis is preserved. No acute fracture. No concerning T1 hypointense marrow replacing lesions. Normal conus terminates at L1. T12-L1: Tdaq-xt-giczodyb disc degeneration. No spinal canal or neural foraminal narrowing. L1-2: Moderate disc degeneration. No spinal canal or neural foraminal narrowing. L2-3: Mild retrolisthesis. Moderately advanced disc degeneration. Posterior disc bulge. Mild facet arthropathy. Moderate spinal canal and lateral recess narrowing. Mild bilateral neural foraminal narrowing. L3-4: Moderate disc degeneration. Annular fissure. Circumferential disc bulge. Superimposed central disc protrusion measuring 5 mm in short axis. Advanced bilateral facet arthropathy. Thickening ligamentum flavum. Bilateral facet effusions. Severe spinal canal and lateral recess stenosis. Hvea-zf-xaagolud left and mild right neural foraminal narrowing. L4-5: Grade 1 anterolisthesis measuring 4 mm. Moderately advanced disc degeneration. Moderate left eccentric disc height loss. Left eccentric disc bulging and endplate spondylitic ridging. Advanced left and moderately advanced right facet arthropathy. Thickening ligamentum flavum. Moderately severe spinal canal and lateral recess stenosis. Moderately severe left and mild right neural foraminal narrowing. L5-S1: Advanced disc degeneration. Disc height loss. Posterior disc bulging and endplate spondylitic ridging. Osbq-fs-iefqoilt facet arthropathy. No spinal canal narrowing. Mild bilateral neural foraminal narrowing. Sacroiliac joint degenerative changes. Small T2 hyperintense lesions in the kidneys, typical for renal cysts. IMPRESSION: 1. At L2-3, moderate spinal canal and lateral recess narrowing. 2. At L3-4, central disc protrusion and advanced facet arthropathy contribute to severe spinal canal and lateral recess stenosis. 3. At L4-5, grade 1 anterolisthesis contributing to moderately severe spinal canal and lateral recess stenosis. There is moderately severe left neural foraminal stenosis. Dictated by Ken Sena MD @ 07/09/2022 9:44:55 AM (Electronically Signed)
== END 2022-07-09 07:08 | disposition home or self-care (01) ==
LOC: MRI 07:08
PROVIDERS: PCP Family Medicine; Visit Provider Physician Assistant Surgical
DX: M48.062 Spinal stenosis, lumbar region with neurogenic claudication (principal); M51.26 Other intervertebral disc displacement, lumbar region
CPT/HCPCS: 72148

== ENCOUNTER 2022-09-30 14:00 | Outpatient (RCR) | payer MEDICARE, SELFPAY ==
--- NOTE | 2022-06-23 14:18 | PT.OPEX ---
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 He has had PT for his back and right hip 5-10 years ago. He did exercises which were helpful, but hasn't done these for awhile. As of this summer he was still playing softball and racketball but just can't do anything twisting anymore. He worked out at the [employer] where he did regular: rowing, squats with a twist, lunges BOSU balance . Currently getting up from lying or sitting is the most painful. But standing for more than a couple of minutes is difficult and painful. Pt stands with a large right shift. supine right hip flexion causes nerve pain down the outside of his right leg . trunk mobility is limited. MMTs for hip flex, knee ext and knee flex are 5/5 - no problem with strength. pt takes 1 Alleve per day even though his doctor told him to take 2. pt will benefit from PT for MT, TE, mechanical traction and education regarding resonable expections and activities for someone with an minimal discs in his lumbar spine. He is seeing a back surgeon for consult next week. Plan of Care Rehabilitation Potential Fair Physical Therapy Goals 1. pt will be competent and compliant with home ex, limitations and ice 2. in 6 wks pt will be able to stand up from his painfree sitting with 2/10 max LBP 3. in 10 wks pt will be able to stand without a shift in his back for 5 minutes before he gets pain in his back &/0r legs 4. in 12 minutes pt will be able to drive the work van comfortably and get out of the van without back or leg pain Coordination/Communication With Referral Source Treatment Plan/Direct Interventions Manual Therapy,Self-Care/Home Management,Therapeutic Exercises,Traction (Mechanical ) Patient Will Be Discharged From Therapy Independently Progressing Evaluation Billing Complexity High Certification Information Initial Certification Date 06/23/22 Ending Certification Date 09/20/22 Provider Signature Shows Agreement With POC & Medical Necessity Physician Signature & Date Requested Please Sign/Date Here Physician Comment/Change : Physician NPI Number #
== END 2022-09-30 15:15 | disposition home or self-care (01) ==
PROVIDERS: PCP Family Medicine; Visit Provider Family Medicine
DX: M54.10 Radiculopathy, site unspecified (principal); Z51.89 Encounter for other specified aftercare
CPT/HCPCS: 97110; 97140; 97163

== ENCOUNTER 2022-10-13 11:00 | Outpatient (CLI) | payer MEDICARE, SELFPAY ==
[2022-10-13 11:05] VITALS: BP 151/90; PULSE 88; RESP 16; O2SAT 97
[2022-10-13] MEDS: TETRACAINE 0.5% OPHTH 1 DROP EYE-RIGHT ×3 (11:14→11:32)
[2022-10-13] MEDS: BRIMONIDINE TARTRATE 0.2% OPHTH 1 DROP EYE-RIGHT ×2 (11:15→11:50)
--- NOTE | 2022-10-13 12:00 | P.OPTPRC_ITS ---
Procedure Note Date of procedure: 10/13/22 Will [facility] bill your pro fee for this procedure?: Yes Procedure Description: SURGEON: Soha Snyder MD PREOPERATIVE DIAGNOSIS: Posterior capsular opacity, right eye POSTOPERATIVE DIAGNOSIS: Posterior capsular opacity, right eye PROCEDURE: YAG laser capsulotomy, right eye ANESTHESIA: Topical. ESTIMATED BLOOD LOSS: None PATHOLOGY SPECIMEN: None COMPLICATIONS: None INDICATIONS: See consult note for details. The risks, benefits and alternatives of the procedure were explained to the patient, who elected to proceed and signed informed consent to do so. PROCEDURE: The patient was brought to the pre-holding area where the right eye was identified as the operative eye. I placed my initials above this eye. The patient received 2 sets of 1 drop of 0.5% tetracaine and 1 drop of 1% tropicamide. They also received 1 drop of 0.2% brimonidine. They received 1 drop of 0.5% tetracaine immediately prior to bringing them back for the procedure. The patient was then brought to the procedure room where the right eye was again identified as the operative eye. A YAG Carlton capsulotomy lens was placed on the eye. The laser was administered using a total number of 21 shots with an energy of 2.4 mJ per shot for a total energy of 50 mJ. The patient tolerated the procedure well. DISPOSITION: The patient was taken back to the pre-holding area and given 1 drop of 0.2% brimonidine in the right eye. They were discharged to home in stable condition. The patient was instructed to call me or go to the emergency department with any sudden change, including dramatic loss of vision, severe pain in the eye or eyebrow region, nausea, or vomiting. The patient was instructed to use the 0.2% brimonidine 1 drop 2 times a day in the right eye for 1 week. The patient will follow up in the clinic in 1-2 weeks. Surgeon: Soha Snyder MD
== END 2022-10-13 11:50 | disposition home or self-care (01) ==
LOC: OP CLINIC 11:02
PROVIDERS: PCP Family Medicine; Visit Provider Ophthalmology
DX: H26.9 Unspecified cataract (principal)
CPT/HCPCS: 66821; A9270

== ENCOUNTER 2023-05-20 09:57 | Outpatient (CLI) | payer MEDICARE, SELFPAY ==
--- OUTSIDE RECORDS SUMMARY | 2023-05-20 10:01 | XMS_ITS | Continuity of Care Document ---
Author Name Unknown Organization [facility] Address [address] [place] [address] Phone Care Team Providers Care Stationary Steam Engineer Name Role Phone Surendra Baldwin Unavailable Unavailable Allergies, Adverse Reactions, Alerts Substance Reaction Status Criticality No Known Allergies Active No Inform ation Medications Medication Instructions Dosage Effective Dates (start - stop) Status Comments ORGOVYX (unknown strength) Not Available - Active NIACIN (unknown strength) Not Available - Active NAPROXEN (unknown strength) Not Available - Active MULTIVITAMINS (unknown strength) Not Available - Active FERROUS GLUCONATE (unknown strength) Not Available - Active ATORVASTATIN CALCIUM (unknown strength) Not Available - Active Procedures Procedure Date Office/Outpatient Visit,[facility] 2021 Advance Directives Directive Yes / No Effective Date File Name No Information Encounters Encounter Description Practice Location Reason(s) For Visit Diagnoses Date Provider Providers Copied on Encounter [facility], [address], [place], [id number], [place] tel:[phone] No Information Kamar Agosto. [address] [address], [place], [id number] , [place]. tel: [phone] Office/Outpat ient Visit,[facility], [address], [place], [id number], [place] tel:[phone] [place] [facility] Spinal stenosis, lumbar region with neurogenic claudication Kamar Agosto. [address] [address], [place], [id number] , [place]. tel: [phone] Referring Provider: Tello Correa, [facility] [address], [place], [address]. tel:[phone] Family History Family Member Type Diagnosis Age At Onset No Information Payers Payer name Insurance type Covered republican ID Authordouglas vivas(s) [employer] Medicare [facility] 2021 [id number] Social History Type Description Quantity Date Captured Comments Sex Male Smoking Status No Information Chief Complaint And Reason For Visit No Information Reason For Referral Reason For Referral No Information History Of Present Illness Encounter Date Complaint History Of Prese nt Illness No Information Functional Status Date Functional Assessmen t No Information Instructions Date Instruction Additional Infor mation No Information Assessments Type Assessment Date No Information Patient Care Teams Name Effective Dates (start - stop) Status Members No Information
== END 2023-05-20 09:58 | disposition home or self-care (01) ==
PROVIDERS: PCP Family Medicine; Visit Provider Family Medicine
DX: Z00.00 Encounter for general adult medical examination without abnormal findings (principal); I10 Essential (primary) hypertension; E78.5 Hyperlipidemia, unspecified; Z13.0 Encounter for screening for diseases of the blood and blood-forming organs and certain disorders involving the immune mechanism
CPT/HCPCS: 80048; 80061

== ENCOUNTER 2024-05-23 10:10 | Outpatient (CLI) | payer MEDICARE, SELFPAY ==
--- OUTSIDE RECORDS SUMMARY | 2024-05-23 10:13 | XMS_ITS | Continuity of Care Document ---
Author Organization [facility] Address [address] [place] [address] Phone Care Team Providers Care A&P Mechanic Name Role Phone Surendra Baldwin Unavailable Unavailable Allergies, Adverse Reactions, Alerts Substance Reaction Status Criticality No Known Allergies Active No Inform ation Medications Medication Instructions Dosage Effective Dates (start - stop) Status Comments ATORVASTATIN CALCIUM (unknown strength) Not Available - Active FERROUS GLUCONATE (unknown strength) Not Available - Active MULTIVITAMINS (unknown strength) Not Available - Active NAPROXEN (unknown strength) Not Available - Active NIACIN (unknown strength) Not Available - Active ORGOVYX (unknown strength) Not Available - Active Procedures Procedure Date Office/Outpatient Visit,[facility] [place] Advance Directives Directive Yes / No Effective Date File Name No Information Encounters Encounter Description Practice Location Reason(s) For Visit Diagnoses Date Provider Providers Copied on Encounter [facility], [address], [place], [id number], [place] tel:[phone] No Information 2 Kamar Agosto. [address] [address], [place], [id number] , [place]. tel: [phone] Office/Outpat ient Visit,[facility], [address], [place], [id number], [place] tel:[phone] [place] [facility] Spinal stenosis, lumbar region with neurogenic claudication 2 Kamar Agosto. [address] [address], [place], [id number] , [place]. tel:[phone] Referring Provider: Tello Correa, [facility] [address] [place], [address]. tel:[phone] Family History Family Member Type Diagnosis Age At Onset No Information Payers Payer name Insurance type Covered alliance party ID Authornixona sangeetha(s) [employer] Medicare [facility] 2021 CI [id number] Social History Type Description Quantity Date Captured [...]
--- OUTSIDE RECORDS SUMMARY | 2024-05-23 10:13 | XMS_ITS | Clinical Summary ---
Author Organization [facility] Address [address] [place] [address] Care Team Providers Care Commissioning Manager Name Role Phone Tello Torres MD Primary Care Provider [phone] Allergies No known active allergies Medications Medication Sig Dispensed Refills Start Date End Date Status Atorvastatin Calcium (LIPITOR PO) Take 10 mg by mouth At Bedtime. Active NIACIN CR PO Take 500 mg by mouth At Bedtime. Active Multiple Vitamin (MULTI-VITAMIN) per tablet Take 1 tablet by mouth daily. Active oxyCODONE (ROXICODONE) 5 MG immediate release tabletIndications:Sta tus post THR (total hip replacement) Take 1-2 tablets by mouth every 3 hours as needed. 50 tablet 03/29/2012 Active Active Problems Problem Noted Date Diagnosed Date Status post THR (total hip replacement) 03/27/20 12 Resolved Problems Problem Noted Date Diagnosed Date Resolved Date Advanced directives, counseling/discussion 03/27/2012 01/30/2024 Overview: Received outside advance directive. HCD:Previously signed by patient and notarized by supervisor publications. Corporate Legal Intern scanned into EMR as Advance Directive/Living Will document. View document and details in Code Status History Report. Please see advance directive for specifics. 03/27/2012 Social History Tobacco Use Types Packs/Day Years Used Date Smoking Tobacco: Former Cigarettes Q uit: 03/17/1987 Alcohol Use Standard Drinks/Week Comments Yes 0 (1 standard drink = 0.6 oz pur e alcohol) 1 drink every other day Adolescent Education Answer Date Record ed Getting School Help Needed Not on file 05/21 Sex and Gender Information Value Date Recorded Sex Assigned at Not on file Gender Identity Not on file Sexual Orientation Not on file Last Filed Vital Signs Vital Sign Reading Time Taken Comments Blood Pressure 132/87 04/04/2022 3:00 PM CDT Pulse 88 04/04/2022 3:00 PM CDT Temperature 36.8 ??C (98.3 ??F) 04/04/2022 1:27 PM CD T Respiratory Rate 16 04/04/2022 1:27 PM CDT Oxygen Saturation 95% 04/04/2022 3:15 PM CDT Inhaled Oxygen Concentration - - Weight 84.8 kg (187 lb) 03/27/2012 5:45 AM CDT Height 182.9 cm (6') 03/27/2012 5:39 AM CDT Body Mass Index 25.36 03/27/2012 5:39 AM CDT Plan of Treatment Health Maintenance Due Date Last Done Comments ANNUAL REVIEW OF HM ORDERS 1946 LIPID 1946 HEPATITIS C SCREENING 1964 LUNG CANCER SCREENING 1996 FALL RISK ASSESSMENT 2011 MEDICARE ANNUAL WELLNESS VISIT 2011 ADVANCE CARE PLANNING 03/27/2017 03/27/2012 Pneumococcal Vaccine: 65+ Years (3 of 3 - PPSV23 or PCV20) 12/07/2019 12/06/2014, 11/20/2010, 10/22/2009 RSV VACCINE (1 - 1-dose 75+ series) 2021 PHQ-2 (once per calendar year) 2023 COVID-19 Vaccine (2023- season) 2024 07/01/2021, 10/31/2020, 10/03/2020 INFLUENZA VACCINE (#1) 2024 , 06/18/2019, 06/03/2018, Additional history exists GLUCOSE 04/04/2025 04/04/2022, 03/15, 03/28/2012, Additional history exists DTAP/TDAP/TD IMMUNIZATION (3 - Td or Tdap) 04/11/2029 04/11/2019, 10/22/2009 ZOSTER IMMUNIZATION Completed 02/18/2021, 12/17/2020, 09/13/2007 HPV IMMUNIZATION Aged Out No longer e ligible based on patient's age to complete this topic MENINGITIS IMMUNIZATION Aged Out No l onger eligible based on patient's age to complete this topic RSV MONOCLONAL ANTIBODY Aged Out No l onger eligible based on patient's age to complete this topic Medical Devices Implanted Type Area Environmental Services Manager Device Identifier Shelf Expiration Date Model / Serial / Lot Imp Shell Acetabulum Howm 58mm 542-11-58g Implanted:Qty: 1 on 03/27/2012 by Andrzej Izquierdo MD at [facility] Right: Hip 01/26/2016 542-11-58G / / [id number] Imp Scr Osteonics 6.5x20mm Acetabular Implanted:Qty: 1 on 03/27/2012 by Andrzej Izquierdo MD at [facility] Right: Hip 12/25/2016 1 / / [id number] Imp Scr Osteonics 6.5x20mm Acetabular Implanted:Qty: 1 on 03/27/2012 by Andrzej Izquierdo MD at [facility] Right: Hip 02/24/[id number]- 1 / / [id number] Imp Liner Strk Trident X3 Poly 36mm 10deg Sz G 623-10-36g Implanted:Qty: 1 on 03/27/2012 by Andrzej Izquierdo MD at [facility] Right: Hip 11/25/2016 623-10-36G / / [id number] Neck Anglehip Stem Implanted:Qty: 1 on 03/27/2012 by Andrzej Izquierdo MD at [facility] Right: Hip [employer] 09/27/2016 / / [id number] Imp Head Femoral Strk Biolox Delta Ceramic 36mm -5mm Implanted:Qty: 1 on 03/27/2012 by Andrzej Izquierdo MD at [facility] Right: Hip 11/25/2016 6570-0-036 / / [id number] Procedures Procedure Name Priority Date/Time Associated Diagnosis Comments BASIC METABOLIC PANEL STAT 04/04/2022 2:13 PM CDT from Last 3 Months or Most Recently Relevant to Health Maintenance Results * (ABNORMAL) Basic metabolic panel (04/04/2022 2:13 PM CDT) Creatinine 0.78 0.67 - 1.17 mg/dL 04/04/2022 2:46 PM CDT [facility] Sodium 137 136 - 145 mmol/L 04/04/2022 2:46 PM CDT [facility] Potassium 4.1 3.4 - 5.3 mmol/L 04/04/2022 2:46 PM CDT [facility] Urea Nitrogen 11.2 8.0 - 23.0 mg/dL 04/04/2022 2:46 PM CDT [facility] Chloride 103 98 - 107 mmol/L 04/04/2022 2:46 PM CDT [facility] Carbon Dioxide (CO2) 26 22 - 29 mmol/L 04/04/2022 2:46 PM CDT [facility] Anion Gap 8 7 - 15 mmol/L 04/04/2022 2:46 PM CDT [facility] Glucose 128(H) 70 - 99 mg/dL 04/04/2022 2:46 PM CDT [facility] GFR Estimate >90 >60 mL/min/1.7 3m2 04/04/2022 2:46 PM CDT [facility] Comment:Effective July 162020 eGFRcr in adults is calculated using the 2020 CKD-EPI creatinine equation which includes age and gender (Ruba et al., NEJ, DOI: 10.1056/QTYPny7506904) Calcium 9.2 8.8 - 10.2 mg/dL 04/04/2022 2:46 PM [facility]T [facility] Blood VENOUS LINE / Unknown Venipuncture / Unknown 04/04/2022 2:13 PM CDT 04/04/2022 2:19 PM CDT Benjamin Bullock MD LAB - BLOOD ORDERABL [facility] [address] (1st floor, no room number) [place] [address], [facility] [phone] from Last 3 Months or Most Recently Relevant to Health Maintenance Advance Directives For more information, please contact: [phone] * Full Code (Latest Code Status on File) Date Activated Date Inactivated Comments 03/29/2012 10:59 AM 04/04/2022 1:21 PM * Full Code Date Activated Date Inactivated Comments 03/27/2012 1:01 PM 03/29/2012 10:59 AM Care Teams Commissioning Manager Relationship Specialty Start Date End Date Tello Torres MD PCP - General Family Practice 03/06/12
--- OUTSIDE RECORDS SUMMARY | 2024-05-23 10:13 | XMS_ITS | Referral Summary ---
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 Device Identifier Shelf Expiration Date Model / Serial / Lot Imp Shell Acetabulum Howm 58mm 542-11-58g Implanted:Qty: 1 on 03/27/2012 by Andrzej Izquierdo MD at [facility] Right: Hip 01/26/2016 542-11-58G / / [id number] Imp Scr Osteonics 6.5x20mm Acetabular Implanted:Qty: 1 on 03/27/2012 by Andrzej Izquierdo MD at [facility] Right: Hip 12/25/[id number]- 1 / / [id number] Imp Scr Osteonics 6.5x20mm Acetabular Implanted:Qty: 1 on 03/27/2012 by Andrzej Izquierdo MD at [facility] Right: Hip 02/24/[id number]- 1 / / [id number] Imp Liner Strk Trident X3 Poly 36mm 10deg Sz G 623-10-36g Implanted:Qty: 1 on 03/27/2012 by Andrzej Izquierdo MD at [facility] Right: Hip 11/25/2016 623-10-36G / / [id number] Neck Anglehip Stem Implanted:Qty: 1 on 03/27/2012 by Andrzej Izquierdo MD at [facility] Right: Hip [employer] 09/27/2016 / / [id number] Imp Head Femoral Strk Biolox Delta Ceramic 36mm -5mm Implanted:Qty: 1 on 03/27/2012 by Andrzej Izquierdo MD at [facility] Right: Hip 11/25/2016 6570-0-036 / / [id number] Procedures Procedure Name Priority Date/Time Associated Diagnosis [...] includes age and gender (Ruba et al., NEJM, DOI: 10.1056/OLZWtw8594336) Calcium 9.2 8.8 - 10.2 mg/dL 04/04/2022 2:46 PM CDT [facility] Blood VENOUS LINE / Unknown Venipuncture / Unknown 04/04/2022 2:13 PM CDT 04/04/2022 2:19 PM CDT Benjamin Bullock MD LAB - BLOOD ORDERABL ES LAB[facility] Acute Care Lab [address] (1st floor, no room number) [place] [address], [facility] [phone] from Last 3 Months or Most Recently Relevant to Health Maintenance Advance Directives For more information, please contact: [phone] * Full Code (Latest Code Status on File) Date Activated Date Inactivated Comments 03/29/2012 10:59 AM 04/04/2022 1:21 PM * Full Code Date Activated Date Inactivated Comments 03/27/2012 1:01 PM 03/29/2012 10:59 AM Care Teams Gang Drill Operator Relationship Specialty Start Date End Date Tello Torres MD PCP - General Family Practice 03/06/12
--- OUTSIDE RECORDS SUMMARY | 2024-05-23 10:14 | XMS_ITS | Clinical Summary ---
Author Organization [facility] Address [place], [place] [address] Care Team Providers Care Chemistry Manager Name Role Phone Narendra Torres MD Primary Care Provider [phone] [facility], Tom Burgess MD Unavailable [phone] Allergies No known active allergies Medications Medication Sig Dispensed Refills Start Date End Date Status atorvastatin (LIPITOR) 20 mg tablet Take 1 tablet by mouth once daily. 03/19/2020 Active niacin 500 mg tablet Take 1 tablet by mouth once daily. 0 04/02/2020 Active multivitamin (MULTIPLE VITAMINS) tablet Take 1 tablet by mouth once daily. 0 04/02/2020 Active naproxen (ALEVE) 220 mg tablet Take 1 tablet by mouth 2 times daily with meals. 0 04/02/2020 Active FERROUS GLUCONATE ORAL Take 324 mg by mouth once daily. Active oxyCODONE-acetamin ophen (PERCOCET) 5-325 mg per tabletIndications: Prostate cancer (HC) Take 1 Tablet by mouth every 6 hours if needed for Pain. Max acetaminophen dose: 4000mg in 24 hrs. 8 Tablet 09/08/2021 Active tamsulosin (FLOMAX) 0.4 mg capsule TAKE ONE CAPSULE (0.4MG) BY MOUTH EVERY DAY AT BEDTIME 09/07/2022 Active Active Problems No known active problems Social History Tobacco Use Types Packs/Day Years Used Date Smoking Tobacco: Former Cigarettes Q uit: 1986 Smokeless Tobacco: Never Tobacco Cessation:Counseling Given: Yes Alcohol Use Standard Drinks/Week Comments Yes 0 (1 standard drink = 0.6 oz pur e alcohol) 1-2 per day Social Connections Answer Date Recorded Frequency of Communication with Friends and Fami ly Not on file 09/20/2022 Sex and Gender Information Value Date Recorded Sex Assigned at Not on file Gender Identity Not on file Sexual Orientation Not on file Obstetrics History Last Filed Vital Signs Vital Sign Reading Time Taken Comments Blood Pressure 151/93 02/22/2023 3:00 PM CDT tow er Pulse 83 02/22/2023 3:00 PM CDT Temperature 36.8 ??C (98.3 ??F) 12/23/2022 8:46 AM CD T Respiratory Rate 18 09/08/2021 3:15 PM SPACE ENGINEER Oxygen Saturation 96% 02/22/2023 3:00 PM CDT Inhaled Oxygen Concentration - - Weight 96.2 kg (212 lb) 02/22/2023 3:00 PM CDT Height 182.9 cm (6') 09/08/2021 9:13 AM SPACE ENGINEER Body Mass Index 28.75 09/08/2021 9:13 AM SPACE ENGINEER Plan of Treatment Health Maintenance Due Date Last Done Comments Tdap 1957 Depression screening for age 12+ 1958 BMI (ht and wt on same day) for age 18+ 1964 Hepatitis C screening for ag e 18-79 1964 Tetanus booster 1966 Zoster (shingles) series for age 50+ (1 of 2) 1996 Medicare Wellness for age 65+ 2011 Pneumococcal series for age 65+ (1 of 1 - PCV) 2011 RSV vaccine for adults or (1 - 1-dose 75+ series) 2021 COVID-19 vaccine series ( season) 2024 05/06/2022, 01/25/2022, 07/01/2021, Additional history exists Influenza for age 65+ 04/15/2024 Advance Directives * Full Code (Latest Code Status on File) Date Activated Date Inactivated Comments 09/08/2021 8:53 AM 09/09/2021 2:30 AM Question Answer Comments Code Status Discussion: Not Discussed Care Teams Chemistry Manager Relationship Specialty Start Date End Date Narendra Torres MD PCP - General Family Practice 08/19/21 Tom Bond MD Surgery - Urology 09/07/21
== END 2024-05-23 10:11 | disposition home or self-care (01) ==
PROVIDERS: PCP Family Medicine; Visit Provider Family Medicine
DX: Z00.00 Encounter for general adult medical examination without abnormal findings (principal); I10 Essential (primary) hypertension; E78.5 Hyperlipidemia, unspecified
CPT/HCPCS: 80048; 80061

== ENCOUNTER 2025-05-24 09:47 | Outpatient (CLI) | payer MEDICARE, SELFPAY | END 2025-05-24 09:48 | disposition home or self-care (01) | PROVIDERS: PCP Family Medicine; Visit Provider Family Medicine | DX: I10 Essential (primary) hypertension (principal); E78.00 Pure hypercholesterolemia, unspecified | CPT/HCPCS: 80048; 80061 ==

== ENCOUNTER 2025-07-08 10:23 | Outpatient (CLI) | payer MEDICARE, SELFPAY | END 2025-07-08 10:24 | disposition home or self-care (01) | PROVIDERS: PCP Family Medicine; Visit Provider Family Medicine | DX: R58 Hemorrhage, not elsewhere classified (principal) | CPT/HCPCS: 80076; 85240; 85245; 85246; 85730 ==